=== PATIENT | female | born 1970 | race Hispanic/Latino ===

== ENCOUNTER → 2018-11-02 | Day surgery (SDC) | payer BC, MEDICARE ==
[~2018-11-02] MED LIST: BUPIVACAINE HCL 0.5% INJ 30 ML VIAL INJ ONE; BUSPIRONE HCL5 MG PO; CEFAZOLIN SOD 1 GM/NS 50ML 100 ML IV ONE; CYMBALTA20 MG PO; DEXAMETHASONE SOD PHOS INJ 4 MG/ML VIAL ONE; ETODOLAC400 MG PO; FENTANYL CITRATE/PF 100MCG/2 ML INJ ONE; GABAPENTIN300 MG PO; HUMIRA40 MG/0.8 IM; HYDROMORPHONE 2MG/ML 2 MG/ML ML ONE; KETOROLAC TROMETHAMINE 30 MG/ML VIAL ONE; LEFLUNOMIDE20 MG PO; LIDOCAINE HCL 2% LOCAL INJ 5 ML SDV VIAL INJ ONE; LYRICA50 MG PO; MELOXICAM7.5 MG PO; METOPROLOL SUCC50 MG PO; MIDAZOLAM HCL 2 MG/2 ML VIAL ONE; MUPIROCIN 2% OINT 22 GM TUBE ONE; ONDANSETRON HCL INJ 2MG/ML 2ML 2 MG/ML VIAL ONE; ONDANSETRON PO; PROPOFOL IV EMULSION 10 MG/ML 20 ML VIAL ONE; SEVOFLURANE INHAL SOLN 250 ML PEN BTL ONE; SULFASALAZINE500 MG PO; TIZANIDINE HCL4 MG PO; TYLENOL WITH C1 EACH PO
--- OUTSIDE RECORDS SUMMARY | 2018-11-02 09:01 | XMS REPORT | Continuity of Care Document ---
Author Author YEVVO Address Unknown Phone Unavailable Care Team Providers Care Sanitation Engineer Name Role Phone [employer] Unavailable Unavailable Problems Problem Status Onset Date Classification Date Reported Comments Source R19.7 R13.10 Active 04/14/2018 [facility] Low back pain 03/05/2018 09/16/2018 [facility] Back pain 02/27/2018 09/16/2018 [facility] Abdominal pain 02/27/2018 09/16/2018 [facility] ABD PAIN Active 02/27/2018 [facility] Klebsiella2, 3 Active 07/28/2014 Problem 10/30/2018 ESBL (+), MDRO, URINE, 07/28/2014 Problem added by Discern Expert. [facility] UNK Active 04/21/2014 [facility] 682.2/789.00/45100 Active 04/21/2014 [facility] 789.06 Active 03/21/2014 [facility] ABD PAIN; INFECTED LAP BAND Active 03/21/2014 [facility] LWR BACK PAIN, DIZZY Active 03/06/2014 [facility] POSSIBLE LAP BAND INFECTION Active 03/06/2014 [facility] ABDOMINAL PAIN Active 03/06/2014 [facility] 278.01 Active 01/26/2014 [facility] Discharge Diagnosis: GERD 01/09/2014 01/12/2014 [facility] DOCTOR SENT Active 01/09/2014 [facility] 530.81 Active 12/23/2013 [facility] Muscle spasm of back2 Active Problem 07/31/2014 2left lower rib cage also [facility] Acid reflux Resolved Problem 10/30/2018 [facility] Anxiety Active Problem 10/30/2018 [facility] Chest pain at rest1 Resolved Problem 10/30/2018 retrosternal region with movement but no exertionally [facility] Dysphagia Active Problem 10/30/2018 [facility] Muscle spasm of back4 Active Problem 10/30/2018 left lower rib cage also [facility] SOBOE - Shortness of breath on exertion Resolved Problem 10/30/2018 JULIO Salgado,[facility] Right lower quadrant pain 09/16/2018 [facility] Nausea with vomiting, unspecified 09/16/2018 [facility] Dysuria 09/16/2018 [facility] Anxiety disorder, unspecified 09/16/2018 [facility] Personal history of nicotine dependence 09/16/2018 [facility] Unspecified ovarian cyst, left side 09/16/2018 [facility] Other snf drug therapy 09/16/2018 [facility] FEVER Active [facility] ABDMNAL PAIN UNSPCF SITE Active [facility] CELLULITIS OF TRUNK Active [facility] 789.00 Active [facility] 997.91 Active [facility] Medications Medication Details Route Status Patient Instructions Ordering Provider Order Date Source Medrol 4 mg oral tablet =1 pkt, PO, ONCE, as directed on package labeling, # 21 tab, 0 Refill(s) Active 02/27/2018 [facility] Ondansetron 4 MG Oral Tablet [Zofran] 4 mg=1 tab, PO, BID, # 10 tab, 0 Refill(s) Active 02/27/2018 [facility] Acetaminophen 300 MG / Codeine Phosphate 30 MG Oral Tablet [Tylenol with Codeine #3] 1 - 2 tab, PO, Q4H, PRN Pain, X 3 day, # 20 tab, 0 Refill(s) No Longer Active 02/27/2018 [facility] Acetaminophen 325 MG / Hydrocodone Bitartrate 7.5 MG Oral Tablet [Proctor 7.5/325] 1 tab, Route: PO, Drug Form: TAB, Dosing Weight 98.636, kg, ONCE, STAT, Start date: 02/27/18 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, Stop date: 02/27/18 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 Inactive 02/27/2018 [facility] Zofran 4 mg, Route: IVP, Drug form: INJ, ONCE, Dosing Weight 98.636, kg, Priority: STAT, Start date: 02/27/18 5:33:00 LOGGING OPERATIONS INSPECTOR, Stop date: 02/27/18 5:33:00 LOGGING OPERATIONS INSPECTOR Inactive 02/27/2018 [facility] Sodium Bicarbonate 650 MG Oral Tablet 1,300 mg=2 tab, PO, Q12H, # 56 tab, 0 Refill(s) Active 05/03/2014 [facility] clarithromycin 250 mg oral tablet 250 mg=1 tab, PO, [id number], # 28 tab, 0 Refill(s) Active 05/03/2014 [facility] Levofloxacin 750 MG Oral Tablet [Levaquin] 750 mg=1 tab, PO, Q48H, # 7 tab, 0 Refill(s) Active 05/03/2014 [facility] Cefazolin 2 gm, 100 mL, Route: IVPB, Drug form: INJ, ONCALL, Dosing Weight 91.023, kg, Start date: 05/01/14 13:00:00, Duration: 30 day, Stop date: 05/31/14 12:59:00Notes: Same as: Ancef No Longer Active 05/01/2014 [facility] Clindamycin 900 mg, 6 mL, Route: IVPB, Drug form: INJ, PRE OP, Dosing Weight 91.023, kg, Start date: 05/01/14 13:00:00, Duration: 30 day, Stop date: 05/31/14 12:59:00Notes: (Same As: Cleocin) Inactive 05/01/2014 [facility] Sodium Bicarbonate 1,300 mg, 2 tab, Route: PO, Drug form: TAB, Q12H, Dosing Weight 91.023, kg, Start date: 04/30/14 21:00:00, Duration: 30 day, Stop date: 05/30/14 9:00:00Notes: "Dissolve tablet in a glass of water p rior to oral administration. STOMACH WARNING: To avoid serious injury, do not take until tablet is completely dissolved. It is very important not to take this product when overly full from food or drink." No Longer Active 05/01/2014 [facility] Lovenox 30 mg, 0.3 mL, Route: SUB-Q, Drug form: INJ, [id number], Dosing Weight 91.023, kg, For CrCl Notes: (Same as: Lovenox) No Longer Active 04/30/2014 [facility] gabapentin 100 MG Oral Capsule [Neurontin] 100 mg, 1 cap, Route: PO, Drug form: CAP, Daily, Dosing Weight 91.023, kg, Start date: 04/30/14 9:00:00, Duration: 30 day, Stop date: 05/29/14 9:00:00Notes: (Same as: Neurontin) No Longer Active 04/30/2014 [facility] Biaxin 250 mg, 1 tab, Route: PO, Drug form: TAB, [id number], Dosing Weight 91.023, kg, Start date: 04/30/14 2:00:00, Duration: 30 day, Stop date: 05/29/14 14:00:00Notes: (Same As: Biaxin) No Longer Active 04/30/2014 [facility] Reglan 5 mg, 1 mL, Route: IV, Drug form: INJ, [id number], Dosing Weight 91.023, kg, Start date: 04/29/14 17:00:00, Duration: 30 day, Stop date: 05/29/14 9:00:00Notes: (Same as: Reglan) No Longer Active 04/29/2014 [facility] gabapentin 100 MG Oral Capsule 100 mg, 1 cap, Route: PO, Drug form: CAP, TID, Dosing Weight 91.023, kg, Start date: 04/28/14 13:00:00, Duration: 30 day, Stop date: 05/28/14 9:00:00Notes: (Same as: Neurontin) No Longer Active 04/28/2014 [facility] cyclobenzaprine 10 mg, 1 tab, Route: PO, Drug form: TAB, TID, Dosing Weight 91.023, kg, PRN as needed for muscle spasm, Start date: 04/28/14 9:17:00, Stop date: 05/28/14 9:16:00Notes: (Same As: Flexeril) No Longer Active 04/28/2014 [facility] Zosyn 3.375 gm, 100 mL, Route: IVPB, Drug form: PDR/INJ, [id number], Dosing Weight 91.023, kg, Start date: 04/27/14 16:00:00, Duration: 30 day, Stop date: 05/27/14 4:00:00Notes: (Same as: Zosyn) Infuse over 4 hours. Activate and reconstitute before use. Dosing based on Piperacillin component Inactive 04/27/2014 [facility] Biaxin 250 mg, 1 tab, Route: PO, Drug form: TAB, [id number], Dosing Weight 91.023, kg, Start date: 04/27/14 14:00:00, Stop date: 05/27/14 2:00:00Notes: (Same As: Biaxin) No Longer Active 04/27/2014 [facility] Levaquin 750 mg, 150 mL, Route: IVPB, Drug form: SOLN, [id number], Dosing Weight 91.023, kg, Start date: 04/27/14 14:00:00, Duration: 30 day, Stop date: 05/25/14 14:00:00Notes: (Same as:Levaquin) No Longer Active 04/27/2014 [facility] Vitamin B1 100 mg, 1 tab, Route: PO, Drug form: TAB, Daily, Start date: 04/27/14 9:00:00, Duration: 30 day, Stop date: 05/26/14 9:00:00Notes: (Same As: Vitamin B1) No Longer Active 04/27/2014 [facility] NS 1000 mL 1,000 mL, Rate: 80 ml/hr, Infuse over: 12.5 hr, Route: IV, Dosing Weight 91.023 kg, Total Volume: 1,000, Start date: 04/26/14 10:07:00, Duration: 30 day, Stop date: 05/26/14 10:06:00 No Longer Active 04/26/2014 [facility] Sodium Chloride 0.154 MEQ/ML Injectable Solution 500 mL, 500 ml/hr, Infuse Over: 1 hr, Route: IV, 500, Drug form: INJ, ONCE, Priority: STAT, Dosing Weight 91.023 kg, Start date: 04/26/14 10:07:00, Duration: 1 doses or times, Stop date: 04/26/14 10:07:00 Inactive 04/26/2014 [facility] phenol topical 1.4% spray 1 spray, Route: PO, Q2H, Drug form: SPRY, PRN Sore Throat, Start date: 04/25/14 13:04:00, Duration: 30 day, Stop date: 05/25/14 13:03:00 No Longer Active 04/25/2014 [facility] Thiamine 100 mg, 1 mL, Route: IVPB, Drug form: INJ, Daily, Dosing Weight 91.023, kg, Priority: NOW, Start date: 04/25/14 12:18:00, Duration: 30 day, Stop date: 05/25/14 9:00:00Notes: (Same As: Vitamin B1) PRO TECT FROM LIGHT No Longer Active 04/25/2014 [facility] Benzocaine 50 MG/ML Mucosal Vidal [Cepacol] 1 spray, Route: MUCOUS MEM, Drug Form: SOLN, Dosing Weight 91.023, kg, Q2H, PRN Sore Throat, Start date: 04/25/14 12:11:00, Duration: 30 day, Stop date: 05/25/14 12:10:00 Inactive 04/25/2014 [facility] Enoxaparin 30 mg, 0.3 mL, Route: SUB-Q, Drug form: INJ, [id number], Dosing Weight 91.023, kg, Start date: 04/25/14 1:19:00, Duration: 30 day, Stop date: 05/24/14 13:19:00Notes: (Same as: Lovenox) No Longer Active 04/25/2014 [facility] Zosyn 3.375 gm, 100 mL, Route: IVPB, Drug form: PDR/INJ, [id number], Dosing Weight 91.023, kg, Start date: 04/24/14 19:00:00, Duration: 30 day, Stop date: 05/24/14 11:00:00Notes: (Same as: Zosyn) Infuse over 4 hours. Activate and reconstitute before use. Dosing based on Piperacillin component No Longer Active 04/25/2014 [facility] Vancomycin 1 gm, 200 mL, Route: IVPB, Drug form: INJ, [id number], Dosing Weight 91.023, kg, Start date: 04/24/14 19:00:00, Duration: 30 day, Stop date: 05/24/14 7:00:00 No Longer Active 04/25/2014 [facility] Dilaudid 0.5 mg, 0.5 mL, Route: IV, Drug form: INJ, Q3H, Dosing Weight 91.023, kg, PRN Pain Score 7-10, Start date: 04/24/14 18:31:00, Duration: 30 day, Stop date: 05/24/14 18:30:00 No Longer Active 04/25/2014 [facility] Ketorolac 30 mg, 1 mL, Route: IVP, Drug form: INJ, Q6H, Dosing Weight 91.023, kg, Start date: 04/24/14 18:00:00, Duration: 6 doses or times, Stop date: 04/26/14 0:00:00Notes: (Same as:Toradol) IV bolus must be given >15 seconds. Give IM administration slowly and deeply into the muscle. Not for use > 4 days No Longer Active 04/25/2014 [facility] Metoclopramide 10 mg, 2 mL, Route: IVP, Drug form: INJ, Q8H, Dosing Weight 91.023, kg, Start date: 04/24/14 16:00:00, Duration: 30 day, Stop date: 05/24/14 8:00:00Notes: (Same as: Reglan) No Longer Active 04/24/2014 [facility] Ondansetron 4 mg, 2 mL, Route: IVP, Drug form: INJ, Q6H, Dosing Weight 91.023, kg, PRN Nausea & Vomiting, Start date: 04/24/14 15:55:00, Stop date: 05/24/14 13:21:00Notes: (Same as: Zofran) No Longer Active 04/24/2014 [facility] Flagyl 500 mg, 100 mL, Route: IVPB, Drug form: INJ, [id number], Dosing Weight 91.023, kg, Start date: 04/24/14 14:00:00, Duration: 30 day, Stop date: 05/24/14 8:00:00Notes: (Same as: Flagyl) Avoid alcohol. Inactive 04/24/2014 [facility] Levofloxacin 500 mg, 100 mL, Route: IVPB, Drug form: INJ, [id number], Dosing Weight 91.023, kg, Start date: 04/24/14 14:00:00, Duration: 30 day, Stop date: 05/23/14 14:00:00Notes: (Same as:Levaquin) Inactive 04/24/2014 [facility] Dilaudid 0.5 mg, 0.5 mL, Route: IV, Drug form: INJ, POST OP, Dosing Weight 91.023, kg, PRN Pain Score 7-10, Start date: 04/24/14 13:35:00, Duration: 30 day, Stop date: 05/24/14 13:34:00 No Longer Active 04/24/2014 [facility] Zofran 4 mg, Route: IVP, Drug form: INJ, ONCE, Dosing Weight 91.023, kg, Start date: 04/24/14 13:34:00, Stop date: 04/24/14 13:34:00 Inactive 04/24/2014 [facility] Acetaminophen 650 mg, 1 supp, Route: HI, Drug form: SUPP, Q4H, Dosing Weight 91.023, kg, PRN For Temp > 100.4 F, Start date: 04/24/14 13:23:00, Duration: 30 day, Stop date: 05/24/14 13:22:00Notes: Max acetaminophe e=9345 mg/day (4 gm/day). (Same as: Tylenol) No Longer Active 04/24/2014 [facility] Metoprolol 2.5 mg, 2.5 mL, Route: IVP, Drug form: INJ, Q6H, Dosing Weight 91.023, kg, PRN Elevated BP, Systolic BP >180 or Diastolic BP >100, Start date: 04/24/14 13:23:00, Duration: 30 day, Stop date: 05/24/14 13:22:00Notes: (Same as: Lopressor) Push over 2 minutes No Longer Active 04/24/2014 [facility] Ondansetron 4 mg, Route: IVP, Q12H, Dosing Weight 91.023, kg, PRN Nausea & Vomiting, Start date: 04/24/14 13:23:00, Duration: 30 day, Stop date: 05/24/14 13:22:00 Inactive 04/24/2014 [facility] Promethazine 12.5 mg, 0.5 mL, Route: IM, Drug form: INJ, Q4H, Dosing Weight 91.023, kg, PRN Nausea & Vomiting, Start date: 04/24/14 13:23:00, Duration: 30 day, Stop date: 05/24/14 13:22:00Notes: Do not give IV pu sh. (Same as: Phenergan) No Longer Active 04/24/2014 [facility] Calcium Chloride 0.0014 MEQ/ML / Potassium Chloride 0.004 MEQ/ML / Sodium Chloride 0.103 MEQ/ML / Sodium Lactate 0.028 MEQ/ML Injectable Solution 1,000 mL, Rate: 125 ml/hr, Infuse over: 8 hr, Route: IV, Dosing Weight 91.023 kg, Total Volume: 1,000, Start date: 04/24/14 13:23:00, Duration: 30 day, Stop date: 05/24/14 13:22:00 No Longer Active 04/24/2014 [facility] Cefazolin 2 gm, Route: IVPB, ONCALL, Dosing Weight 91.818, kg, Start date: 04/24/14 9:00:00, Duration: 30 day, Stop date: 05/24/14 8:59:00 Inactive 04/24/2014 [facility] heparin sodium, porcine 2500 UNT/ML Injectable Solution 5,000 unit, 1 mL, Route: SUB-Q, Drug form: INJ, ONCE, Dosing Weight 92.273, kg, Start date: 04/24/14 8:44:00, Stop date: 04/24/14 8:44:00 Inactive 04/24/2014 [facility] 72 HR Scopolamine 0.0139 MG/HR Transdermal Patch 1 patch, Route: TOP, Drug Form: ERFILM, Dosing Weight 92.273, kg, ONCE, Start date: 04/24/14 8:44:00, Stop date: 04/24/14 8:44:00 Inactive 04/24/2014 [facility] [id number] 1,000 mL 1,000 mL, Rate: 100 ml/hr, Infuse over: 10 hr, Route: IV, Dosing Weight 91.818 kg, Total Volume: 1,000, Start date: 04/24/14 8:44:00, Duration: 30 day, Stop date: 05/24/14 8:43:00 Inactive 04/24/2014 [facility] Calcium Chloride 0.0014 MEQ/ML / Potassium Chloride 0.004 MEQ/ML / Sodium Chloride 0.103 MEQ/ML / Sodium Lactate 0.028 MEQ/ML Injectable Solution 1,000 mL, Rate: 125 ml/hr, Infuse over: 8 hr, Route: IV, Dosing Weight 91.818 kg, Total Volume: 1,000, Start date: 04/24/14 8:44:00, Duration: 30 day, Stop date: 05/24/14 8:43:00 Inactive 04/24/2014 [facility] ibuprofen 600 mg oral tablet 600 mg=1 tab, PO, Q6H, Pain, take with food, # 30 tab, 0 Refill(s)Special Instructions: take with food Active 04/21/2014 [facility] cyclobenzaprine 10 mg oral tablet 10 mg=1 tab, PO, Daily, for spasm, # 30 tab, 0 Refill(s) Active 04/21/2014 [facility] gabapentin 100 MG Oral Capsule 200 mg=2 cap, PO, TID, # 720 cap, 0 Refill(s) Active 04/21/2014 [facility] Sodium Chloride 0.154 MEQ/ML Injectable Solution 500 mL, Rate: 25 ml/hr, Infuse over: 20 hr, Route: IV, Dosing Weight 92.273 kg, Total Volume: 500, Start date: 04/21/14 12:03:00, Duration: 30 day, Stop date: 05/21/14 12:02:00 Inactive 04/21/2014 [facility] Acetaminophen 300 MG / Codeine Phosphate 30 MG Oral Tablet [Tylenol with Codeine #3] 1 - 2 tab, PO, Q6H, Pain, # 24 tab, 0 Refill(s) Active 03/10/2014 [facility] Levofloxacin 500 MG Oral Tablet [Levaquin] 500 mg=1 tab, PO, Q24H, # 14 tab, 0 Refill(s) Active 03/10/2014 [facility] Pepcid 20 mg, 1 tab, Route: PO, Drug form: TAB, Q12H, Start date: 03/08/14 21:00:00, Duration: 30 day, Stop date: 04/07/14 9:00:00Notes: (Same as: Pepcid) No Longer Active 03/09/2014 [facility] Fluzone Quadrivalent [id number] 0.5 mL, Route: IM, Drug Form: SUSP, Daily, Start date: 03/08/14 10:00:00, Duration: 1 doses or times, Stop date: 03/08/14 10:00:00Notes: (Same as: Fluzone Quadrivalent) Inactive 03/08/2014 [facility] Famotidine 20 mg, 2 mL, Route: IVP, Drug form: INJ, Q12H, Dosing Weight 92.273, kg, Start date: 03/07/14 21:00:00, Duration: 30 day, Stop date: 04/06/14 9:00:00Notes: (Same as: Pepcid) Can be dilute in 5-10cc NS IVP: Slow IV push over at least 2 minutes. No Longer Active 03/08/2014 [facility] Ketorolac 30 mg, 1 mL, Route: IVP, Drug form: INJ, Q6H, Dosing Weight 92.273, kg, Start date: 03/07/14 18:00:00, Duration: 6 doses or times, Stop date: 03/09/14 0:00:00Notes: (Same as:Toradol) IV bolus must be given >15 seconds. Give IM administration slowly and deeply into the muscle. Not for use > 4 days No Longer Active 03/08/2014 [facility] Metoclopramide 10 mg, 2 mL, Route: IVP, Drug form: INJ, Q8H, Dosing Weight 92.273, kg, Start date: 03/07/14 16:00:00, Duration: 30 day, Stop date: 04/06/14 8:00:00Notes: (Same as: Reglan) No Longer Active 03/07/2014 [facility] Ondansetron 4 mg, 2 mL, Route: IVP, Drug form: INJ, Q12H, Dosing Weight 92.273, kg, PRN Nausea & Vomiting, Start date: 03/07/14 15:37:00, Duration: 30 day, Stop date: 04/06/14 15:36:00Notes: (Same as: Zofran) No Longer Active 03/07/2014 [facility] Promethazine 12.5 mg, 0.5 mL, Route: IM, Drug form: INJ, Q4H, Dosing Weight 92.273, kg, PRN Nausea & Vomiting, Start date: 03/07/14 15:37:00, Duration: 30 day, Stop date: 04/06/14 15:36:00Notes: Do not give IV pu sh. (Same as: Phenergan) No Longer Active 03/07/2014 [facility] Metoprolol 2.5 mg, 2.5 mL, Route: IVP, Drug form: INJ, Q6H, Dosing Weight 92.273, kg, PRN Elevated BP, Systolic BP >180 or Diastolic BP >100, Start date: 03/07/14 15:37:00, Duration: 30 day, Stop date: 04/06/14 15:36:00Notes: (Same as: Lopressor) Push over 2 minutes No Longer Active 03/07/2014 [facility] Acetaminophen 650 mg, 1 supp, Route: HI, Drug form: SUPP, Q4H, Dosing Weight 92.273, kg, PRN For Temp > 100.4 F, Start date: 03/07/14 15:37:00, Duration: 30 day, Stop date: 04/06/14 15:36:00Notes: Max acetaminophe w=1727 mg/day (4 gm/day). (Same as: Tylenol) No Longer Active 03/07/2014 [facility] Calcium Chloride 0.0014 MEQ/ML / Potassium Chloride 0.004 MEQ/ML / Sodium Chloride 0.103 MEQ/ML / Sodium Lactate 0.028 MEQ/ML Injectable Solution 1,000 mL, Rate: 125 ml/hr, Infuse over: 8 hr, Route: IV, Dosing Weight 92.273 kg, Total Volume: 1,000, Start date: 03/07/14 15:37:00, Duration: 30 day, Stop date: 04/06/14 15:36:00 No Longer Active 03/07/2014 [facility] Vancomycin 1 gm, 200 mL, Route: IVPB, Drug form: INJ, [id number], Dosing Weight 92.273, kg, Start date: 03/07/14 13:30:00, Duration: 30 day, Stop date: 04/06/14 1:30:00 No Longer Active 03/07/2014 [facility] cefepime 1 gm, Route: IVPB, [id number], Dosing Weight 92.273, kg, (CrCl 30 - 49 ml/min), Start date: 03/07/14 12:00:00, Duration: 30 day, Stop date: 04/06/14 0:00:00Notes: (Same As: Maxipime) No Longer Active 03/07/2014 [facility] Morphine 4 mg, 2 mL, Route: IVP, Drug form: INJ, Q3H, Dosing Weight 92.273, kg, PRN Pain Score 7-10, Start date: 03/07/14 11:32:00, Stop date: 04/06/14 11:24:00Notes: (Same as:MORPhine Sulfate) No Longer Active 03/07/2014 [facility] Morphine 4 mg, Route: IVP, Q4H, Dosing Weight 92.273, kg, PRN Pain, Start date: 03/07/14 11:26:00, Duration: 30 day, Stop date: 04/06/14 11:25:00 Inactive 03/07/2014 [facility] Naloxone 0.1 mg, 0.25 mL, Route: IVP, Drug form: INJ, Q2MIN, Dosing Weight 92.273, kg, PRN Narcotic Reversal, Start date: 03/07/14 10:53:00, Duration: 4 doses or times, Stop date: Limited # of timesNotes: Same as Narcan No Longer Active 03/07/2014 [facility] Flumazenil 0.1 mg, 1 mL, Route: IVP, Drug form: INJ, Q5Min, Dosing Weight 92.273, kg, PRN Other -See Comment, Start date: 03/07/14 10:53:00, Duration: 30 day, Stop date: 04/06/14 10:52:00Notes: (Same as: Errol reeder) No Longer Active 03/07/2014 [facility] Lactated Ringers IV 500 mL 500 mL, Rate: 40 ml/hr, Infuse over: 12.5 hr, Route: IV, Dosing Weight 92.273 kg, Total Volume: 500, Start date: 03/07/14 9:27:00, Duration: 1 day, Stop date: 03/08/14 9:26:00 Inactive 03/07/2014 [facility] Sodium Chloride 0.154 MEQ/ML Injectable Solution 500 mL, Rate: 25 ml/hr, Infuse over: 20 hr, Route: IV, Dosing Weight 92.273 kg, Total Volume: 500, Start date: 03/07/14 9:27:00, Duration: 30 day, Stop date: 04/06/14 9:26:00 Inactive 03/07/2014 [facility] Influenza Virus Vaccine, Inactivated N-Wswsnicz-58 (H3N2)-like virus (U-Sbwrsjc-957-2007 [facility] X-175C) strain / Influenza Virus Vaccine, Inactivated N-Bssbeinu-52-2007, IVR-148 (H1N1) strain / Influenza Virus Vaccine, Inactivated, N-Emghgsm-8-2005-lik 0.5 mL, Route: IM, Drug Form: SUSP, Daily, Start date: 03/07/14 9:00:00, Duration: 1 doses or times, Stop date: 03/07/14 9:00:00Notes: (Same as: Fluzone Quadrivalent) No Longer Active 03/07/2014 [facility] acetaminophen-codeine #3 2 tab, PO, PRN, for pain, 0 Refill(s) No Longer Active 03/07/2014 [facility] Saline Flush 0.9% 10 ml, Route: IVP, Drug Form: INJ, Dosing Weight 92.273, kg, PRN, PRN Line Flush, Start date: 03/07/14 2:20:00, Duration: 30 day, Stop date: 04/06/14 2:19:00Notes: (Same as: BD Posiflush) No Longer Active 03/07/2014 [facility] Sodium Chloride 0.154 MEQ/ML Injectable Solution 1,000 mL, Rate: 100 ml/hr, Infuse over: 10 hr, Route: IV, Dosing Weight 92.273 kg, Total Volume: 1,000, Start date: 03/07/14 2:20:00, Duration: 30 day, Stop date: 04/06/14 2:19:00 Inactive 03/07/2014 [facility] Acetaminophen 650 mg, 2 tab, Route: PO, Drug form: TAB, Q4H, Dosing Weight 92.273, kg, PRN Pain 1-3/Temp > 100.4 F, Start date: 03/07/14 2:20:00, Duration: 30 day, Stop date: 04/06/14 2:19:00Notes: Do not exceed 4 gm/day. (Same as: Tylenol) Inactive 03/07/2014 [facility] Ondansetron 4 mg, 2 mL, Route: IVP, Drug form: INJ, Q8H, Dosing Weight 92.273, kg, PRN Nausea & Vomiting, Start date: 03/07/14 2:20:00, Duration: 30 day, Stop date: 04/06/14 2:19:00Notes: (Same as: Zofran) Inactive 03/07/2014 [facility] Morphine 2 mg, 1 mL, Route: IVP, Drug form: INJ, Q3H, Dosing Weight 92.273, kg, PRN Pain Score 4-6, Start date: 03/07/14 2:20:00, Duration: 30 day, Stop date: 04/06/14 2:19:00Notes: (Same as:MORPhine Sulfate) No Longer Active 03/07/2014 [facility] Docusate 100 mg, 1 cap, Route: PO, Drug form: CAP, BID, Dosing Weight 92.273, kg, PRN Constipation, Start date: 03/07/14 2:20:00, Duration: 30 day, Stop date: 04/06/14 2:19:00Notes: (Same as: Colace) (Do Not Crush) No Longer Active 03/07/2014 [facility] Vancomycin 1,750 mg, 500 mL, Route: IVPB, Drug form: SOLN, ONCE, Dosing Weight 92.273, kg, Priority: STAT, Start date: 03/07/14 0:03:00, Stop date: 03/07/14 0:03:00Notes: Same as: Vancocin Inactive 03/07/2014 [facility] cefepime 1 gm, Route: IVPB, ONCE, Dosing Weight 92.273, kg, Priority: STAT, Start date: 03/07/14 0:03:00, Stop date: 03/07/14 0:03:00 Inactive 03/07/2014 [facility] Flagyl 500 mg, 100 mL, Route: IVPB, Drug form: INJ, ONCE, Dosing Weight 92.273, kg, Priority: STAT, Start date: 03/07/14 0:03:00, Stop date: 03/07/14 0:03:00Notes: (Same as: Flagyl) Avoid alcohol. Inactive 03/07/2014 [facility] Morphine 4 mg, Route: IVP, Drug form: INJ, ONCE, Dosing Weight 92.273, kg, Priority: STAT, Start date: 03/06/14 23:04:00, Stop date: 03/06/14 23:04:00 Inactive 03/07/2014 [facility] Morphine 4 mg, Route: IVP, Drug form: INJ, ONCE, Dosing Weight 92.273, kg, Priority: STAT, Start date: 03/06/14 20:25:00, Stop date: 03/06/14 20:25:00 Inactive 03/07/2014 [facility] Famotidine 20 MG Oral Tablet [Pepcid] 20 mg, Route: IV, ONCE, Dosing Weight 92.273, kg, Start date: 03/06/14 19:15:00, Stop date: 03/06/14 19:15:00 Inactive 03/07/2014 [facility] Zofran 4 mg, Route: IVP, Drug form: INJ, ONCE, Dosing Weight 92.273, kg, Priority: STAT, Start date: 03/06/14 19:15:00, Stop date: 03/06/14 19:15:00 Inactive 03/07/2014 [facility] normal saline 0.9% IV 1000 mL 1,000 mL, Rate: 1,000 ml/hr, Infuse over: 1 hr, Route: IV, Dosing Weight 92.273 kg, Total Volume: 1,000, Priority: STAT, Start date: 03/06/14 19:15:00, Duration: 1 doses or times, Stop date: 03/06/14 20:14:00 Inactive 03/07/2014 [facility] Metoclopramide 10 mg, Route: IVP, Drug form: INJ, Q8H, Dosing Weight 100.057, kg, Start date: 02/07/14 16:00:00, Duration: 30 day, Stop date: 03/09/14 8:00:00 Inactive 02/07/2014 [facility] Ketorolac 30 mg, Route: IVP, Q6H, Dosing Weight 100.057, kg, Start date: 02/07/14 12:00:00, Duration: 6 doses or times, Stop date: 02/08/14 18:00:00 Inactive 02/07/2014 [facility] Acetaminophen 20 MG/ML / Hydrocodone Bitartrate 0.667 MG/ML Oral Solution [Zolvit] 15 mL, Route: PO, Dosing Weight 100.057, kg, ONCE, Start date: 02/07/14 10:33:00, Stop date: 02/07/14 10:33:00 Inactive 02/07/2014 [facility] Promethazine 6.25 mg, Route: IVPB, ONCE, Dosing Weight 100.057, kg, PRN Nausea & Vomiting, Start date: 02/07/14 9:05:00 Inactive 02/07/2014 [facility] Ondansetron 4 mg, Route: IVP, ONCE, Dosing Weight 100.057, kg, PRN Nausea & Vomiting, Start date: 02/07/14 9:05:00 Inactive 02/07/2014 [facility] Oxycodone 10 mg, Route: PO, Drug form: TAB, Q4H, Dosing Weight 100.057, kg, PRN Pain Score 7-10, Start date: 02/07/14 9:05:00, Duration: 30 day, Stop date: 03/09/14 9:04:00 Inactive 02/07/2014 [facility] Hydralazine 10 mg, Route: IVP, Q20Min, Dosing Weight 100.057, kg, PRN Elevated BP, Start date: 02/07/14 9:05:00, Duration: 2 doses or times, Stop date: Limited # of times Inactive 02/07/2014 [facility] Ketorolac 30 mg, Route: IVP, ONCE, Dosing Weight 100.057, kg, Start date: 02/07/14 9:05:00, Duration: 1 doses or times, Stop date: 02/07/14 9:05:00 Inactive 02/07/2014 [facility] Metoprolol 1 mg, Route: IVP, Q5Min, Dosing Weight 100.057, kg, PRN Other -See Comment, Start date: 02/07/14 9:05:00, Duration: 5 doses or times, Stop date: Limited # of times Inactive 02/07/2014 [facility] Fentanyl 25 microgram, Route: IVP, Q5Min, Dosing Weight 100.057, kg, PRN Pain Score 4-6, Start date: 02/07/14 9:05:00, Duration: 4 doses or times, Stop date: Limited # of times Inactive 02/07/2014 [facility] Naloxone 0.04 mg, Route: IVP, Q2MIN, Dosing Weight 100.057, kg, PRN Narcotic Reversal, Start date: 02/07/14 9:05:00, Duration: 8 doses or times, Stop date: Limited # of times Inactive 02/07/2014 [facility] Flumazenil 0.2 mg, Route: IVP, PRN, Dosing Weight 100.057, kg, PRN Benzodiazepine Reversal, Initial dose, Start date: 02/07/14 9:05:00, Duration: 30 day, Stop date: 03/09/14 9:04:00 Inactive 02/07/2014 [facility] Hydromorphone 0.5 mg, Route: IVP, Q5Min, Dosing Weight 100.057, kg, PRN Pain Score 7-10, Start date: 02/07/14 9:05:00, Duration: 4 doses or times, Stop date: Limited # of times Inactive 02/07/2014 [facility] Morphine 4 mg, Route: IVP, Q5Min, Dosing Weight 100.057, kg, PRN Pain Score 7-10, Start date: 02/07/14 9:05:00, Duration: 3 doses or times, Stop date: Limited # of times Inactive 02/07/2014 [facility] Meperidine 12.5 mg, Route: IVP, Q30Min, Dosing Weight 100.057, kg, PRN Other -See Comment, For shivering, Start date: 02/07/14 9:05:00, Duration: 2 doses or times, Stop date: Limited # of times Inactive 02/07/2014 [facility] Glycopyrrolate 0.2 mg, Route: IVP, Q5Min, Dosing Weight 100.057, kg, PRN Bradycardia, Start date: 02/07/14 9:05:00, Duration: 3 doses or times, Stop date: Limited # of times Inactive 02/07/2014 [facility] Diphenhydramine 12.5 mg, Route: IVP, Drug form: INJ, Q6H, Dosing Weight 100.057, kg, PRN Itching, Start date: 02/07/14 9:05:00, Duration: 30 day, Stop date: 03/09/14 9:04:00 Inactive 02/07/2014 [facility] Metoprolol 2.5 mg, Route: IVP, Q6H, Dosing Weight 100.057, kg, PRN Elevated BP, Systolic BP >180 or Diastolic BP >100, Start date: 02/07/14 8:43:00, Duration: 30 day, Stop date: 03/09/14 8:42:00 Inactive 02/07/2014 [facility] Promethazine 12.5 mg, Route: IM, Q4H, Dosing Weight 100.057, kg, PRN Nausea & Vomiting, Start date: 02/07/14 8:43:00, Duration: 30 day, Stop date: 03/09/14 8:42:00 Inactive 02/07/2014 [facility] Acetaminophen 650 mg, Route: PO, Drug form: ELIX, Q4H, Dosing Weight 100.057, kg, PRN Pain Score 1-3, Start date: 02/07/14 8:43:00, Duration: 30 day, Stop date: 03/09/14 8:42:00 Inactive 02/07/2014 [facility] Ondansetron 4 mg, Route: IVP, Q12H, Dosing Weight 100.057, kg, PRN Nausea & Vomiting, Start date: 02/07/14 8:43:00, Duration: 30 day, Stop date: 03/09/14 8:42:00 Inactive 02/07/2014 [facility] Calcium Chloride 0.0014 MEQ/ML / Potassium Chloride 0.004 MEQ/ML / Sodium Chloride 0.103 MEQ/ML / Sodium Lactate 0.028 MEQ/ML Injectable Solution 1,000 mL, Rate: 25 ml/hr, Infuse over: 40 hr, Route: IV, Dosing Weight 100.057 kg, Total Volume: 1,000, Start date: 02/07/14 8:06:00, Duration: 30 day, Stop date: 03/09/14 8:05:00 Inactive 02/07/2014 [facility] Cefazolin 2 gm, 100 mL, Route: IVPB, Drug form: INJ, ONCALL, Dosing Weight 100.057, kg, Start date: 02/01/14 15:00:00, Duration: 7 day, Stop date: 02/08/14 14:59:00Notes: Same as: Ancef No Longer Active 02/01/2014 [facility] 72 HR Scopolamine 0.0139 MG/HR Transdermal Patch 1 patch, Route: TOP, Drug Form: ERFILM, Dosing Weight 104.318, kg, ONCE, Start date: 02/01/14 14:01:00, Stop date: 02/01/14 14:01:00Notes: Change patch every 72 hours (Same as: Transderm-Scop) No Longer Active 02/01/2014 [facility] mt570k 1,000 mL 1,000 mL, Rate: 100 ml/hr, Infuse over: 10 hr, Route: IV, Dosing Weight 100.057 kg, Total Volume: 1,000, Start date: 02/01/14 14:01:00, Duration: 30 day, Stop date: 03/03/14 14:00:00 No Longer Active 02/01/2014 [facility] heparin sodium, porcine 2500 UNT/ML Injectable Solution 5,000 unit, 1 mL, Route: SUB-Q, Drug form: INJ, ONCE, Dosing Weight 104.318, kg, Start date: 02/01/14 14:01:00, Stop date: 02/01/14 14:01:00Notes: porcine heparin No Longer Active 02/01/2014 [facility] Calcium Chloride 0.0014 MEQ/ML / Potassium Chloride 0.004 MEQ/ML / Sodium Chloride 0.103 MEQ/ML / Sodium Lactate 0.028 MEQ/ML Injectable Solution 1,000 mL, Rate: 125 ml/hr, Infuse over: 8 hr, Route: IV, Dosing Weight 100.057 kg, Total Volume: 1,000, Start date: 02/01/14 14:01:00, Duration: 7 day, Stop date: 02/08/14 14:00:00 No Longer Active 02/01/2014 [facility] GI cocktail 30 mL, Route: PO, Dosing Weight 104.318, kg, ONCE, STAT, Start date: 01/09/14 14:52:00, Stop date: 01/09/14 14:52:00 Inactive 01/09/2014 [facility] GI cocktail 30 mL, Route: PO, Dosing Weight 104.318, kg, ONCE, STAT, Start date: 01/09/14 14:50:00, Stop date: 01/09/14 14:50:00 Inactive 01/09/2014 [facility] Sodium Chloride 0.154 MEQ/ML Injectable Solution 500 mL, 500 ml/hr, Infuse Over: 1 hr, Route: IV, ONCE, Priority: STAT, Dosing Weight 104.318 kg, Start date: 01/09/14 11:07:00, Duration: 1 doses or times, Stop date: 01/09/14 11:07:00 Inactive 01/09/2014 [facility] Naloxone 0.1 mg, 0.25 mL, Route: IVP, Drug form: INJ, Q2MIN, Dosing Weight 106.364, kg, PRN Narcotic Reversal, Start date: 01/03/14 8:37:00, Duration: 4 doses or times, Stop date: Limited # of timesNotes: Same as Narcan Inactive 01/03/2014 [facility] Flumazenil 0.2 mg, 2 mL, Route: IVP, Drug form: INJ, PRN, Dosing Weight 106.364, kg, PRN Other -See Comment, Start date: 01/03/14 8:37:00, Duration: 1 doses or times, Stop date: Limited # of timesNotes: (Same a s: Romazicon) Inactive 01/03/2014 [facility] Sodium Chloride 0.154 MEQ/ML Injectable Solution 1,000 mL, Rate: 25 ml/hr, Infuse over: 40 hr, Route: IV, Dosing Weight 106.364 kg, Total Volume: 1,000, Start date: 01/03/14 7:43:00, Duration: 30 day, Stop date: 02/02/14 7:42:00 Inactive 01/03/2014 [facility] Lactated Ringers IV 500 mL 500 mL, Rate: 40 ml/hr, Infuse over: 12.5 hr, Route: IV, Dosing Weight 106.364 kg, Total Volume: 500, Start date: 01/03/14 5:30:00, Duration: 30 day, Stop date: 02/02/14 5:29:00 Inactive 01/03/2014 [facility] Vitamin D3 PO, Daily, 0 Refill(s) Active 12/29/2013 [facility] pantoprazole 40 mg oral enteric coated tablet 40 mg=1 tab, PO, Daily, # 30 tab, 0 Refill(s) Active 12/29/2013 [facility] sertraline 100 mg oral tablet 100 mg=1 tab, PO, Daily, # 30 tab, 0 Refill(s) Active 12/29/2013 [facility] Fish Oil 1000 mg oral capsule 1,000 mg=1 cap, PO, Daily, 0 Refill(s) Active 12/29/2013 [facility] Allergies, Adverse Reactions, Alerts Substance Category Reaction Severity Reaction type Status Date Reported Comments Source Adhesive Tape Assertion Drug allergy Active JULIO Salgado Immunizations Immunization Date Given Site Status Last Updated Comments Source influenza virus vaccine, inactivated 03/08/2014 Right deltoid completed [place] [facility] Order Name Results Value Reference Range Date Interpretation Comments Source CHEM PANEL A/G Ratio 0.9 0.7 - 1.6 02/27/2018 [facility] CHEM PANEL B/C Ratio 15 6 - 25 02/27/2018 [facility] CHEM PANEL AGAP 14.0 10.0 - 20.0 02/27/2018 [facility] CHEM PANEL Globulin 3.9 2.7 - 4.2 02/27/2018 [facility] CHEM PANEL eGFR 81 02/27/2018 Result Comment: The eGFR is calculated using the CKD-EPI formula. In most young, healthy individuals the eGFR will be >90 mL/min/1.73m2. The eGFR declines with age. An eGFR of 60-89 may be normal in some populations, particularly the elderly, for whom the CKD-EPI formula has not been extensively validated. Use of the eGFR is not recommended in the following populations:

Individuals with unstable creatinine concentrations, including patients and those with serious co-morbid conditions.

Patients with extremes in muscle mass or diet.

The data above are obtained from the National Kidney Disease Education Program (NKDEP) which additionally recommends that when the eGFR is used in patients with extremes of body mass index for purposes of drug dosing, the eGFR should be multiplied by the estimated BMI. [facility] CHEM PANEL Alk Phos 108 39 - 136 02/27/2018 [facility] CHEM PANEL Bili Total 0.4 0.2 - 1.3 02/27/2018 [facility] CHEM PANEL ALT 20 0 - 65 02/27/2018 [facility] CHEM PANEL AST 11 0 - 37 02/27/2018 [facility] CHEM PANEL Creatinine Lvl 0.85 0.50 - 1.40 02/27/2018 [facility] CHEM PANEL BUN 13 7 - 22 02/27/2018 [facility] CHEM PANEL Glucose Lvl 110 70 - 99 02/27/2018 [facility] CHEM PANEL CO2 22 24 - 32 02/27/2018 [facility] CHEM PANEL Calcium Lvl 8.8 8.5 - 10.5 02/27/2018 [facility] CHEM PANEL Total Protein 7.4 6.4 - 8.4 02/27/2018 [facility] CHEM PANEL Potassium Lvl 4.0 3.5 - 5.1 02/27/2018 [facility] CHEM PANEL Sodium Lvl 138 135 - 145 02/27/2018 [facility] CHEM PANEL Albumin Lvl 3.5 3.5 - 5.0 02/27/2018 [facility] CHEM PANEL Chloride Lvl 106 95 - 109 02/27/2018 [facility] CHEM PANEL Lipase Lvl 96 73 - 393 02/27/2018 [facility] ENDOCRINOLOGY S Preg Negative *NA* (02/27/18 4:58 AM) Negative 02/27/2018 [facility] HEMATOLOGY MCH 30.4 27.0 - 31.0 02/27/2018 [facility] HEMATOLOGY MCHC 33.6 32.0 - 36.0 02/27/2018 [facility] HEMATOLOGY RDW 13.6 11.5 - 14.5 02/27/2018 [facility] HEMATOLOGY Platelet 259 133 - 450 02/27/2018 [facility] HEMATOLOGY MPV 10.3 7.4 - 10.4 02/27/2018 [facility] HEMATOLOGY WBC 10.7 3.7 - 10.4 02/27/2018 [facility] HEMATOLOGY RBC 4.34 4.20 - 5.40 02/27/2018 [facility] HEMATOLOGY Hgb 13.2 12.0 - 16.0 02/27/2018 [facility] HEMATOLOGY Hct 39.2 36.0 - 48.0 02/27/2018 [facility] HEMATOLOGY MCV 90.3 80.0 - 98.0 02/27/2018 [facility] HEMATOLOGY Eosinophils # 0.1 0.0 - 0.5 02/27/2018 [facility] HEMATOLOGY Monocytes # 0.5 0.0 - 0.8 02/27/2018 [facility] HEMATOLOGY Lymphocytes 14.6 20.0 - 40.0 02/27/2018 [facility] HEMATOLOGY Eosinophils 0.9 0.0 - 4.0 02/27/2018 [facility] HEMATOLOGY Monocytes 4.7 2.0 - 12.0 02/27/2018 [facility] HEMATOLOGY Neutrophils # 8.5 1.5 - 8.1 02/27/2018 [facility] HEMATOLOGY Basophils 0.4 0.0 - 1.0 02/27/2018 [facility] HEMATOLOGY Lymphocytes # 1.6 1.0 - 5.5 02/27/2018 [facility] HEMATOLOGY Segs 79.4 45.0 - 75.0 02/27/2018 [facility] URINE AND STOOL UA Sq Epi Occasional /LPF Few /LPF 02/27/2018 [facility] URINE AND STOOL UA Bacteria Occasional /HPF None Seen /HPF 02/27/2018 [facility] URINE AND STOOL UA RBC 2 0 - 2 02/27/2018 [facility] URINE AND STOOL UA WBC <1 0 - 5 02/27/2018 [facility] URINE AND STOOL UA Protein Negative (02/27/18 4:58 AM) Negative 02/27/2018 [facility] URINE AND STOOL UA pH 7.0 5.0 - 8.0 02/27/2018 [facility] URINE AND STOOL UA Spec Grav 1.014 <=1.030 02/27/2018 [facility] URINE AND STOOL UA Turbidity Clear (02/27/18 4:58 AM) Clear 02/27/2018 [facility] URINE AND STOOL UA Color Ltyellow 02/27/2018 [facility] URINE AND STOOL UA Leuk Est Negative (02/27/18 4:58 AM) Negative 02/27/2018 [facility] URINE AND STOOL UA Nitrite Negative (02/27/18 4:58 AM) Negative 02/27/2018 [facility] URINE AND STOOL UA Urobilinogen <=1.0 mg/dL 0.1 - 1.0 02/27/2018 [facility] URINE AND STOOL UA Blood Negative (02/27/18 4:58 AM) Negative 02/27/2018 [facility] URINE AND STOOL UA Bili Negative *NA* (02/27/18 4:58 AM) Negative 02/27/2018 [facility] URINE AND STOOL UA Glucose Negative *NA* (02/27/18 4:58 AM) Negative 02/27/2018 [facility] URINE AND STOOL UA Ketones Negative *NA* (02/27/18 4:58 AM) Negative 02/27/2018 [facility] CHEM PANEL Uric Acid 6.0 2.5 - 7.0 07/28/2014 [facility] CHEM PANEL Phosphorus 3.7 2.5 - 4.5 07/28/2014 [facility] CHEM PANEL Magnesium Lvl 1.8 1.8 - 2.4 07/28/2014 [facility] CHEM PANEL eGFR 61 07/28/2014 <sup>1</sup>Result Comment: The eGFR is calculated using the CKD-EPI formula. In most young, healthy individuals the eGFR will be >90 mL/min/1.73m2. The eGFR declines with age. An eGFR of 60-89 may be normal in some populations, particularly the elderly, for whom the CKD-EPI formula has not been extensively validated. Use of the eGFR is not recommended in the following populations:& lt;br/>
Individuals with unstable creatinine concentrations, including patients and those with serious co-morbid conditions.

Patients with extremes in muscle mass or diet.

The data above are obtained from the National Kidney Disease Education Program (NKDEP) which additionally recommends that when the eGFR is used in patients with extremes of body mass index for purposes of drug dosing, the eGFR should be multiplied by the estimated BMI. [facility] CHEM PANEL BUN 19 7 - 22 07/28/2014 [facility] CHEM PANEL Potassium Lvl 3.9 3.5 - 5.1 07/28/2014 [facility] CHEM PANEL Creatinine Lvl 1.1 0.5 - 1.4 07/28/2014 [facility] CHEM PANEL Sodium Lvl 140 135 - 145 07/28/2014 [facility] CHEM PANEL Chloride Lvl 104 95 - 109 07/28/2014 [facility] CHEM PANEL Calcium Lvl 9.4 8.5 - 10.5 07/28/2014 [facility] CHEM PANEL CO2 26 24 - 32 07/28/2014 [facility] CHEM PANEL Glucose Lvl 98 70 - 99 07/28/2014 <sup>2</sup>Interpretive Data: Adult reference range values reflect the clinical guidelines
of the [place] [employer]. [facility] CHEM PANEL AGAP 13.9 10.0 - 20.0 07/28/2014 [facility] HEMATOLOGY Eosinophils 2.1 0.0 - 4.0 07/28/2014 [facility] HEMATOLOGY Monocytes 6.0 2.0 - 12.0 07/28/2014 [facility] HEMATOLOGY Segs-Bands # 6.7 1.5 - 8.1 07/28/2014 [facility] HEMATOLOGY Basophils 0.5 0.0 - 1.0 07/28/2014 [facility] HEMATOLOGY Eosinophils # 0.2 0.0 - 0.5 07/28/2014 [facility] HEMATOLOGY Monocytes # 0.5 0.0 - 0.8 07/28/2014 [facility] Lymphocytes # 1.7 1.0 - 5.5 07/28/2014 [facility] Lymphocytes 18.0 20.0 - 40.0 07/28/2014 [facility] HEMATOLOGY Segs 73.4 45.0 - 75.0 07/28/2014 [facility] Platelet 306 133 - 450 07/28/2014 [facility] Hgb 12.2 12.0 - 16.0 07/28/2014 [facility] Hct 34.3 36.0 - 48.0 07/28/2014 [facility] RBC 3.87 4.20 - 5.40 07/28/2014 [facility] MCHC 35.5 32.0 - 36.0 07/28/2014 [facility] MPV 8.7 7.4 - 10.4 07/28/2014 [facility] HEMATOLOGY RDW 13.4 11.5 - 14.5 07/28/2014 [facility] HEMATOLOGY WBC 9.2 3.7 - 10.4 07/28/2014 [facility] HEMATOLOGY MCH 31.5 27.0 - 31.0 07/28/2014 [facility] HEMATOLOGY MCV 88.7 80.0 - 98.0 07/28/2014 [facility] URINE AND STOOL UA Urobilinogen <=1.0 mg/dL 0.1 - 1.0 07/28/2014 [facility] URINE AND STOOL UA Mucus Moderate /LPF None Seen /LPF 07/28/2014 [facility] URINE AND STOOL UA RBC 2 0 - 2 07/28/2014 [facility] URINE AND STOOL UA Sperm Occasional /HPF None Seen /HPF 07/28/2014 [facility] URINE AND STOOL UA Sq Epi Many /LPF Few /LPF 07/28/2014 [facility] URINE AND STOOL UA WBC 3 0 - 5 07/28/2014 [facility] URINE AND STOOL UA Protein 30 mg/dL Negative mg/dL 07/28/2014 [facility] URINE AND STOOL UA pH 5.0 5.0 - 8.0 07/28/2014 [facility] URINE AND STOOL UA Leuk Est Negative (07/28/14 4:45 PM) Negative 07/28/2014 [facility] URINE AND STOOL UA Blood Negative (07/28/14 4:45 PM) Negative 07/28/2014 [facility] URINE AND STOOL UA Nitrite Negative (07/28/14 4:45 PM) Negative 07/28/2014 [facility] URINE AND STOOL UA Spec Grav 1.023 <=1.030 07/28/2014 [facility] URINE AND STOOL UA Bili Negative *NA* (07/28/14 4:45 PM) Negative 07/28/2014 [facility] URINE AND STOOL UA Ketones Trace mg/dL Negative mg/dL 07/28/2014 [facility] URINE AND STOOL UA Glucose Negative mg/dL Negative mg/dL 07/28/2014 [facility] URINE AND STOOL UA Turbidity Slight *ABN* (07/28/14 4:45 PM) Clear 07/28/2014 [facility] URINE AND STOOL UA Color Yellow *NA* (07/28/14 4:45 PM) Yellow 07/28/2014 [facility] CHEM PANEL Uric Acid 4.2 2.5 - 7.0 06/06/2014 [facility] CHEM PANEL Phosphorus 3.5 2.5 - 4.5 06/06/2014 [facility] CHEM PANEL Albumin Lvl 3.7 3.5 - 5.0 06/06/2014 [facility] CHEM PANEL eGFR 55 06/06/2014 <sup>1</sup>Result Comment: The eGFR is calculated using the CKD-EPI formula. In most young, healthy individuals the eGFR will be >90 mL/min/1.73m2. The eGFR declines with age. An eGFR of 60-89 may be normal in some populations, particularly the elderly, for whom the CKD-EPI formula has not been extensively validated. Use of the eGFR is not recommended in the following populations:& lt;br/>
Individuals with unstable creatinine concentrations, including patients and those with serious co-morbid conditions.

Patients with extremes in muscle mass or diet.

The data above are obtained from the National Kidney Disease Education Program (NKDEP) which additionally recommends that when the eGFR is used in patients with extremes of body mass index for purposes of drug dosing, the eGFR should be multiplied by the estimated BMI. [facility] CHEM PANEL CO2 27 24 - 32 06/06/2014 [facility] CHEM PANEL Creatinine Lvl 1.2 0.5 - 1.4 06/06/2014 [facility] CHEM PANEL Calcium Lvl 8.9 8.5 - 10.5 06/06/2014 [facility] CHEM PANEL Glucose Lvl 90 70 - 99 06/06/2014 <sup>3</sup>Interpretive Data: Adult reference range values reflect the clinical guidelines
of the [place] [employer]. [facility] CHEM PANEL BUN 18 7 - 22 06/06/2014 [facility] CHEM PANEL Chloride Lvl 105 95 - 109 06/06/2014 [facility] CHEM PANEL Potassium Lvl 4.0 3.5 - 5.1 06/06/2014 [facility] CHEM PANEL Sodium Lvl 139 135 - 145 06/06/2014 [facility] CHEM PANEL AGAP 11.0 10.0 - 20.0 06/06/2014 [facility] CHEM PANEL Magnesium Lvl 1.7 1.8 - 2.4 06/06/2014 [facility] HEMATOLOGY Eosinophils # 0.1 0.0 - 0.5 06/06/2014 [facility] HEMATOLOGY Monocytes # 0.5 0.0 - 0.8 06/06/2014 [facility] HEMATOLOGY Lymphocytes # 1.0 1.0 - 5.5 06/06/2014 [facility] HEMATOLOGY Segs-Bands # 8.1 1.5 - 8.1 06/06/2014 [facility] HEMATOLOGY Basophils 0.3 0.0 - 1.0 06/06/2014 [facility] HEMATOLOGY Segs 82.4 45.0 - 75.0 06/06/2014 [facility] HEMATOLOGY Lymphocytes 10.6 20.0 - 40.0 06/06/2014 [facility] HEMATOLOGY Eosinophils 1.2 0.0 - 4.0 06/06/2014 [facility] HEMATOLOGY Monocytes 5.5 2.0 - 12.0 06/06/2014 [facility] HEMATOLOGY MCH 29.8 27.0 - 31.0 06/06/2014 [facility] HEMATOLOGY RDW 16.2 11.5 - 14.5 06/06/2014 [facility] MCHC 34.5 32.0 - 36.0 06/06/2014 [facility] HEMATOLOGY Platelet 267 133 - 450 06/06/2014 [facility] MPV 9.2 7.4 - 10.4 06/06/2014 [facility] WBC 9.8 3.7 - 10.4 06/06/2014 [facility] HEMATOLOGY RBC 3.62 4.20 - 5.40 06/06/2014 [facility] HEMATOLOGY Hgb 10.8 12.0 - 16.0 06/06/2014 [facility] HEMATOLOGY Hct 31.2 36.0 - 48.0 06/06/2014 [facility] HEMATOLOGY MCV 86.3 80.0 - 98.0 06/06/2014 [facility] URINE AND STOOL UA Urobilinogen <=1.0 mg/dL 0.1 - 1.0 06/06/2014 [facility] URINE AND STOOL UA Color Ltyellow 06/06/2014 [facility] URINE AND STOOL UA Protein Negative mg/dL Negative mg/dL 06/06/2014 [facility] URINE AND STOOL UA pH 6.0 5.0 - 8.0 06/06/2014 [facility] URINE AND STOOL UA Ketones Negative mg/dL Negative mg/dL 06/06/2014 [facility] URINE AND STOOL UA Sq Epi Occasional /LPF Few /LPF 06/06/2014 [facility] URINE AND STOOL UA Glucose Negative mg/dL Negative mg/dL 06/06/2014 [facility] URINE AND STOOL UA WBC 1 0 - 5 06/06/2014 [facility] URINE AND STOOL UA Leuk Est Negative (06/06/14 10:30 AM) Negative 06/06/2014 [facility] URINE AND STOOL UA Nitrite Negative (06/06/14 10:30 AM) Negative 06/06/2014 [facility] URINE AND STOOL UA RBC 1 0 - 2 06/06/2014 [facility] URINE AND STOOL UA Blood Negative (06/06/14 10:30 AM) Negative 06/06/2014 [facility] URINE AND STOOL UA Bili Negative *NA* (06/06/14 10:30 AM) Negative 06/06/2014 [facility] URINE AND STOOL UA Turbidity Clear (06/06/14 10:30 AM) Clear 06/06/2014 [facility] URINE AND STOOL UA Spec Grav 1.011 <=1.030 06/06/2014 [facility] URINE CHEM U Protein 11.2 06/06/2014 <sup>7</sup>Interpretive Data: No established reference ranges. [facility] URINE CHEM U Creatinine 72.2 06/06/2014 <sup>5</sup>Interpretive Data: No established reference ranges. [facility] URINE CHEM U Prot/Creat 0.2 06/06/2014 [facility] URINE CHEM U Prot/Creat 0.2 06/06/2014 [facility] CHEM PANEL Albumin Lvl 3.7 3.5 - 5.0 05/11/2014 [facility] CHEM PANEL Magnesium Lvl 1.8 1.8 - 2.4 05/11/2014 [facility] CHEM PANEL Phosphorus 3.9 2.5 - 4.5 05/11/2014 [facility] CHEM PANEL Uric Acid 5.3 2.5 - 7.0 05/11/2014 [facility] ELECTROLYTES CO2 30 24 - 32 05/11/2014 [facility] ELECTROLYTES BUN 29 7 - 22 05/11/2014 [facility] ELECTROLYTES Glucose Lvl 115 70 - 99 05/11/2014 <sup>4</sup>Interpretive Data: Adult reference range values reflect the clinical guidelines
of the [place] [employer]. [facility] ELECTROLYTES eGFR 23 05/11/2014 <sup>2</sup>Result Comment: The eGFR is calculated using the CKD-EPI formula. In most young, healthy individuals the eGFR will be >90 mL/min/1.73m2. The eGFR declines with age. An eGFR of 60-89 may be normal in some populations, particularly the elderly, for whom the CKD-EPI formula has not been extensively validated. Use of the eGFR is not recommended in the following populations:& lt;br/>
Individuals with unstable creatinine concentrations, including patients and those with serious co-morbid conditions.

Patients with extremes in muscle mass or diet.

The data above are obtained from the National Kidney Disease Education Program (NKDEP) which additionally recommends that when the eGFR is used in patients with extremes of body mass index for purposes of drug dosing, the eGFR should be multiplied by the estimated BMI. [facility] ELECTROLYTES Chloride Lvl 105 95 - 109 05/11/2014 [facility] ELECTROLYTES Calcium Lvl 10.1 8.5 - 10.5 05/11/2014 [facility] ELECTROLYTES Sodium Lvl 142 135 - 145 05/11/2014 [facility] ELECTROLYTES Potassium Lvl 3.7 3.5 - 5.1 05/11/2014 [facility] ELECTROLYTES Creatinine Lvl 2.5 0.5 - 1.4 05/11/2014 [facility] ELECTROLYTES AGAP 10.7 10.0 - 20.0 05/11/2014 [facility] Platelet 364 133 - 450 05/11/2014 [facility] MPV 8.4 7.4 - 10.4 05/11/2014 [facility] RDW 14.5 11.5 - 14.5 05/11/2014 [facility] MCHC 33.5 32.0 - 36.0 05/11/2014 [facility] MCV 85.9 80.0 - 98.0 05/11/2014 [facility] MCH 28.8 27.0 - 31.0 05/11/2014 [facility] WBC 9.5 3.7 - 10.4 05/11/2014 [facility] RBC 3.88 4.20 - 5.40 05/11/2014 [facility] Hgb 11.2 12.0 - 16.0 05/11/2014 [facility] Hct 33.3 36.0 - 48.0 05/11/2014 [facility] Basophils # 0.1 0.0 - 0.2 05/11/2014 [facility] HEMATOLOGY Eosinophils # 0.2 0.0 - 0.5 05/11/2014 [facility] Monocytes # 0.7 0.0 - 0.8 05/11/2014 [facility] Monocytes 7.5 2.0 - 12.0 05/11/2014 [facility] Eosinophils 1.8 0.0 - 4.0 05/11/2014 [facility] HEMATOLOGY Lymphocytes 13.7 20.0 - 40.0 05/11/2014 [facility] HEMATOLOGY Basophils 0.6 0.0 - 1.0 05/11/2014 [facility] HEMATOLOGY Segs-Bands # 7.3 1.5 - 8.1 05/11/2014 [facility] HEMATOLOGY Lymphocytes # 1.3 1.0 - 5.5 05/11/2014 [facility] HEMATOLOGY Segs 76.4 45.0 - 75.0 05/11/2014 [facility] URINE AND STOOL UA Urobilinogen <=1.0 mg/dL 0.1 - 1.0 05/11/2014 [facility] URINE AND STOOL UA Color Ltyellow 05/11/2014 [facility] URINE AND STOOL UA WBC 4 0 - 5 05/11/2014 [facility] URINE AND STOOL UA Bacteria Occasional /HPF None Seen /HPF 05/11/2014 [facility] URINE AND STOOL UA RBC 3 0 - 2 05/11/2014 [facility] URINE AND STOOL UA Sq Epi Few /LPF Few /LPF 05/11/2014 [facility] URINE AND STOOL UA Leuk Est Negative (05/11/14 11:50 AM) Negative 05/11/2014 [facility] URINE AND STOOL UA Nitrite Negative (05/11/14 11:50 AM) Negative 05/11/2014 [facility] URINE AND STOOL UA Turbidity Clear (05/11/14 11:50 AM) Clear 05/11/2014 [facility] URINE AND STOOL UA Bili Negative *NA* (05/11/14 11:50 AM) Negative 05/11/2014 [facility] URINE AND STOOL UA Glucose Negative mg/dL Negative mg/dL 05/11/2014 [facility] URINE AND STOOL UA Blood Negative (05/11/14 11:50 AM) Negative 05/11/2014 [facility] URINE AND STOOL UA Ketones Negative mg/dL Negative mg/dL 05/11/2014 [facility] URINE AND STOOL UA pH 5.0 5.0 - 8.0 05/11/2014 [facility] URINE AND STOOL UA Spec Grav 1.012 <=1.030 05/11/2014 [facility] URINE AND STOOL UA Protein Negative mg/dL Negative mg/dL 05/11/2014 [facility] URINE CHEM U Prot/Creat 0.2 05/11/2014 [facility] URINE CHEM U Prot/Creat 0.2 05/11/2014 [facility] URINE CHEM U Creatinine 128.1 05/11/2014 <sup>6</sup>Interpretive Data: No established reference ranges. [facility] URINE CHEM U Protein 28.3 05/11/2014 <sup>8</sup>Interpretive Data: No established reference ranges. [facility] ELECTROLYTES Chloride Lvl 103 95 - 109 05/08/2014 [facility] ELECTROLYTES Potassium Lvl 4.3 3.5 - 5.1 05/08/2014 [facility] ELECTROLYTES Sodium Lvl 141 135 - 145 05/08/2014 [facility] ELECTROLYTES CO2 27 24 - 32 05/08/2014 [facility] ELECTROLYTES Calcium Lvl 9.3 8.5 - 10.5 05/08/2014 [facility] ELECTROLYTES AGAP 15.3 10.0 - 20.0 05/08/2014 [facility] ELECTROLYTES Creatinine Lvl 3.6 0.5 - 1.4 05/08/2014 [facility] ELECTROLYTES BUN 39 7 - 22 05/08/2014 [facility] ELECTROLYTES eGFR 14 05/08/2014 <sup>1</sup>Result Comment: The eGFR is calculated using the CKD-EPI formula. In most young, healthy individuals the eGFR will be >90 mL/min/1.73m2. The eGFR declines with age. An eGFR of 60-89 may be normal in some populations, particularly the elderly, for whom the CKD-EPI formula has not been extensively validated. Use of the eGFR is not recommended in the following populations:& lt;br/>
Individuals with unstable creatinine concentrations, including patients and those with serious co-morbid conditions.

Patients with extremes in muscle mass or diet.

The data above are obtained from the National Kidney Disease Education Program (NKDEP) which additionally recommends that when the eGFR is used in patients with extremes of body mass index for purposes of drug dosing, the eGFR should be multiplied by the estimated BMI. [facility] ELECTROLYTES Glucose Lvl 97 70 - 99 05/08/2014 <sup>2</sup>Interpretive Data: Adult reference range values reflect the clinical guidelines
of the [place] [employer]. [facility] CHEM PANEL eGFR 8 05/04/2014 <sup>1</sup>Result Comment: The eGFR is calculated using the CKD-EPI formula. In most young, healthy individuals the eGFR will be >90 mL/min/1.73m2. The eGFR declines with age. An eGFR of 60-89 may be normal in some populations, particularly the elderly, for whom the CKD-EPI formula has not been extensively validated. Use of the eGFR is not recommended in the following populations:& lt;br/>
Individuals with unstable creatinine concentrations, including patients and those with serious co-morbid conditions.

Patients with extremes in muscle mass or diet.

The data above are obtained from the National Kidney Disease Education Program (NKDEP) which additionally recommends that when the eGFR is used in patients with extremes of body mass index for purposes of drug dosing, the eGFR should be multiplied by the estimated BMI. [facility] CHEM PANEL Calcium Lvl 8.8 8.5 - 10.5 05/04/2014 [facility] CHEM PANEL AGAP 11.4 10.0 - 20.0 05/04/2014 [facility] CHEM PANEL CO2 29 24 - 32 05/04/2014 [facility] CHEM PANEL Chloride Lvl 104 95 - 109 05/04/2014 [facility] CHEM PANEL Sodium Lvl 141 135 - 145 05/04/2014 [facility] CHEM PANEL Potassium Lvl 3.4 3.5 - 5.1 05/04/2014 [facility] CHEM PANEL Glucose Lvl 124 70 - 99 05/04/2014 <sup>2</sup>Interpretive Data: Adult reference range values reflect the clinical guidelines
of the [place] [employer]. [facility] CHEM PANEL Creatinine Lvl 6.0 0.5 - 1.4 05/04/2014 [facility] CHEM PANEL BUN 42 7 - 22 05/04/2014 [facility] ELECTROLYTES AGAP 15.7 10.0 - 20.0 05/03/2014 [facility] ELECTROLYTES eGFR 6 05/03/2014 <sup>1</sup>Result Comment: The eGFR is calculated using the CKD-EPI formula. In most young, healthy individuals the eGFR will be >90 mL/min/1.73m2. The eGFR declines with age. An eGFR of 60-89 may be normal in some populations, particularly the elderly, for whom the CKD-EPI formula has not been extensively validated. Use of the eGFR is not recommended in the following populations:& lt;br/>
Individuals with unstable creatinine concentrations, including patients and those with serious co-morbid conditions.

Patients with extremes in muscle mass or diet.

The data above are obtained from the National Kidney Disease Education Program (NKDEP) which additionally recommends that when the eGFR is used in patients with extremes of body mass index for purposes of drug dosing, the eGFR should be multiplied by the estimated BMI. [facility] ELECTROLYTES BUN 44 7 - 22 05/03/2014 [facility] ELECTROLYTES Creatinine Lvl 7.0 0.5 - 1.4 05/03/2014 [facility] ELECTROLYTES Calcium Lvl 8.8 8.5 - 10.5 05/03/2014 [facility] ELECTROLYTES CO2 25 24 - 32 05/03/2014 [facility] ELECTROLYTES Glucose Lvl 99 70 - 99 05/03/2014 <sup>4</sup>Interpretive Data: Adult reference range values reflect the clinical guidelines
of the [place] [employer]. [facility] ELECTROLYTES Potassium Lvl 3.7 3.5 - 5.1 05/03/2014 [facility] ELECTROLYTES Sodium Lvl 144 135 - 145 05/03/2014 [facility] ELECTROLYTES Chloride Lvl 107 95 - 109 05/03/2014 [facility] ELECTROLYTES AGAP 13.9 10.0 - 20.0 05/02/2014 [facility] ELECTROLYTES Potassium Lvl 3.9 3.5 - 5.1 05/02/2014 [facility] ELECTROLYTES Chloride Lvl 112 95 - 109 05/02/2014 [facility] ELECTROLYTES Sodium Lvl 144 135 - 145 05/02/2014 [facility] ELECTROLYTES eGFR 6 05/02/2014 <sup>2</sup>Result Comment: The eGFR is calculated using the CKD-EPI formula. In most young, healthy individuals the eGFR will be >90 mL/min/1.73m2. The eGFR declines with age. An eGFR of 60-89 may be normal in some populations, particularly the elderly, for whom the CKD-EPI formula has not been extensively validated. Use of the eGFR is not recommended in the following populations:& lt;br/>
Individuals with unstable creatinine concentrations, including patients and those with serious co-morbid conditions.

Patients with extremes in muscle mass or diet.

The data above are obtained from the National Kidney Disease Education Program (NKDEP) which additionally recommends that when the eGFR is used in patients with extremes of body mass index for purposes of drug dosing, the eGFR should be multiplied by the estimated BMI. [facility] ELECTROLYTES Creatinine Lvl 7.6 0.5 - 1.4 05/02/2014 [facility] ELECTROLYTES Calcium Lvl 8.8 8.5 - 10.5 05/02/2014 [facility] ELECTROLYTES Glucose Lvl 98 70 - 99 05/02/2014 <sup>5</sup>Interpretive Data: Adult reference range values reflect the clinical guidelines
of the [place] [employer]. [facility] ELECTROLYTES CO2 22 24 - 32 05/02/2014 [facility] ELECTROLYTES BUN 46 7 - 22 05/02/2014 [facility] HEMATOLOGY MPV 8.3 7.4 - 10.4 05/02/2014 [facility] HEMATOLOGY RDW 14.9 11.5 - 14.5 05/02/2014 [facility] HEMATOLOGY Platelet 274 133 - 450 05/02/2014 [facility] MCHC 35.0 32.0 - 36.0 05/02/2014 [facility] HEMATOLOGY MCV 85.4 80.0 - 98.0 05/02/2014 [facility] MCH 29.9 27.0 - 31.0 05/02/2014 [facility] Hgb 8.7 12.0 - 16.0 05/02/2014 [facility] HEMATOLOGY Hct 24.8 36.0 - 48.0 05/02/2014 [facility] HEMATOLOGY RBC 2.90 4.20 - 5.40 05/02/2014 [facility] HEMATOLOGY WBC 7.1 3.7 - 10.4 05/02/2014 [facility] HEMATOLOGY Eosinophils # 0.2 0.0 - 0.5 05/02/2014 [facility] HEMATOLOGY Segs-Bands # 5.1 1.5 - 8.1 05/02/2014 [facility] HEMATOLOGY Lymphocytes # 1.0 1.0 - 5.5 05/02/2014 [facility] HEMATOLOGY Eosinophils 2.6 0.0 - 4.0 05/02/2014 [facility] HEMATOLOGY Basophils 0.4 0.0 - 1.0 05/02/2014 [facility] HEMATOLOGY Monocytes # 0.8 0.0 - 0.8 05/02/2014 [facility] HEMATOLOGY Monocytes 10.7 2.0 - 12.0 05/02/2014 [facility] HEMATOLOGY Segs 71.9 45.0 - 75.0 05/02/2014 [facility] HEMATOLOGY Lymphocytes 14.4 20.0 - 40.0 05/02/2014 [facility] URINE CHEM U Eos 0-2 *ABN* (05/01/14 10:50 PM) None Seen 05/02/2014 [facility] ELECTROLYTES AGAP 14.0 10.0 - 20.0 05/01/2014 [facility] ELECTROLYTES BUN 42 7 - 22 05/01/2014 [facility] ELECTROLYTES eGFR 6 05/01/2014 <sup>3</sup>Result Comment: The eGFR is calculated using the CKD-EPI formula. In most young, healthy individuals the eGFR will be >90 mL/min/1.73m2. The eGFR declines with age. An eGFR of 60-89 may be normal in some populations, particularly the elderly, for whom the CKD-EPI formula has not been extensively validated. Use of the eGFR is not recommended in the following populations:& lt;br/>
Individuals with unstable creatinine concentrations, including patients and those with serious co-morbid conditions.

Patients with extremes in muscle mass or diet.

The data above are obtained from the National Kid[employer] Disease Education Program (NKDEP) which additionally recommends that when the eGFR is used in patients with extremes of body mass index for purposes of drug dosing, the eGFR should be multiplied by the estimated BMI. [facility] ELECTROLYTES Creatinine Lvl 8.0 0.5 - 1.4 05/01/2014 [facility] ELECTROLYTES Sodium Lvl 142 135 - 145 05/01/2014 [facility] ELECTROLYTES Potassium Lvl 4.0 3.5 - 5.1 05/01/2014 [facility] ELECTROLYTES Chloride Lvl 108 95 - 109 05/01/2014 [facility] ELECTROLYTES Glucose Lvl 92 70 - 99 05/01/2014 <sup>6</sup>Interpretive Data: Adult reference range values reflect the clinical guidelines
of the [place] [employer]. [facility] ELECTROLYTES Calcium Lvl 8.6 8.5 - 10.5 05/01/2014 [facility] ELECTROLYTES CO2 24 24 - 32 05/01/2014 [facility] HEMATOLOGY MCHC 34.1 32.0 - 36.0 05/01/2014 [facility] HEMATOLOGY RDW 15.1 11.5 - 14.5 05/01/2014 [facility] Platelet 265 133 - 450 05/01/2014 [facility] MCH 29.4 27.0 - 31.0 05/01/2014 [facility] MPV 8.4 7.4 - 10.4 05/01/2014 [facility] HEMATOLOGY MCV 86.2 80.0 - 98.0 05/01/2014 [facility] HEMATOLOGY RBC 2.98 4.20 - 5.40 05/01/2014 [facility] HEMATOLOGY Hgb 8.8 12.0 - 16.0 05/01/2014 [facility] HEMATOLOGY Hct 25.7 36.0 - 48.0 05/01/2014 [facility] HEMATOLOGY WBC 6.8 3.7 - 10.4 05/01/2014 [facility] HEMATOLOGY Eosinophils # 0.3 0.0 - 0.5 05/01/2014 [facility] HEMATOLOGY Lymphocytes 17.9 20.0 - 40.0 05/01/2014 [facility] HEMATOLOGY Segs 65.7 45.0 - 75.0 05/01/2014 [facility] HEMATOLOGY Eosinophils 4.3 0.0 - 4.0 05/01/2014 [facility] HEMATOLOGY Basophils 0.4 0.0 - 1.0 05/01/2014 [facility] HEMATOLOGY Segs-Bands # 4.5 1.5 - 8.1 05/01/2014 [facility] HEMATOLOGY Lymphocytes # 1.2 1.0 - 5.5 05/01/2014 [facility] HEMATOLOGY Monocytes # 0.8 0.0 - 0.8 05/01/2014 [facility] HEMATOLOGY Monocytes 11.7 2.0 - 12.0 05/01/2014 [facility] IMMUNOLOGY Hep Bs Ag Negative *NA* (05/01/14 4:03 AM) Negative 05/01/2014 [facility] CHEM PANEL Phosphorus 4.7 2.5 - 4.5 04/30/2014 [facility] CHEM PANEL Magnesium Lvl 1.8 1.8 - 2.4 04/30/2014 [facility] CHEM PANEL Albumin Lvl 2.3 3.5 - 5.0 04/30/2014 [facility] CHEM PANEL AST 16 0 - 37 04/30/2014 [facility] CHEM PANEL Alk Phos 107 39 - 136 04/30/2014 [facility] CHEM PANEL ALT 15 0 - 65 04/30/2014 [facility] CHEM PANEL Bili Direct 0.1 0.0 - 0.3 04/30/2014 [facility] CHEM PANEL Globulin 3.7 2.0 - 4.0 04/30/2014 [facility] CHEM PANEL Bili Total 0.4 0.2 - 1.3 04/30/2014 [facility] CHEM PANEL Bili Indirect 0.3 0.0 - 1.0 04/30/2014 [facility] CHEM PANEL A/G Ratio 0.6 0.7 - 1.6 04/30/2014 [facility] CHEM PANEL Total Protein 6.0 6.4 - 8.4 04/30/2014 [facility] HEMATOLOGY Lymphocytes # 0.8 1.0 - 5.5 04/29/2014 [facility] HEMATOLOGY Eosinophils # 0.2 0.0 - 0.5 04/29/2014 [facility] HEMATOLOGY Monocytes # 0.5 0.0 - 0.8 04/29/2014 [facility] HEMATOLOGY Segs 71.1 45.0 - 75.0 04/29/2014 [facility] HEMATOLOGY Lymphocytes 14.8 20.0 - 40.0 04/29/2014 [facility] HEMATOLOGY Monocytes 10.0 2.0 - 12.0 04/29/2014 [facility] HEMATOLOGY Eosinophils 3.9 0.0 - 4.0 04/29/2014 [facility] HEMATOLOGY Basophils 0.2 0.0 - 1.0 04/29/2014 [facility] HEMATOLOGY Segs-Bands # 3.7 1.5 - 8.1 04/29/2014 [facility] HEMATOLOGY Platelet 217 133 - 450 04/29/2014 [facility] MCH 29.5 27.0 - 31.0 04/29/2014 [facility] HEMATOLOGY MCHC 33.7 32.0 - 36.0 04/29/2014 [facility] HEMATOLOGY RDW 15.2 11.5 - 14.5 04/29/2014 [facility] HEMATOLOGY MCV 87.5 80.0 - 98.0 04/29/2014 [facility] HEMATOLOGY MPV 9.1 7.4 - 10.4 04/29/2014 [facility] HEMATOLOGY WBC 5.2 3.7 - 10.4 04/29/2014 [facility] Hgb 9.5 12.0 - 16.0 04/29/2014 [facility] HEMATOLOGY Hct 28.1 36.0 - 48.0 04/29/2014 [facility] HEMATOLOGY RBC 3.21 4.20 - 5.40 04/29/2014 [facility] URINE AND STOOL UA Urobilinogen <=1.0 mg/dL 0.1 - 1.0 04/28/2014 [facility] URINE AND STOOL UA Color Ltyellow 04/28/2014 [facility] URINE AND STOOL UA RBC 4 0 - 2 04/28/2014 [facility] URINE AND STOOL UA WBC 3 0 - 5 04/28/2014 [facility] URINE AND STOOL UA Leuk Est Negative (04/28/14 1:15 PM) Negative 04/28/2014 [facility] URINE AND STOOL UA Sq Epi Few /LPF Few /LPF 04/28/2014 [facility] URINE AND STOOL UA Blood Small *ABN* (04/28/14 1:15 PM) Negative 04/28/2014 [facility] URINE AND STOOL UA Glucose Negative mg/dL Negative mg/dL 04/28/2014 [facility] URINE AND STOOL UA Bili Negative *NA* (04/28/14 1:15 PM) Negative 04/28/2014 [facility] URINE AND STOOL UA Turbidity Clear (04/28/14 1:15 PM) Clear 04/28/2014 [facility] URINE AND STOOL UA Spec Grav 1.006 <=1.030 04/28/2014 [facility] URINE AND STOOL UA Protein Negative mg/dL Negative mg/dL 04/28/2014 [facility] URINE AND STOOL UA Ketones Negative mg/dL Negative mg/dL 04/28/2014 [facility] URINE AND STOOL UA pH 5.0 5.0 - 8.0 04/28/2014 [facility] URINE AND STOOL UA Nitrite Negative (04/28/14 1:15 PM) Negative 04/28/2014 [facility] URINE CHEM U Prot/Creat 0.4 04/28/2014 [facility] URINE CHEM U Creatinine 77.1 04/28/2014 <sup>8</sup>Interpretive Data: No established reference ranges. [facility] URINE CHEM U Protein 30.9 04/28/2014 <sup>9</sup>Interpretive Data: No established reference ranges. [facility] URINE CHEM U Sodium 56 04/28/2014 <sup>10</sup>Interpretive Data: No established reference ranges. [facility] URINE CHEM U Eos None Seen (04/28/14 1:15 PM) None Seen 04/28/2014 [facility] CHEM PANEL Alk Phos 118 39 - 136 04/28/2014 [facility] CHEM PANEL Total Protein 6.7 6.4 - 8.4 04/28/2014 [facility] CHEM PANEL A/G Ratio 0.6 0.7 - 1.6 04/28/2014 [facility] CHEM PANEL Globulin 4.2 2.0 - 4.0 04/28/2014 [facility] CHEM PANEL AST 17 0 - 37 04/28/2014 [facility] CHEM PANEL Albumin Lvl 2.5 3.5 - 5.0 04/28/2014 [facility] CHEM PANEL ALT 16 0 - 65 04/28/2014 [facility] CHEM PANEL Bili Total 0.5 0.2 - 1.3 04/28/2014 [facility] CHEM PANEL B/C Ratio 4 6 - 25 04/28/2014 [facility] TOXICOLOGY Vanco Tr TND 0900 04/26/2014 [facility] TOXICOLOGY Vanco Tr 14.2 04/26/2014 <sup>7</sup>Interpretive Data: Therapeutic Range:
Trough: 10 - 20 ug/mL
Peak: 20 - 40 ug/mL
Potential Toxicity: >80 ug/mL [facility] ENDOCRINOLOGY S Preg Negative *NA* (04/24/14 8:58 AM) Negative 04/24/2014 [facility] URINE CHEM U Preg Negative (04/21/14 12:20 PM) Negative 04/21/2014 [facility] ELECTROLYTES AGAP 13.8 10.0 - 20.0 03/09/2014 [facility] ELECTROLYTES Chloride Lvl 102 95 - 109 03/09/2014 [facility] ELECTROLYTES Potassium Lvl 3.8 3.5 - 5.1 03/09/2014 [facility] ELECTROLYTES Sodium Lvl 138 135 - 145 03/09/2014 [facility] ELECTROLYTES Calcium Lvl 8.4 8.5 - 10.5 03/09/2014 [facility] ELECTROLYTES CO2 26 24 - 32 03/09/2014 [facility] ELECTROLYTES BUN 4 7 - 22 03/09/2014 [facility] ELECTROLYTES Creatinine Lvl 0.7 0.5 - 1.4 03/09/2014 [facility] ELECTROLYTES Glucose Lvl 133 70 - 99 03/09/2014 <sup>4</sup>Interpretive Data: Adult reference range values reflect the clinical guidelines
of the [place] [employer]. [facility] ELECTROLYTES eGFR 105 03/09/2014 <sup>1</sup>Result Comment: The eGFR is calculated using the CKD-EPI formula. In most young, healthy individuals the eGFR will be >90 mL/min/1.73m2. The eGFR declines with age. An eGFR of 60-89 may be normal in some populations, particularly the elderly, for whom the CKD-EPI formula has not been extensively validated. Use of the eGFR is not recommended in the following populations:& lt;br/>
Individuals with unstable creatinine concentrations, including patients and those with serious co-morbid conditions.

Patients with extremes in muscle mass or diet.

The data above are obtained from the National Kidney Disease Education Program (NKDEP) which additionally recommends that when the eGFR is used in patients with extremes of body mass index for purposes of drug dosing, the eGFR should be multiplied by the estimated BMI. [facility] HEMATOLOGY RBC 3.26 4.20 - 5.40 03/09/2014 [facility] HEMATOLOGY WBC 8.2 3.7 - 10.4 03/09/2014 [facility] HEMATOLOGY MCH 29.8 27.0 - 31.0 03/09/2014 [facility] HEMATOLOGY Hgb 9.7 12.0 - 16.0 03/09/2014 [facility] HEMATOLOGY Hct 28.3 36.0 - 48.0 03/09/2014 [facility] HEMATOLOGY MCV 86.8 80.0 - 98.0 03/09/2014 [facility] HEMATOLOGY MPV 10.1 7.4 - 10.4 03/09/2014 [facility] HEMATOLOGY Platelet 278 133 - 450 03/09/2014 [facility] MCHC 34.4 32.0 - 36.0 03/09/2014 [facility] HEMATOLOGY RDW 13.9 11.5 - 14.5 03/09/2014 [facility] HEMATOLOGY Segs 82.2 45.0 - 75.0 03/09/2014 [facility] HEMATOLOGY Lymphocytes 10.4 20.0 - 40.0 03/09/2014 [facility] HEMATOLOGY Monocytes 7.0 2.0 - 12.0 03/09/2014 [facility] HEMATOLOGY Eosinophils 0.2 0.0 - 4.0 03/09/2014 [facility] HEMATOLOGY Basophils 0.2 0.0 - 1.0 03/09/2014 [facility] HEMATOLOGY Monocytes # 0.6 0.0 - 0.8 03/09/2014 [facility] HEMATOLOGY Segs-Bands # 6.7 1.5 - 8.1 03/09/2014 [facility] HEMATOLOGY Lymphocytes # 0.8 1.0 - 5.5 03/09/2014 [facility] ANEMIA STUDY Transferrin 186 212 - 360 03/07/2014 [facility] ANEMIA STUDY Vitamin B12 Lvl 753 254 - 1320 03/07/2014 [facility] CHEM PANEL Magnesium Lvl 2.1 1.8 - 2.4 03/07/2014 [facility] ELECTROLYTES AGAP 12.7 10.0 - 20.0 03/07/2014 [facility] ELECTROLYTES Globulin 3.6 2.0 - 4.0 03/07/2014 [facility] ELECTROLYTES B/C Ratio 8 6 - 25 03/07/2014 [facility] ELECTROLYTES A/G Ratio 0.8 0.7 - 1.6 03/07/2014 [facility] ELECTROLYTES Sodium Lvl 138 135 - 145 03/07/2014 [facility] ELECTROLYTES Potassium Lvl 3.7 3.5 - 5.1 03/07/2014 [facility] ELECTROLYTES Chloride Lvl 106 95 - 109 03/07/2014 [facility] ELECTROLYTES eGFR 110 03/07/2014 <sup>2</sup>Result Comment: The eGFR is calculated using the CKD-EPI formula. In most young, healthy individuals the eGFR will be >90 mL/min/1.73m2. The eGFR declines with age. An eGFR of 60-89 may be normal in some populations, particularly the elderly, for whom the CKD-EPI formula has not been extensively validated. Use of the eGFR is not recommended in the following populations:& lt;br/>
Individuals with unstable creatinine concentrations, including patients and those with serious co-morbid conditions.

Patients with extremes in muscle mass or diet.

The data above are obtained from the National Kidney Disease Education Program (NKDEP) which additionally recommends that when the eGFR is used in patients with extremes of body mass index for purposes of drug dosing, the eGFR should be multiplied by the estimated BMI. [facility] ELECTROLYTES Glucose Lvl 93 70 - 99 03/07/2014 <sup>5</sup>Interpretive Data: Adult reference range values reflect the clinical guidelines
of the [place] [employer]. [facility] ELECTROLYTES BUN 5 7 - 22 03/07/2014 [facility] ELECTROLYTES Creatinine Lvl 0.6 0.5 - 1.4 03/07/2014 [facility] ELECTROLYTES CO2 23 24 - 32 03/07/2014 [facility] ELECTROLYTES ALT 27 0 - 65 03/07/2014 [facility] ELECTROLYTES AST 17 0 - 37 03/07/2014 [facility] ELECTROLYTES Alk Phos 97 39 - 136 03/07/2014 [facility] ELECTROLYTES Bili Total 0.5 0.2 - 1.3 03/07/2014 [facility] ELECTROLYTES Calcium Lvl 8.4 8.5 - 10.5 03/07/2014 [facility] ELECTROLYTES Total Protein 6.6 6.4 - 8.4 03/07/2014 [facility] ELECTROLYTES Albumin Lvl 3.0 3.5 - 5.0 03/07/2014 [facility] HEMATOLOGY Monocytes # 0.6 0.0 - 0.8 03/07/2014 [facility] HEMATOLOGY Eosinophils # 0.1 0.0 - 0.5 03/07/2014 [facility] HEMATOLOGY Lymphocytes # 1.2 1.0 - 5.5 03/07/2014 [facility] HEMATOLOGY Basophils 0.3 0.0 - 1.0 03/07/2014 [facility] HEMATOLOGY Eosinophils 1.5 0.0 - 4.0 03/07/2014 [facility] HEMATOLOGY Segs-Bands # 6.0 1.5 - 8.1 03/07/2014 [facility] HEMATOLOGY Lymphocytes 14.8 20.0 - 40.0 03/07/2014 [facility] HEMATOLOGY Monocytes 8.0 2.0 - 12.0 03/07/2014 [facility] Segs 75.4 45.0 - 75.0 03/07/2014 [facility] RDW 13.5 11.5 - 14.5 03/07/2014 [facility] MPV 9.1 7.4 - 10.4 03/07/2014 [facility] Platelet 308 133 - 450 03/07/2014 [facility] Hgb 10.8 12.0 - 16.0 03/07/2014 [facility] RBC 3.64 4.20 - 5.40 03/07/2014 [facility] MCHC 34.1 32.0 - 36.0 03/07/2014 [facility] WBC 7.9 3.7 - 10.4 03/07/2014 [facility] MCH 29.7 27.0 - 31.0 03/07/2014 [facility] Hct 31.7 36.0 - 48.0 03/07/2014 [facility] MCV 87.0 80.0 - 98.0 03/07/2014 [facility] THYROID PANEL T3 Uptake 34 31 - 39 03/07/2014 [facility] THYROID PANEL TSH 0.744 0.360 - 3.740 03/07/2014 [facility] THYROID PANEL T4 12.5 4.7 - 13.3 03/07/2014 [facility] THYROID PANEL FTI 4.2 03/07/2014 [facility] CHEM PANEL Phosphorus 3.1 2.5 - 4.5 03/07/2014 [facility] CHEM PANEL eGFR 105 03/07/2014 <sup>3</sup>Result Comment: The eGFR is calculated using the CKD-EPI formula. In most young, healthy individuals the eGFR will be >90 mL/min/1.73m2. The eGFR declines with age. An eGFR of 60-89 may be normal in some populations, particularly the elderly, for whom the CKD-EPI formula has not been extensively validated. Use of the eGFR is not recommended in the following populations:& lt;br/>
Individuals with unstable creatinine concentrations, including patients and those with serious co-morbid conditions.

Patients with extremes in muscle mass or diet.

The data above are obtained from the National Kidney Disease Education Program (NKDEP) which additionally recommends that when the eGFR is used in patients with extremes of body mass index for purposes of drug dosing, the eGFR should be multiplied by the estimated BMI. [facility] CHEM PANEL Globulin 3.7 2.0 - 4.0 03/07/2014 [facility] CHEM PANEL A/G Ratio 0.8 0.7 - 1.6 03/07/2014 [facility] CHEM PANEL ALT 22 0 - 65 03/07/2014 [facility] CHEM PANEL AST 17 0 - 37 03/07/2014 [facility] CHEM PANEL Alk Phos 96 39 - 136 03/07/2014 [facility] CHEM PANEL Bili Total 0.4 0.2 - 1.3 03/07/2014 [facility] CHEM PANEL Glucose Lvl 111 70 - 99 03/07/2014 <sup>6</sup>Interpretive Data: Adult reference range values reflect the clinical guidelines
of the [place] [employer]. [facility] CHEM PANEL BUN 7 7 - 22 03/07/2014 [facility] CHEM PANEL AGAP 12.4 10.0 - 20.0 03/07/2014 [facility] CHEM PANEL Creatinine Lvl 0.7 0.5 - 1.4 03/07/2014 [facility] CHEM PANEL CO2 24 24 - 32 03/07/2014 [facility] CHEM PANEL Albumin Lvl 2.8 3.5 - 5.0 03/07/2014 [facility] CHEM PANEL B/C Ratio 10 6 - 25 03/07/2014 [facility] CHEM PANEL Total Protein 6.5 6.4 - 8.4 03/07/2014 [facility] CHEM PANEL Chloride Lvl 107 95 - 109 03/07/2014 [facility] CHEM PANEL Potassium Lvl 3.4 3.5 - 5.1 03/07/2014 [facility] CHEM PANEL Sodium Lvl 140 135 - 145 03/07/2014 [facility] CHEM PANEL Calcium Lvl 8.4 8.5 - 10.5 03/07/2014 [facility] CHEM PANEL Magnesium Lvl 2.0 1.8 - 2.4 03/07/2014 [facility] HEMATOLOGY Eosinophils # 0.1 0.0 - 0.5 03/07/2014 [facility] HEMATOLOGY Lymphocytes # 1.7 1.0 - 5.5 03/07/2014 [facility] HEMATOLOGY Monocytes # 0.6 0.0 - 0.8 03/07/2014 [facility] HEMATOLOGY Segs 73.0 45.0 - 75.0 03/07/2014 [facility] HEMATOLOGY Lymphocytes 18.6 20.0 - 40.0 03/07/2014 [facility] HEMATOLOGY Basophils 0.3 0.0 - 1.0 03/07/2014 [facility] HEMATOLOGY Monocytes 6.8 2.0 - 12.0 03/07/2014 [facility] HEMATOLOGY Segs-Bands # 6.8 1.5 - 8.1 03/07/2014 [facility] HEMATOLOGY Eosinophils 1.3 0.0 - 4.0 03/07/2014 [facility] WBC 9.3 3.7 - 10.4 03/07/2014 [facility] Hgb 10.3 12.0 - 16.0 03/07/2014 [facility] RBC 3.57 4.20 - 5.40 03/07/2014 [facility] MCHC 33.8 32.0 - 36.0 03/07/2014 [facility] Hct 30.6 36.0 - 48.0 03/07/2014 [facility] MCH 28.9 27.0 - 31.0 03/07/2014 [facility] MCV 85.7 80.0 - 98.0 03/07/2014 [facility] MPV 9.2 7.4 - 10.4 03/07/2014 [facility] Platelet 333 133 - 450 03/07/2014 [facility] RDW 13.5 11.5 - 14.5 03/07/2014 [facility] PT 16.4 12.0 - 14.7 03/07/2014 [facility] INR 1.31 0.85 - 1.17 03/07/2014 <sup>7</sup>Interpretive Data: RECOMMENDED RANGES FOR PROTIME INR:
2.0-3.0 for most medical and surgical thromboembolic states.
2.5-3.5 for artificial heart valves and recurrent embolism.

INR SHOULD BE USED ONLY FOR PATIENTS ON STABLE ANTICOAGULANT THERAPY. [facility] HEMATOLOGY PTT 36.0 22.9 - 35.8 03/07/2014 <sup>8</sup>Interpretive Data: Heparin Therapeutic Range: 57 - 92 Seconds [facility] CHEM PANEL Lactic Acid Lvl 1.0 0.5 - 2.2 03/07/2014 [facility] URINE AND STOOL UA Urobilinogen <=1.0 mg/dL 0.1 - 1.0 03/07/2014 [facility] URINE AND STOOL UA Glucose Negative mg/dL Negative mg/dL 03/07/2014 [facility] URINE AND STOOL UA WBC <1 0 - 5 03/07/2014 [facility] URINE AND STOOL UA Sq Epi Few /LPF Few /LPF 03/07/2014 [facility] URINE AND STOOL UA Mucus Many /LPF None Seen /LPF 03/07/2014 [facility] URINE AND STOOL UA RBC 2 0 - 2 03/07/2014 [facility] URINE AND STOOL UA Nitrite Negative (03/06/14 7:15 PM) Negative 03/07/2014 [facility] URINE AND STOOL UA Color Yellow *NA* (03/06/14 7:15 PM) Yellow 03/07/2014 [facility] URINE AND STOOL UA Ketones Negative mg/dL Negative mg/dL 03/07/2014 [facility] URINE AND STOOL UA Blood Negative (03/06/14 7:15 PM) Negative 03/07/2014 [facility] URINE AND STOOL UA Bili Negative *NA* (03/06/14 7:15 PM) Negative 03/07/2014 [facility] URINE AND STOOL UA pH 5.0 5.0 - 8.0 03/07/2014 [facility] URINE AND STOOL UA Spec Grav 1.032 <=1.030 03/07/2014 [facility] URINE AND STOOL UA Protein Negative mg/dL Negative mg/dL 03/07/2014 [facility] URINE AND STOOL UA Turbidity Clear (03/06/14 7:15 PM) Clear 03/07/2014 [facility] URINE AND STOOL UA Leuk Est Negative (03/06/14 7:15 PM) Negative 03/07/2014 [facility] URINE CHEM U Preg Negative (03/06/14 7:15 PM) Negative 03/07/2014 [facility] CHEM PANEL Lipase Lvl 116 73 - 393 03/07/2014 [facility] CHEM PANEL B/C Ratio 10 6 - 25 03/07/2014 [facility] CHEM PANEL A/G Ratio 0.8 0.7 - 1.6 03/07/2014 [facility] CHEM PANEL Globulin 4.6 2.0 - 4.0 03/07/2014 [facility] CHEM PANEL Albumin Lvl 3.8 3.5 - 5.0 03/07/2014 [facility] CHEM PANEL Total Protein 8.4 6.4 - 8.4 03/07/2014 [facility] CHEM PANEL ALT 29 0 - 65 03/07/2014 [facility] CHEM PANEL AST 20 0 - 37 03/07/2014 [facility] CHEM PANEL Alk Phos 129 39 - 136 03/07/2014 [facility] CHEM PANEL Bili Total 0.5 0.2 - 1.3 03/07/2014 [facility] CHEM PANEL Amylase Lvl 45 25 - 115 03/07/2014 [facility] HEMATOLOGY Eosinophils # 0.1 0.0 - 0.5 03/07/2014 [facility] CHEM PANEL Globulin 3.5 2.0 - 4.0 02/20/2014 [facility] CHEM PANEL A/G Ratio 0.9 0.7 - 1.6 02/20/2014 [facility] CHEM PANEL B/C Ratio 8 6 - 25 02/20/2014 [facility] CHEM PANEL AGAP 13.2 10.0 - 20.0 02/20/2014 [facility] CHEM PANEL Total Protein 6.7 6.4 - 8.4 02/20/2014 [facility] CHEM PANEL ALT 20 0 - 65 02/20/2014 [facility] CHEM PANEL Alk Phos 111 39 - 136 02/20/2014 [facility] CHEM PANEL AST 10 0 - 37 02/20/2014 [facility] CHEM PANEL Bili Total 0.6 0.2 - 1.3 02/20/2014 [facility] CHEM PANEL eGFR 111 02/20/2014 <sup>1</sup>Result Comment: The eGFR is calculated using the CKD-EPI formula. In most young, healthy individuals the eGFR will be >90 mL/min/1.73m2. The eGFR declines with age. An eGFR of 60-89 may be normal in some populations, particularly the elderly, for whom the CKD-EPI formula has not been extensively validated. Use of the eGFR is not recommended in the following populations:& lt;br/>
Individuals with unstable creatinine concentrations, including patients and those with serious co-morbid conditions.

Patients with extremes in muscle mass or diet.

The data above are obtained from the National Kidney Disease Education Program (NKDEP) which additionally recommends that when the eGFR is used in patients with extremes of body mass index for purposes of drug dosing, the eGFR should be multiplied by the estimated BMI. [facility] CHEM PANEL Albumin Lvl 3.2 3.5 - 5.0 02/20/2014 [facility] CHEM PANEL CO2 26 24 - 32 02/20/2014 [facility] CHEM PANEL Calcium Lvl 8.6 8.5 - 10.5 02/20/2014 [facility] CHEM PANEL Glucose Lvl 99 70 - 99 02/20/2014 <sup>2</sup>Interpretive Data: Adult reference range values reflect the clinical guidelines
of the [place] [employer]. [facility] CHEM PANEL Chloride Lvl 103 95 - 109 02/20/2014 [facility] CHEM PANEL Sodium Lvl 138 135 - 145 02/20/2014 [facility] CHEM PANEL Potassium Lvl 4.2 3.5 - 5.1 02/20/2014 [facility] CHEM PANEL BUN 5 7 - 22 02/20/2014 [facility] CHEM PANEL Creatinine Lvl 0.6 0.5 - 1.4 02/20/2014 [facility] HEMATOLOGY Monocytes # 0.7 0.0 - 0.8 02/20/2014 [facility] HEMATOLOGY Eosinophils 0.2 0.0 - 4.0 02/20/2014 [facility] HEMATOLOGY Basophils 0.1 0.0 - 1.0 02/20/2014 [facility] HEMATOLOGY Segs-Bands # 9.5 1.5 - 8.1 02/20/2014 [facility] HEMATOLOGY Lymphocytes # 0.7 1.0 - 5.5 02/20/2014 [facility] HEMATOLOGY Monocytes 6.6 2.0 - 12.0 02/20/2014 [facility] HEMATOLOGY Segs 86.8 45.0 - 75.0 02/20/2014 [facility] Lymphocytes 6.3 20.0 - 40.0 02/20/2014 [facility] HEMATOLOGY WBC 10.9 3.7 - 10.4 02/20/2014 [facility] Platelet 273 133 - 450 02/20/2014 [facility] MPV 10.2 7.4 - 10.4 02/20/2014 [facility] Hgb 11.7 12.0 - 16.0 02/20/2014 [facility] HEMATOLOGY RBC 3.94 4.20 - 5.40 02/20/2014 [facility] HEMATOLOGY MCH 29.8 27.0 - 31.0 02/20/2014 [facility] HEMATOLOGY Hct 34.6 36.0 - 48.0 02/20/2014 [facility] HEMATOLOGY MCV 87.6 80.0 - 98.0 02/20/2014 [facility] HEMATOLOGY RDW 13.7 11.5 - 14.5 02/20/2014 [facility] HEMATOLOGY MCHC 34.0 32.0 - 36.0 02/20/2014 [facility] URINE AND STOOL UA Urobilinogen <=1.0 mg/dL 0.1 - 1.0 02/20/2014 [facility] URINE AND STOOL UA Color Yellow *NA* (02/20/14 11:23 AM) Yellow 02/20/2014 [facility] URINE AND STOOL UA Turbidity Slight *ABN* (02/20/14 11:23 AM) Clear 02/20/2014 [facility] URINE AND STOOL UA RBC 3 0 - 2 02/20/2014 [facility] URINE AND STOOL UA Mucus Few /LPF None Seen /LPF 02/20/2014 [facility] URINE AND STOOL UA Ketones Negative mg/dL Negative mg/dL 02/20/2014 [facility] URINE AND STOOL UA Glucose Negative mg/dL Negative mg/dL 02/20/2014 [facility] URINE AND STOOL UA Blood Negative (02/20/14 11:23 AM) Negative 02/20/2014 [facility] URINE AND STOOL UA Bili Negative *NA* (02/20/14 11:23 AM) Negative 02/20/2014 [facility] URINE AND STOOL UA Spec Grav 1.017 <=1.030 02/20/2014 [facility] URINE AND STOOL UA pH 6.0 5.0 - 8.0 02/20/2014 [facility] URINE AND STOOL UA Protein Negative mg/dL Negative mg/dL 02/20/2014 [facility] URINE AND STOOL UA Sq Epi Moderate /LPF Few /LPF 02/20/2014 [facility] URINE AND STOOL UA WBC <1 0 - 5 02/20/2014 [facility] URINE AND STOOL UA Leuk Est Negative (02/20/14 11:23 AM) Negative 02/20/2014 [facility] URINE AND STOOL UA Nitrite Negative (02/20/14 11:23 AM) Negative 02/20/2014 [facility] CHEM PANEL eGFR 106 02/01/2014 <sup>1</sup>Result Comment: The eGFR is calculated using the CKD-EPI formula. In most young, healthy individuals the eGFR will be >90 mL/min/1.73m2. The eGFR declines with age. An eGFR of 60-89 may be normal in some populations, particularly the elderly, for whom the CKD-EPI formula has not been extensively validated. Use of the eGFR is not recommended in the following populations:& lt;br/>
Individuals with unstable creatinine concentrations, including patients and those with serious co-morbid conditions.

Patients with extremes in muscle mass or diet.

The data above are obtained from the National Kidney Disease Education Program (NKDEP) which additionally recommends that when the eGFR is used in patients with extremes of body mass index for purposes of drug dosing, the eGFR should be multiplied by the estimated BMI. [facility] CHEM PANEL Potassium Lvl 4.2 3.5 - 5.1 02/01/2014 [facility] CHEM PANEL Sodium Lvl 138 135 - 145 02/01/2014 [facility] CHEM PANEL Creatinine Lvl 0.7 0.5 - 1.4 02/01/2014 [facility] CHEM PANEL BUN 16 7 - 22 02/01/2014 [facility] CHEM PANEL CO2 25 24 - 32 02/01/2014 [facility] CHEM PANEL Glucose Lvl 91 70 - 99 02/01/2014 <sup>2</sup>Interpretive Data: Adult reference range values reflect the clinical guidelines
of the [place] [employer]. [facility] CHEM PANEL Chloride Lvl 103 95 - 109 02/01/2014 [facility] CHEM PANEL Calcium Lvl 9.5 8.5 - 10.5 02/01/2014 [facility] CHEM PANEL AGAP 14.2 10.0 - 20.0 02/01/2014 [facility] HEMATOLOGY Platelet 263 133 - 450 02/01/2014 [facility] HEMATOLOGY RDW 13.5 11.5 - 14.5 02/01/2014 [facility] HEMATOLOGY MPV 10.1 7.4 - 10.4 02/01/2014 [facility] HEMATOLOGY MCV 87.8 80.0 - 98.0 02/01/2014 [facility] HEMATOLOGY MCH 29.1 27.0 - 31.0 02/01/2014 [facility] HEMATOLOGY MCHC 33.2 32.0 - 36.0 02/01/2014 [facility] HEMATOLOGY Hct 39.7 36.0 - 48.0 02/01/2014 [facility] HEMATOLOGY Hgb 13.2 12.0 - 16.0 02/01/2014 [facility] HEMATOLOGY RBC 4.52 4.20 - 5.40 02/01/2014 [facility] HEMATOLOGY WBC 11.1 3.7 - 10.4 02/01/2014 [facility] HEMATOLOGY Eosinophils # 0.1 0.0 - 0.5 02/01/2014 [facility] HEMATOLOGY Basophils # 0.1 0.0 - 0.2 02/01/2014 [facility] HEMATOLOGY Lymphocytes # 1.9 1.0 - 5.5 02/01/2014 [facility] HEMATOLOGY Monocytes # 0.7 0.0 - 0.8 02/01/2014 [facility] Segs-Bands # 8.3 1.5 - 8.1 02/01/2014 [facility] Eosinophils 1.2 0.0 - 4.0 02/01/2014 [facility] HEMATOLOGY Monocytes 6.6 2.0 - 12.0 02/01/2014 [facility] Basophils 0.5 0.0 - 1.0 02/01/2014 [facility] Lymphocytes 16.7 20.0 - 40.0 02/01/2014 [facility] Segs 75.0 45.0 - 75.0 02/01/2014 [facility] CHEM PANEL eGFR 90 01/09/2014 <sup>1</sup>Result Comment: The eGFR is calculated using the CKD-EPI formula. In most young, healthy individuals the eGFR will be >90 mL/min/1.73m2. The eGFR declines with age. An eGFR of 60-89 may be normal in some populations, particularly the elderly, for whom the CKD-EPI formula has not been extensively validated. Use of the eGFR is not recommended in the following populations:& lt;br/>
Individuals with unstable creatinine concentrations, including patients and those with serious co-morbid conditions.

Patients with extremes in muscle mass or diet.

The data above are obtained from the National Kidney Disease Education Program (NKDEP) which additionally recommends that when the eGFR is used in patients with extremes of body mass index for purposes of drug dosing, the eGFR should be multiplied by the estimated BMI. [facility] CHEM PANEL BUN 12 7 - 22 01/09/2014 [facility] CHEM PANEL Potassium Lvl 3.9 3.5 - 5.1 01/09/2014 [facility] CHEM PANEL Chloride Lvl 106 95 - 109 01/09/2014 [facility] CHEM PANEL Creatinine Lvl 0.8 0.5 - 1.4 01/09/2014 [facility] CHEM PANEL CO2 26 24 - 32 01/09/2014 [facility] CHEM PANEL Sodium Lvl 139 135 - 145 01/09/2014 [facility] CHEM PANEL AGAP 10.9 10.0 - 20.0 01/09/2014 [facility] CHEM PANEL Calcium Lvl 9.3 8.5 - 10.5 01/09/2014 [facility] CHEM PANEL Glucose Lvl 90 70 - 99 01/09/2014 <sup>2</sup>Interpretive Data: Adult reference range values reflect the clinical guidelines
of the [place] [employer]. [facility] ENDOCRINOLOGY S Preg Negative *NA* (01/09/14 10:21 AM) Negative 01/09/2014 [facility] HEMATOLOGY Basophils 0.6 0.0 - 1.0 01/09/2014 [facility] HEMATOLOGY Eosinophils # 0.2 0.0 - 0.5 01/09/2014 [facility] HEMATOLOGY Monocytes # 0.5 0.0 - 0.8 01/09/2014 [facility] HEMATOLOGY Eosinophils 2.4 0.0 - 4.0 01/09/2014 [facility] HEMATOLOGY Monocytes 5.9 2.0 - 12.0 01/09/2014 [facility] HEMATOLOGY Lymphocytes 15.5 20.0 - 40.0 01/09/2014 [facility] HEMATOLOGY Segs 75.6 45.0 - 75.0 01/09/2014 [facility] HEMATOLOGY Basophils # 0.1 0.0 - 0.2 01/09/2014 [facility] HEMATOLOGY Lymphocytes # 1.4 1.0 - 5.5 01/09/2014 [facility] HEMATOLOGY Segs-Bands # 6.8 1.5 - 8.1 01/09/2014 [facility] HEMATOLOGY Hgb 12.8 12.0 - 16.0 01/09/2014 [facility] HEMATOLOGY MCV 88.0 80.0 - 98.0 01/09/2014 [facility] HEMATOLOGY Hct 37.5 36.0 - 48.0 01/09/2014 [facility] HEMATOLOGY Platelet 241 133 - 450 01/09/2014 [facility] HEMATOLOGY RDW 13.5 11.5 - 14.5 01/09/2014 [facility] HEMATOLOGY MCHC 34.1 32.0 - 36.0 01/09/2014 [facility] HEMATOLOGY MCH 30.0 27.0 - 31.0 01/09/2014 [facility] HEMATOLOGY MPV 10.8 7.4 - 10.4 01/09/2014 [facility] HEMATOLOGY WBC 9.0 3.7 - 10.4 01/09/2014 [facility] HEMATOLOGY RBC 4.26 4.20 - 5.40 01/09/2014 [facility] IMMUNOLOGY CDC HIV 4th GEN Negative (01/09/14 10:21 AM) Negative 01/09/2014 [facility] Pathology Reports No Data Provided for This Section Diagnostic Reports Report Value Date Source Spine cervical wo contrast MRI Spine cervical wo contrast MRI 10/28/2018 10:25 CDT CLINICAL: M54.12 Radiculopathy, cervical region - M54.12 Radiculopathy, cervical region TECHNIQUE: Multiplanar multisequence imaging of the cervical spine was performed without administration of intravenous gadolinium. COMPARISON: No prior exam. FINDINGS: Multilevel disc desiccation is seen. The cervical cord signal is normal. C1-C2: No spinal stenosis or neural foraminal stenosis. C2-C3: There is preservation of the disc height, with no bulging, herniation, spinal stenosis, or neural foraminal stenosis. C3-C4: Mild bilateral facet arthrosis. No central canal or foraminal stenosis. C4-C5: 2.5 mm central disc protrusion is present with mild central canal stenosis. No foraminal stenosis with mass effect on spinal cord. C5-C6: 4 mm right disc osteophyte complex with severe right foraminal stenosis. 2.3 mm disc bulge with mild central canal stenosis and minimal cord indentation. Mild left foraminal stenosis due to small left foraminal osteophytes. C6-C7: There is preservation of the disc height, with no bulging, herniation, spinal stenosis, or neural foraminal stenosis. C7-T1: Mild bilateral facet arthrosis. No central canal or foraminal stenosis. IMPRESSION: 1. C4-C5 central disc protrusion with mild central canal stenosis. 2. C5-C6 severe right foraminal stenosis, mild central canal stenosis as above. 10/28/2018 JULIO Salgado Upper GI series DX Patient Name: NIDIA LANDRY : 1970; Age: 48 years Female MR: [id number] Study: Upper GI series DX 04/19/2018 8:30 [employer] Clinical Indication: - R13.10 Dysphagia, unspecified, R10.13 Epigastric pain, R19.7 Diarrhea, unspecified, R10.12 Left upper quadrant pain, R10.31 Right lower quadrant pain, R10.813 Right lower quadrant abdominal tenderness, patient stated 1 year history of swelling in throat after eating/drinking. History of lap band removal due to erosion. COMPARISON: None Fluoroscopy time: 1 MIN. 36 SEC. Reference Air Kerma: 119 mGy / 2,768.5 uGym2 TECHNIQUE: Patient swallowed gas crystals and different consistencies of barium without difficulty. Multiple images of the esophagus, stomach and duodenum were performed in recumbent and upright positions. FINDINGS: ESOPHAGUS: The esophagus demonstrates normal caliber and morphology. No obstructing mass lesion or stricture is visualized. There is a 3-4 cm sliding hiatal hernia. Tertiary waves are noted with mild delay in contrast passage. There is a small degree of reflux to the lower esophagus. STOMACH: The stomach is reasonably well distended with air. No intraluminal mass or large ulceration is visualized. No significant gastric fold thickening. There is prompt transit of the barium from the stomach into the duodenum. DUODENUM AND PROXIMAL SMALL BOWEL: The duodenal bulb and C-loop demonstrate normal morphology. No significant delay in passage of barium from the duodenal C-loop into the proximal jejunum. Visualized portion of proximal small bowel is normal in appearance. IMPRESSION: 1. 3-4 cm sliding hiatal hernia. 2. Mild dysmotility and delay in contrast passage. 3. Small degree of reflux to the lower esophagus. [id number] 04/19/2018 [facility] Pelvis w Transvag and Pelvis Doppler US TRANSABDOMINAL TRANSVAGINAL PELVIC ULTRASOUND. HISTORY: Intrauterine cystic focus 1.9 cm in greatest dimension on today's CT abdomen pelvis. COMPARISON: 02/27/2018 and 03/06/2014 CT abdomen pelvis exams. TRANSABDOMINAL IMAGES: The uterus is 9.6 x 4.6 x 4.8 cm. The endometrial stripe appears homogeneous and is 4 to 5 mm thick on transabdominal images. There is a subtle most isoechoic 2.2 x 1.8 x 2.3 cm structure within the myometrium which will be better evaluated on transvaginal images. The left ovary is 5.1 x 1.5 cm. The right ovary is 2.4 x 1.8 x 2.1 cm. There is a 3 cm greatest diameter cyst within the left ovary. Blood flow documented to both ovaries on Doppler ultrasound images. No pelvic fluid collections evident. Transvaginal imaging will be performed to better evaluate ovaries as well as the endometrial stripe and myometrium. TRANSVAGINAL IMAGES: Several nabothian cysts are present in the cervix. On transvaginal images the endometrial stripe is 8 mm thick and homogeneous. Immediately adjacent to the endometrial stripe is a 7 x 3 mm anechoic structure this is significantly smaller than the finding on recent CT. Myometrium otherwise has a somewhat coarsened appearance. No solid or cystic myometrial abnormalities corresponding to the CT findings are evident on this exam. The right ovary is not visualized on transvaginal images. The left ovary is 5.4 x 2.7 x 2.3 cm. There are a few anechoic cysts within the left ovary the largest of these is 2.9 cm in greatest dimension. There is blood flow to the left ovary on Doppler ultrasound images. There is no free pelvic fluid. IMPRESSION: 1. I do not identify a myometrial abnormality corresponding to the CT findings. If further imaging evaluation desired consider MRI of the pelvis or hysterosonography. 2. Left ovarian cysts. END IMPRESSION SL: [id number] 02/27/2018 [facility] ED Abdomen/Pelvis IV contrast only CT Clinical Indication: - RLQ abd pain Comparison: 04/19/2014 TECHNIQUE: Helical imaging was performed diaphragm through the symphysis with multiplanar reformations obtained. IV CONTRAST: 100cc Omnipaque 300 GI CONTRAST: No CT Radiation Dose: NIU=1925.41 mGy-cm FINDINGS: LOWER CHEST: The lung bases are clear. SOLID ORGANS: The liver, gallbladder, spleen, pancreas, adrenal glands and kidneys are normal. BOWEL: Stomach is unremarkable. No bowel obstruction. Normal caliber appendix without periappendiceal inflammatory change. PERITONEUM: No free intraperitoneal fluid or air. RETROPERITONEUM: No pathologic adenopathy. The aorta is normal in caliber. PELVIS: Bilateral ovarian follicles. There is an intrauterine cystic focus measuring 1.9 x 1.3 cm on axial image 91 of series 2. Small volume of fluid in the endometrial canal as well. The urinary bladder is normal. MUSCULOSKELETAL: No acute osseous abnormality. IMPRESSION: 1. Normal appendix. 2. Nonspecific intrauterine cystic focus may be assessed further by pelvic ultrasound. SL: [id number] 02/27/2018 [facility] Renal vessels Doppler US BILATERAL RENAL ULTRASOUND: The right kidney is 13.8 cm in length and 6.4 x 4.9 cm in transverse dimension. The left kidney is 14.6 cm in length and 5.8 x 4.9 cm in transverse dimension. There is subjective increased thickness of the renal parenchyma with mildly increased echogenicity, with hypoechoic renal pyramids demonstrated in the right kidney. There is no evidence of cyst, mass, hydronephrosis, or calculi. RENAL DOPPLER: Triplex evaluation of the renal arteries was done. The proximal right renal artery is not visualized due to gas. The peak systolic velocity in the main right renal artery is 67 cm/sec, with a right systolic velocity ratio of 0.9 and a resistive index of 0.79. The resistive indices in the hilar vessels are 0.72 to 0.91. There is normal appearance of the waveforms. Antegrade flow is demonstrated in the right renal vein. The peak systolic velocity in the left renal artery is 96 cm/sec, with a left systolic velocity ratio of 1.4 and a resistive index of 0.76. The resistive indices in the hilar vessels are 0.67 to 0.80. There is normal appearance of the waveforms. Antegrade flow is demonstrated in the left renal vein. IMPRESSION: 1. Imaging findings consistent with acute kidney injury. There is no evidence of hydronephrosis. 2. No Doppler evidence of renal artery stenosis. SL:13 04/30/2014 [facility] Abdomen/Pelvis w IV contrast CT CT SCAN OF THE ABDOMEN AND PELVIS WITH CONTRAST. HX: pt had lap band placed 02/07, not inflated, recent redness and swelling around epigastric incision, inability to tolerate food, severe abd pain / Abdominal pain, acute. COMPARISON: [None] Technique: Helical CT images were obtained from the domes the diaphragms to the symphysis pubis following the administration of oral and intravenous contrast. ABDOMEN AND PELVIS: Small left pleural effusion and fluid along the fissure. The heart is normal in size. Postoperative lap band procedure is present. Overlying skin thickening and moderate fluid around the subcutaneous port in the central abdomen with nonspecific extensive inflammatory change along the catheter extending toward the lap band ring. The liver, spleen, pancreas, and adrenals are normal in appearance. The kidneys show good, symmetrical, excretion without hydronephrosis. grossly normal appendix. Probably small bilateral ovarian cysts are present. The bladder is nondistended. IMPRESSION: 1. Postoperative lap band procedure is present. Overlying skin thickening and moderate fluid around the subcutaneous port in the central abdomen with nonspecific extensive inflammatory change along the catheter extending toward the lap band ring. Differential favors infection of the port and catheter. Please correlate clinically and surgical evaluation recommended. 2. Small left pleural effusion is present. 3. No convincing evidence of acute appendicitis. SL: 12 03/06/2014 [facility] Chest 2 views PROCEDURE: Chest 2 views REASON FOR EXAM: See Clinic Indication CLINICAL INDICATION: Coughing COMPARISON: 02/20/2014. FINDINGS: Mild blunting of the left costophrenic angle suggesting small pleural effusion. No focal consolidation or pneumothorax. Stable cardiac silhouette and mediastinum. Postoperative lap band procedure is present similar in appearance to prior examination. SL: 12 03/06/2014 [facility] Abdomen 2 views Supine and upright abdomen: A LapBand is seen in satisfactory position. The gas pattern is within normal limits. There is no evidence of mass, organomegaly, or pneumoperitoneum. There are no signific ant calcifications. The osseous structures are unremarkable. There is no significant change compared to Upper GI series on 02/07/2014. IMPRESSION: No acute radiographic abnormality in the abdomen. SL:13 03/06/2014 [facility] Chest 2 views PA and LATERAL CHEST (2 views) HISTORY: fever ; s/p lap band 2 weeks ago A chest CT scan of 01/09/2014 was reviewed. There are no prior chest radiographs available for comparison or review. FINDINGS: There is very mild bibasilar linear atelectasis and minimal pleural effusions. The lungs are otherwise clear. The heart and pulmonary vasculature are within normal limits. The regional skeleton is unremarkable. A lap band device is noted. CONCLUSION: 1. Very mild bibasilar linear atelectasis and minimal pleural effusions. 2. The lungs are otherwise clear. 3. Lap band device in position. Coding: Chest 2 views CPT Code: 87073 SL: 12 Vincenzo Lobato M.D. 02/20/2014 [facility] Upper GI Series w water soluble DX Single contrast upper GI series: CLINICAL HISTORY: Gastric lap banding, evaluate for leaks, obstruction Multiple fluoroscopic spot images of the GE junction and delayed overhead image were performed. The available images demonstrate contrast from the esophagus flowing past the lap band catheter into the main body of the stomach. The orientation of the lap band catheter is within normal limits. There is no evidence for obstruction at the site of the lap band catheter. No extraluminal contrast is visualized on the submitted images to suggest a leak. Fluoroscopy Time: 0.2 minutes SL:02/07/2014 [facility] Chest w contrast CT EXAM: CT chest. HISTORY: Chest pain status post recent upper endoscopy. Possible esophageal perforation, mediastinitis. COMPARISON: None. TECHNIQUE: Axial images obtained of the thorax with IV contrast. Sagittal and coronal reformats. FINDINGS: The mediastinum is unremarkable; no free air, inflammation, hematoma or adenopathy. No pleural effusion. The lungs are essentially clear. No pneumothorax. Heart size normal. Mild spondylosis thoracic spine. Fatty liver. IMPRESSION: 1. Unremarkable CT chest. No esophageal or mediastinal injury is seen. 2. Fatty liver. SL:01/09/2014 [facility] Upper GI Series w water soluble DX EXAM: Upper GI HISTORY: Recent upper endoscopy, chest pain. Evaluate for esophageal perforation. COMPARISON: None TECHNIQUE: The patient drank water-soluble contrast without difficulty. Fluoro time 0.38 minutes. FINDINGS: The esophagus demonstrates normal caliber and peristalsis without contrast extravasation seen. Contrast opacifies the stomach without leak visualized. IMPRESSION: No esophageal perforation is seen. SL:01/09/2014 [facility] Consultation Notes No Data Provided for This Section Discharge Summaries No Data Provided for This Section History and Physicals No Data Provided for This Section Vital Signs Vital Sign Value Date Comments Source Temperature Oral (F) 98.3 F 02/27/2018 [facility] Respitory Rate 11 02/27/2018 [facility] Systolic (mm Hg) 164 02/27/2018 [facility] Diastolic (mm Hg) 66 02/27/2018 [facility] Respitory Rate 14 02/27/2018 [facility] Systolic (mm Hg) 176 02/27/2018 [facility] Diastolic (mm Hg) 84 02/27/2018 [facility] Respitory Rate 11 02/27/2018 [facility] Systolic (mm Hg) 173 02/27/2018 [facility] Diastolic (mm Hg) 82 02/27/2018 [facility] Temperature Oral (F) 98.3 F 02/27/2018 [facility] Heart Rate 63 02/27/2018 [facility] Temperature Oral (F) 98.5 F 02/27/2018 [facility] Weight 98.636 02/27/2018 [facility] Heart Rate 78 02/27/2018 [facility] Heart Rate 84 05/03/2014 [facility] Respitory Rate 14 05/03/2014 [facility] Systolic (mm Hg) 152 05/03/2014 [facility] Temperature Oral (F) 98.4 F 05/03/2014 [facility] Diastolic (mm Hg) 86 05/03/2014 [facility] Systolic (mm Hg) 167 05/03/2014 [facility] Diastolic (mm Hg) 90 05/03/2014 [facility] Respitory Rate 14 05/03/2014 [facility] Heart Rate 110 05/03/2014 [facility] Temperature Oral (F) 97.4 F 05/03/2014 [facility] Diastolic (mm Hg) 84 05/03/2014 [facility] Respitory Rate 16 05/03/2014 [facility] Heart Rate 104 05/03/2014 [facility] Temperature Oral (F) 98.8 F 05/03/2014 [facility] Systolic (mm Hg) 147 05/03/2014 [facility] Height 157.48 cm 04/24/2014 [facility] Weight 91.023 04/24/2014 [facility] BMI Calculated 36.7 04/24/2014 [facility] Systolic (mm Hg) 136 04/21/2014 [facility] Diastolic (mm Hg) 81 04/21/2014 [facility] Respitory Rate 17 04/21/2014 [facility] Diastolic (mm Hg) 88 04/21/2014 [facility] Respitory Rate 17 04/21/2014 [facility] Systolic (mm Hg) 124 04/21/2014 [facility] Respitory Rate 17 04/21/2014 [facility] Systolic (mm Hg) 131 04/21/2014 [facility] Diastolic (mm Hg) 80 04/21/2014 [facility] Weight 92.273 04/20/2014 [facility] Height 157.48 cm 04/20/2014 [facility] BMI Calculated 37.21 04/20/2014 [facility] Height 157.48 cm 03/21/2014 [facility] Weight 93.182 03/21/2014 [facility] BMI Calculated 37.57 03/21/2014 [facility] Diastolic (mm Hg) 74 03/10/2014 [facility] Temperature Oral (F) 97.4 F 03/10/2014 [facility] Heart Rate 78 03/10/2014 [facility] Respitory Rate 18 03/10/2014 [facility] Systolic (mm Hg) 112 03/10/2014 [facility] Diastolic (mm Hg) 82 03/10/2014 [facility] Systolic (mm Hg) 120 03/10/2014 [facility] Respitory Rate 18 03/10/2014 [facility] Heart Rate 80 03/10/2014 [facility] Temperature Oral (F) 98.2 F 03/10/2014 [facility] Respitory Rate 18 03/10/2014 [facility] Systolic (mm Hg) 122 03/10/2014 [facility] Diastolic (mm Hg) 80 03/10/2014 [facility] Heart Rate 75 03/10/2014 [facility] Temperature Oral (F) 98.7 F 03/10/2014 [facility] Weight 92.273 03/06/2014 [facility] Height 157.48 cm 03/06/2014 [facility] BMI Calculated 37.21 03/06/2014 [facility] Systolic (mm Hg) 153 02/07/2014 [facility] Diastolic (mm Hg) 86 02/07/2014 [facility] Diastolic (mm Hg) 88 02/07/2014 [facility] Systolic (mm Hg) 155 02/07/2014 [facility] Diastolic (mm Hg) 82 02/07/2014 [facility] Systolic (mm Hg) 152 02/07/2014 [facility] Respitory Rate 11 02/07/2014 [facility] Respitory Rate 17 02/07/2014 [facility] Respitory Rate 15 02/07/2014 [facility] Heart Rate 75 02/07/2014 [facility] Temperature Oral (F) 98.9 F 02/01/2014 [facility] Heart Rate 83 02/01/2014 [facility] Height 152.4 cm 02/01/2014 [facility] BMI Calculated 43.08 02/01/2014 [facility] Weight 100.057 02/01/2014 [facility] Systolic (mm Hg) 148 01/09/2014 [facility] Diastolic (mm Hg) 75 01/09/2014 [facility] Respitory Rate 15 01/09/2014 [facility] Respitory Rate 20 01/09/2014 [facility] Systolic (mm Hg) 157 01/09/2014 [facility] Respitory Rate 14 01/09/2014 [facility] Diastolic (mm Hg) 94 01/09/2014 [facility] Systolic (mm Hg) 150 01/09/2014 [facility] Diastolic (mm Hg) 109 01/09/2014 [facility] Weight 104.318 01/09/2014 [facility] Height 152.4 cm 01/09/2014 [facility] BMI Calculated 44.91 01/09/2014 [facility] Temperature Oral (F) 98.2 F 01/09/2014 [facility] Heart Rate 68 01/09/2014 [facility] Respitory Rate 18 01/03/2014 [facility] Systolic (mm Hg) 129 01/03/2014 [facility] Diastolic (mm Hg) 62 01/03/2014 [facility] Diastolic (mm Hg) 63 01/03/2014 [facility] Systolic (mm Hg) 121 01/03/2014 [facility] Respitory Rate 18 01/03/2014 [facility] Systolic (mm Hg) 129 01/03/2014 [facility] Diastolic (mm Hg) 62 01/03/2014 [facility] Respitory Rate 18 01/03/2014 [facility] Heart Rate 81 12/29/2013 [facility] Temperature Oral (F) 98.2 F 12/29/2013 [facility] BMI Calculated 44.31 12/29/2013 [facility] Weight 106.364 12/29/2013 [facility] Height 154.94 cm 12/29/2013 [facility] Encounters Location Location Details Encounter Type Encounter Number Reason For Visit Attending Provider ADM Date DC Date Status Source [facility] Bedded Outpatient [id number] Bacilio Resendiz 01/03/2014 01/03/2014 [facility] EC Emergency [facility] [id number] Saúlelke Lermaeal 01/09/2014 01/09/2014 [facility] OBS Day Surgery [id number] Bacilio Resendiz 02/07/2014 02/07/2014 [facility] Outpatient [id number] Bacilio Resendiz 02/20/2014 02/21/2014 [facility] Inpatient [id number] Adrien Flaherty 03/06/2014 03/10/2014 [facility] Outpatient [id number] Mayraher Roscoe 04/19/2014 04/20/2014 [facility] Bedded Outpatient [id number] Jasmin Zamorano 04/21/2014 04/21/2014 [facility] Inpatient [id number] Bacilio Resendiz 04/24/2014 05/02/2014 [facility] Outpatient [id number] Christian Assoukrystle 05/04/2014 05/05/2014 [facility] Outpatient [id number] Christian Assouad 05/08/2014 05/09/2014 [facility] OP Recurring [id number] Crhistian Marinkrystle 05/11/2014 06/10/2014 [facility] Outpatient [id number] Christian Hamiltonsarahi 07/28/2014 07/29/2014 [facility] Emergency [id number] Wesley Hidalgo 02/27/2018 02/27/2018 [facility] Outpatient [id number] Jasmin Zamorano 04/19/2018 04/20/2018 [facility] [id number] Gamal Michelle 10/28/2018 10/29/2018 [facility] Procedures Procedure Code Date Perfomer Comments Source Laparoscopic adjustable gastric banding [id number] 01/28/2014 [facility] Laparoscopic adjustable gastric banding [id number] 01/28/2014 [facility] CS - section<sup>1</sup> 43464359 x4 [facility] Endometrial ablation<sup>2</sup> [id number] novasure [facility] Esophagogastroduodenoscopy [id number] [facility] Operation<sup>1</sup> [id number] 1Lap band port removed due to infection on Mar 10, 2014 [facility] Operation<sup>3</sup> [id number] Lap band port removed due to infection on Mar 10, 2014 [facility] CS - section<sup>1</sup> 05258476 x4 [facility] Endometrial ablation<sup>2</sup> [id number] novasure [facility] Esophagogastroduodenoscopy [id number] [facility] Operation<sup>3</sup> [id number] Lap band port removed due to infection on Mar 10, 2014 [facility] Assessment and Plan Assessment and Plan Date Source Extracted from:Title: Clinical Document Author: Christian Crump MD Date: 05/03/14 Progress Note Nephrology SUBJECTIVE atn secondary to contrast, sepsis , and abx PLAN and TREATMENT improved renal function cancelled biopsy and dialysis. closer to euvolemia continue abx per team stable k, DISCHARGE the patient will see in one week, labs schedule given to patient Vitals Tmp(F) Tmp(C) Ttype BP MAP Pulse RR SpO2 FIO2 ETCO2 05/03 12:30 98.4 36.89 oral 152/86 --- 84 14 --- --- --- 05/03 07:45 97.4 36.33 oral 167/90 --- 110 14 --- --- --- 05/03 04:11 98.8 37.11 oral 147/84 --- 104 16 --- --- --- 05/02 23:42 98.8 37.11 oral 144/88 --- 98 16 --- --- --- 05/02 19:16 98.2 36.78 oral 149/78 --- 84 16 --- --- --- 24 Hr Tmax: 99.5F (37.50c) at 05/02 15:58 Vital Signs are the last 5 in the past 48 hours. 24 Hr Tmin: 97.4F (36.33c) at 05/03 07:45 Weights are the last 5 in 60 days, plus initial. Date Wt(kg) Wt(lb) Ht(cm) Ht(in) Method BMI BSA 04/24 (initial) 91.02 200.25 Measured 36.7 2.00 04/24 157.48 62.00 Stated (no point of care glucose results charted in last 24 hours) Most Recent Scores: 05/03/14 Amador Mack Fall Score 0 05/03/14 Pain Intensity NRS (0-10) 0 05/02/14 Vamsi Coma Score 15 05/02/14 Trell Score 21 Lines, Tubes, and Drains: 05/01/2014 07:25 Peripheral Lines: Forearm Left Over the needle catheter 04/24/2014 13:30 Gastric Tubes: Nasogastric Nostril, right 14 Mauritanian 04/24/2014 12:48 Surgical Procedures: 04/24/14 12:11 LAPAROSCOPIC GASTRIC BAND REMOVAL Primary Surgeon: Bacilio Resendiz MD (Service: GEN) Input/Output Record In Out Bal 05/03 24hr Tot 750 750 0 05/02 24hr Tot 1300 2200 -900 Physical Exam alert, oriented HEENT : peerla NECK: no jvd, no bruits, HEART : RRR no s3 no S4, no murmur, no rub LUNGS: no wheezes no rales, no rhonci ABDOMEN: NTND no organomegaly no hepatomegaly positive bowel sounds EXT: no clubbing no cyanosis no edema NEURO:no focalities, no sensory defecits, no motor defecits SKIN: no rash, no bruises Scheduled Meds (6):clarithromycin (Biaxin), enoxaparin (Lovenox), gabapentin (Neurontin 100 mg oral capsule), levofloxacin (Levaquin), sodium bicarbonate, thiamine (Vitamin B1) Unscheduled Meds (1):ceFAZolin PRN Meds (9):acetaminophen, acetaminophen, cyclobenzaprine, hydromorphone (Dilaudid), hydromorphone (Dilaudid), metoprolol, ondansetron, phenol topical (phenol topical 1.4% spray), promethazine One Time Meds: None Continuous Infusions: None Labs (Last four charted values) WBC 7.1 (MAY 02) 6.8 (MAY 01) 5.2 (APR 29) 5.7 (APR 28) Hgb L 8.7 (MAY 02) L 8.8 (MAY 01) L 9.5 (APR 29) L 10.9 (APR 28) Hct L 24.8 (MAY 02) L 25.7 (MAY 01) L 28.1 (APR 29) L 32.2 (APR 28) Plt 274 (MAY 02) 265 (MAY 01) 217 (APR 29) 228 (APR 28) Na 144 (MAY 03) 144 (MAY 02) 142 (MAY 01) 140 (APR 30) K 3.7 (MAY 03) 3.9 (MAY 02) 4.0 (MAY 01) 3.6 (APR 30) CO2 25 (MAY 03) L 22 (MAY 02) 24 (MAY 01) L 19 (APR 30) Cl 107 (MAY 03) H 112 (MAY 02) 108 (MAY 01) 109 (APR 30) Cr H 7.0 (MAY 03) H 7.6 (MAY 02) H 8.0 (MAY 01) H 7.8 (APR 30) BUN H 44 (MAY 03) H 46 (MAY 02) H 42 (MAY 01) H 36 (APR 30) Glucose Random 99 (MAY 03) 98 (MAY 02) 92 (MAY 01) 89 (APR 30) Mg 1.8 (APR 30) Phos H 4.7 (APR 30) Ca 8.8 (MAY 03) 8.8 (MAY 02) 8.6 (MAY 01) 8.7 (APR 30) 05/02/2014 [facility] Extracted from:Title: Clinical Document Author: Adrien Flaherty DO Date: 03/10/14 Progress Daily [facility] Completed: Feb, 14:03 by Adrien Flaherty DO RM: 235 - 2W, SE C2A NIDIA LANDRY 44y (: 1970) F Attending: Adrien Flaherty DO Service: Internal Medicine Reason for Admission: POSSIBLE LAP BAND INFECTION Working DRG: Other digestive system O.R. procedures w/o CC/USP Code status: Full Code [Ordered] Current diet: Isolation: None Documented Allergies: NKDA SUBJECTIVE Patient seen and examined. Events noted overnight. Labs/Images reviewed doing ok, no other issues OBJECTIVE Labs (Last four charted values) WBC 8.2 (MAR 09) 7.9 (MAR 07) 9.3 (MAR 07) H 11.7 (MAR 06) Hgb L 9.7 (MAR 09) L 10.8 (MAR 07) L 10.3 (MAR 07) 12.6 (MAR 06) Hct L 28.3 (MAR 09) L 31.7 (MAR 07) L 30.6 (MAR 07) 37.8 (MAR 06) Plt 278 (MAR 09) 308 (MAR 07) 333 (MAR 07) 404 (MAR 06) Na 138 (MAR 09) 138 (MAR 07) 140 (MAR 07) 138 (MAR 06) K 3.8 (MAR 09) 3.7 (MAR 07) L 3.4 (MAR 07) 3.8 (MAR 06) CO2 26 (MAR 09) L 23 (MAR 07) 24 (MAR 07) 26 (MAR 06) Cl 102 (MAR 09) 106 (MAR 07) 107 (MAR 07) 101 (MAR 06) Cr 0.7 (MAR 09) 0.6 (MAR 07) 0.7 (MAR 07) 0.7 (MAR 06) BUN L 4 (MAR 09) L 5 (MAR 07) 7 (MAR 07) 7 (MAR 06) Glucose Random H 133 (MAR 09) 93 (MAR 07) H 111 (MAR 07) 88 (MAR 06) Mg 2.1 (MAR 07) 2.0 (MAR 07) Phos 3.1 (MAR 07) Ca L 8.4 (MAR 09) L 8.4 (MAR 07) L 8.4 (MAR 07) 9.8 (MAR 06) PT H 16.4 (MAR 07) INR H 1.31 (MAR 07) PTT H 36.0 (MAR 07) ASSESSMENT and EXAM Gen: NAD, Alert, Awake HEENT: NC/AT, PERRLA, oral area clear and moist Neck: No LAD, No JVD, trachea midline Chest: CTAB, no c/w/r CV: RRR, S1, S2 GI: +BS, S, NT, ND, incision site covered with dressings, No organomegaly Ext: no c/c/e Neuro: AOx3, no gross deficits noted Skin: No notable rashes PLAN and TREATMENT will d/c on 2 weeks of PO abx wound care daily f/[facility] Dr. Resendiz in 1 week ordered adn set up DIAGNOSES and PROBLEMS 1. Laparoscopic band port infection with possible catheter infection. 2. Leukocytosis 3. Dehydration. Ready for Discharge (Yes/No)? Bright still necessary (Yes/No): Line still necessary (Yes/No): (no lab data in past 24 hours) Vitals Tmp(F) Pulse BP RR SpO2 FIO2 03/10 08:00 98.7 75 122/80 18 96 --- 03/10 03:30 98.5 85 113/75 18 97 --- 03/09 23:15 98.4 77 112/69 18 97 --- 03/09 19:24 99.5 86 118/77 18 98 --- 03/09 16:00 99.3 94 104/72 18 98 --- 24 Hr Tmax: 99.5F (37.50c) at 03/09 19:24 Vital Signs are the last 5 in the past 48 hours. Date Wt(kg) Wt(lb) Ht(cm) Ht(in) Method 03/07 98.64 217.00 Measured 03/06 (initial) 92.27 203.00 Measured 03/06 157.48 62.00 Stated I&O Record In Out Bal 03/10 24hr Tot 606 0 606 03/09 24hr Tot 1340 0 1340 Medications (16) Active Scheduled Meds (4): 03/07/14 cefepime + Sodium Chloride 0.9% IV 100 mL 1 gm IVPB [id number] 200 ml/hr 03/08/14 famotidine (Pepcid) 20 mg PO Q12H 03/07/14 metoclopramide 10 mg IVP Q8H 03/07/14 vancomycin 1 gm IVPB [id number] 200 ml/hr Unscheduled Meds: None PRN Meds (12): 03/07/14 acetaminophen 650 mg PO Q4H 03/07/14 acetaminophen 650 mg HI Q4H 03/07/14 docusate 100 mg PO BID 03/07/14 flumazenil 0.2 mg IVP PRN 03/07/14 flumazenil 0.1 mg IVP Q5Min 03/07/14 metoprolol 2.5 mg IVP Q6H 03/07/14 morphine Sulfate 2 mg IVP Q3H 03/07/14 morphine Sulfate 4 mg IVP Q3H 03/07/14 naloxone 0.1 mg IVP Q2MIN 03/07/14 ondansetron 4 mg IVP Q12H 03/07/14 promethazine 12.5 mg IM Q4H 03/07/14 sodium chloride (Saline Flush 0.9%) 10 ml IVP PRN One Time Meds: None Continuous Infusions: None 03/10/2014 [facility] Plan of Care No Data Provided for This Section Social History Social History Date Source Social History TypeResponse Substance Abuse Use: None. Alcohol Current, Type Beer. Frequency: 1-2 times per month. Smoking Status Former smoker; Type: Cigarettes; Exposure to Tobacco Smoke None; Cigarette Smoking Last 365 Days No; Reg Smoking Cessation Counseling No; Total pack years: 1; Started at age: 14.0; Stopped at age: 16; 1 entered on: 02/27/18 1smoked as a teenager 01/09/2014 [facility] Social History TypeResponse Substance Abuse Use: None. Alcohol Current, Type Beer. Frequency: 1-2 times per month. Smoking Status Former smoker; Type: Cigarettes; Exposure to Tobacco Smoke None; Cigarette Smoking Last 365 Days No; Reg Smoking Cessation Counseling No; Total pack years: 1; Started at age: 14.0; Stopped at age: 16; 1 entered on: 02/27/18 1smoked as a teenager 01/09/2014 JUL[facility] Salgado Family History No Data Provided for This Section Advance Directives No Data Provided for This Section Functional Status No Data Provided for This Section
--- OUTSIDE RECORDS SUMMARY | 2018-11-02 09:02 | XMS REPORT | Summary of Care ---
Author Organization Unknown Address Unknown Phone Unavailable Encounter [facility] Elissa(FIN) [id number] Date(s): 02/20/14 - 02/20/[address] [facility] [address] [address] [place] Discharge Disposition: Home Physician Attending: Bacilio Resendiz MD Reason for Visit FEVER Problem List Condition Effective Dates Status Health Status Informant Acid Active reflux(Confirmed) Anxiety(Confirmed) Active SOBOE - Shortness of Active breath on exertion(Confirmed) Allergies, Adverse Reactions, Alerts Substance Reaction Severity Status NKDA Active Medications No data available for this section Results ELECTROLYTES Most recent to 1 oldest [Reference Range]: Sodium Lvl [135-145 138 mEq/L mEq/L] (02/20/14 11:24 AM) Potassium Lvl 4.2 mEq/L [3.5-5.1 mEq/L] (02/20/14 11:24 AM) Chloride Lvl [95-109 103 mEq/L mEq/L] (02/20/14 11:24 AM) CO2 [24-32 mEq/L] 26 mEq/L (02/20/14 11:24 AM) AGAP [10.0-20.0 13.2 mEq/L mEq/L] (02/20/14 11:24 AM) CHEM PANEL Most recent to 1 oldest [Reference Range]: Creatinine Lvl 0.6 mg/dL [0.5-1.4 mg/dL] (02/20/14 11:24 AM) eGFR 111 mL/min/1.73m2 1 *NA* (02/20/14 11:24 AM) BUN [7-22 mg/dL] 5 mg/dL *LOW* (02/20/14 11:24 AM) B/C Ratio [6-25] 8 (02/20/14 11:24 AM) Glucose Lvl [70-99 99 mg/dL 2 mg/dL] (02/20/14 11:24 AM) Total Protein 6.7 g/dL [6.4-8.4 g/dL] (02/20/14 11:24 AM) Albumin Lvl [3.5-5.0 3.2 g/dL g/dL] *LOW* (02/20/14 11:24 AM) Globulin [2.0-4.0 3.5 g/dL g/dL] (02/20/14 11:24 AM) A/G Ratio [0.7-1.6] 0.9 (02/20/14 11:24 AM) Calcium Lvl 8.6 mg/dL [8.5-10.5 mg/dL] (02/20/14 11:24 AM) ALT [0-65 unit/L] 20 unit/L (02/20/14 11:24 AM) AST [0-37 unit/L] 10 unit/L (02/20/14 11:24 AM) Alk Phos [39-136 111 unit/L unit/L] (02/20/14 11:24 AM) Bili Total [0.2-1.3 0.6 mg/dL mg/dL] (02/20/14 11:24 AM) 1Result Comment: The eGFR is calculated using the [...] from the National Kidney Disease Education Program ( NKDEP) which additionally recommends that when the eGFR is used in patients with extremes of body mass index for purposes of drug dosing, the eGFR should be mul tiplied by the estimated BMI. 2Interpretive Data: Adult reference range values reflect the clinical guidelines of the [place] [employer]. URINE AND STOOL Most recent to 1 oldest [Reference Range]: UA Turbidity [Clear] Slight *ABN* (02/20/14 11:23 AM) UA Color [Yellow] Yellow *NA* (02/20/14 11:23 AM) UA pH [5.0-8.0] 6.0 (02/20/14 11:23 AM) UA Spec Grav 1.017 [<=1.030] (02/20/14 11:23 AM) UA Glucose [Negative Negative mg/dL mg/dL] *NA* (02/20/14 11:23 AM) UA Blood [Negative] Negative (02/20/14 11:23 AM) UA Ketones [Negative Negative mg/dL mg/dL] *NA* (02/20/14 11:23 AM) UA Protein [Negative Negative mg/dL mg/dL] (02/20/14 11:23 AM) UA Urobilinogen <=1.0 mg/dL [0.1-1.0 mg/dL] *NA* (02/20/14 11:23 AM) UA Bili [Negative] Negative *NA* (02/20/14 11:23 AM) UA Leuk Est Negative [Negative] (02/20/14 11:23 AM) UA Nitrite Negative [Negative] (02/20/14 11:23 AM) UA WBC [0-5 /HPF] <1 /HPF (02/20/14 11:23 AM) UA RBC [0-2 /HPF] 3 /HPF *HI* (02/20/14 11:23 AM) UA Sq Epi [Few /LPF] Moderate /LPF *ABN* (02/20/14 11:23 AM) UA Mucus [None Seen Few /LPF /LPF] *NA* (02/20/14 11:23 AM) HEMATOLOGY Most recent to 1 oldest [Reference Range]: WBC [3.7-10.4 K/CMM] 10.9 K/CMM *HI* (02/20/14 11:24 AM) RBC [4.20-5.40 3.94 M/CMM M/CMM] *LOW* (02/20/14 11:24 AM) Hgb [12.0-16.0 g/dL] 11.7 g/dL *LOW* (02/20/14 11:24 AM) Hct [36.0-48.0 %] 34.6 % *LOW* (02/20/14 11:24 AM) MCV [80.0-98.0 fL] 87.6 fL (02/20/14 11:24 AM) MCH [27.0-31.0 pg] 29.8 pg (02/20/14 11:24 AM) MCHC [32.0-36.0 34.0 g/dL g/dL] (02/20/14 11:24 AM) RDW [11.5-14.5 %] 13.7 % (02/20/14 11:24 AM) Platelet [133-450 273 K/CMM K/CMM] (02/20/14 11:24 AM) MPV [7.4-10.4 fL] 10.2 fL (02/20/14 11:24 AM) Segs [45.0-75.0 %] 86.8 % *HI* (02/20/14 11:24 AM) Lymphocytes 6.3 % [20.0-40.0 %] *LOW* (02/20/14 11:24 AM) Monocytes [2.0-12.0 6.6 % %] (02/20/14 11:24 AM) Eosinophils [0.0-4.0 0.2 % %] (02/20/14 11:24 AM) Basophils [0.0-1.0 0.1 % %] (02/20/14 11:24 AM) Segs-Bands # 9.5 K/CMM [1.5-8.1 K/CMM] *HI* (02/20/14 11:24 AM) Lymphocytes # 0.7 K/CMM [1.0-5.5 K/CMM] *LOW* (02/20/14 11:24 AM) Monocytes # [0.0-0.8 0.7 K/CMM K/CMM] (02/20/14 11:24 AM) Medications Administered During Your Visit No data available for this section Immunizations No data available for this section Social History Social History Type Response Substance Abuse Use: None Alcohol Use: Current1 Smoking Status Unknown if ever smoked, Exposure to Tobacco Smoke None, Cigarette Smoking Last 365 Days No, Reg Smoking Cessation Counseling No 1occasional
--- OUTSIDE RECORDS SUMMARY | 2018-11-02 09:02 | XMS REPORT | Summary of Care ---
Author Organization Unknown Address Unknown Phone Unavailable Encounter [facility] Elissa(CHARLES) [id number] Date(s): 04/21/14 - 04/21/14 [facility] [address] Discharge Disposition: Home Physician Attending: Jasmin Zamorano MD Physician Admitting: Jasmin Zamorano MD Physician_Referring: Jasmin Zamorano MD Reason for Visit 789.06 Vital Signs 1 2 3 Most recent to oldest [Reference Range]: 157.48 cm (04/20/14 11:04 AM) 157.48 cm (03/21/14 5:01 PM) Height 136 mmHg (04/21/14 2:15 PM) 124 mmHg (04/21/14 2:00 PM) 131 mmHg (04/21/14 1:45 PM) Systolic Blood Pressure [90-140 mmHg] 81 mmHg (04/21/14 2:15 PM) 88 mmHg (04/21/14 2:00 PM) 80 mmHg (04/21/14 1:45 PM) Diastolic Blood Pressure [60-90 mmHg] 17 BRMIN (04/21/14 2:15 PM) 17 BRMIN (04/21/14 2:00 PM) 17 BRMIN (04/21/14 1:45 PM) Respiratory Rate [14-20 BRMIN] 92.273 kg (04/20/14 11:04 AM) 93.182 kg (03/21/14 5:01 PM) Weight 37.21 m2 (04/20/14 11:04 AM) 37.57 m2 (03/21/14 5:01 PM) Body Mass Index Problem List Condition Effective Dates Status Health Status Informant Acid Active reflux(Confirmed) Anxiety(Confirmed) Active Chest pain at Resolved rest(Confirmed)1 Dysphagia(Confirmed) Active SOBOE - Shortness of Active breath on exertion(Confirmed) 1retrosternal region with movement but no exertionally Allergies, Adverse Reactions, Alerts Substance Reaction Severity Status NKDA Active Medications cyclobenzaprine 10 mg oral tablet 10 mg=1 tab, PO, Daily, for spasm, # 30 tab, 0 Refill(s) Start Date: 04/21/14 Status: Ordered gabapentin 100 mg oral capsule 200 mg=2 cap, PO, TID, # 720 cap, 0 Refill(s) Start Date: 04/21/14 Status: Ordered ibuprofen 600 mg oral tablet 600 mg=1 tab, PO, Q6H, Pain, take with food, # 30 tab, 0 Refill(s) Special Instructions: take with food Start Date: 04/21/14 Status: Ordered Sodium Chloride 0.9% IV 500 mL 500 mL, Rate: 25 ml/hr, Infuse over: 20 hr, Route: IV, Dosing Weight 92.273 kg, Total Volume: 500, Start date: 04/21/14 12:03:00, Duration: 30 day, Stop date: 0 05/21/14 12:02:00 Start Date: 04/21/14 Stop Date: 04/21/14 Status: Discontinued Results URINE CHEM Most recent to 1 oldest [Reference Range]: U Preg [Negative] Negative (04/21/14 12:20 PM) Medications Administered During Your Visit No data available for this section Immunizations Vaccine Date Refusal Reason influenza virus vaccine, inactivated 03/08/14 Procedures Procedure Type Body Site Date of Procedure Related Diagnosis Esophagogastroduodenoscop y Laparoscopic adjustable 01/2014 gastric banding Operation1 1Lap band port removed due to infection on Mar 10, 2014 Social History Social History Type Response Substance Abuse Use: None Alcohol Use: Current, Type: Beer, Frequency: 1-2 times per week1 Smoking Status Former smoker, Type: Cigarettes, Exposure to Tobacco Smoke None, Cigarette Smoking Last 365 Days No, Reg Smoking Cessation Counseling No2 1occasional 2smoked as a teenager
--- OUTSIDE RECORDS SUMMARY | 2018-11-02 09:02 | XMS REPORT | Summary of Care ---
Author Author [facility] [place] Organization [facility] [place] Address Unknown Phone Unavailable Encounter GERALDO Bowers(CHARLES) [id number] Date(s): 10/28/18 - 10/28/18 [facility] [place] [address] [place], [place] [address] [phone] Discharge Disposition: Home or Self Care Attending Physician: Gamal Martinez MD Referring Physician: Gamal Martinez MD Vital Signs No data available for this section Problem List Condition Effective Dates Status Health Status Informant Acid Resolved reflux(Confirmed) Anxiety(Confirmed) Active Chest pain at Resolved rest(Confirmed)1 Dysphagia(Confirmed) Active Klebsiella(Confirmed 07/28/14 Active )2, 3 Muscle spasm of Active back(Confirmed)4 SOBOE - Shortness of Resolved breath on exertion(Confirmed) 1retrosternal region with movement but no exertionally 2ESBL (+), MDRO, URINE, 07/28/2014 3Problem added by Discern Expert. 4left lower rib cage also Allergies, Adverse Reactions, Alerts Substance Reaction Severity Status NKDA Active Adhesive Tape Active Medications No data available for this section Results No data available for this section Immunizations Given and Recorded Vaccine Date Status Refusal Reason influenza virus vaccine, inactivated 03/08/14 Given Procedures Procedure Date Related Diagnosis Body Site Status Laparoscopic adjustable gastric banding 01/2014 Completed CS - section1 Completed Endometrial ablation2 Completed Esophagogastroduodenoscopy Completed Operation3 Completed 1x4 2novasure 3Lap band port removed due to infection on Mar 10, 2014 Social History Social History Type Response Substance Abuse Use: None. Alcohol Current, Type Beer. Frequency: 1-2 times per month. Smoking Status Former smoker; Type: Cigarettes; Exposure to Tobacco Smoke None; Cigarette Smoking Last 365 Days No; Reg Smoking Cessation Counseling No; Total pack years: 1; Started at age: 14.0; Stopped at age: 16; 1 entered on: 02/27/18 1smoked as a teenager Assessment and Plan No data available for this section
--- OUTSIDE RECORDS SUMMARY | 2018-11-02 09:02 | XMS REPORT | Summary of Care ---
Author Organization Unknown Address Unknown Phone Unavailable Encounter HQ Elissa(CHARLES) [id number] Date(s): 03/06/14 - 03/10/14 [facility] [address] [address] Discharge Disposition: Home Physician Attending: Adrien Flaherty DO Physician Admitting: Adrien Flaherty DO Reason for Visit POSSIBLE LAP BAND INFECTION Vital Signs 1 2 3 Most recent to oldest [Reference Range]: 157.48 cm (03/06/14 4:31 PM) Height 98.636 kg (03/07/14 4:45 AM) 98.727 kg (03/07/14 4:04 AM) Current Weight 97.4 DegF (03/10/14 4:00 PM) 98.2 DegF (03/10/14 12:00 PM) 98.7 DegF (03/10/14 8:00 AM) Temperature Oral [96.4-99.1 DegF] 112 mmHg (03/10/14 4:00 PM) 120 mmHg (03/10/14 12:00 PM) 122 mmHg (03/10/14 8:00 AM) Systolic Blood Pressure [90-140 mmHg] 74 mmHg (03/10/14 4:00 PM) 82 mmHg (03/10/14 12:00 PM) 80 mmHg (03/10/14 8:00 AM) Diastolic Blood Pressure [60-90 mmHg] 18 BRMIN (03/10/14 4:00 PM) 18 BRMIN (03/10/14 12:00 PM) 18 BRMIN (03/10/14 8:00 AM) Respiratory Rate [14-20 BRMIN] 78 bpm (03/10/14 4:00 PM) 80 bpm (03/10/14 12:00 PM) 75 bpm (03/10/14 8:00 AM) Peripheral Pulse Rate [60-100 bpm] 92.273 kg (03/06/14 4:31 PM) Weight 37.21 m2 (03/06/14 4:31 PM) Body Mass Index Problem List Condition Effective Dates Status Health Status Informant Acid Active reflux(Confirmed) Anxiety(Confirmed) Active SOBOE - Shortness of Active breath on exertion(Confirmed) Allergies, Adverse Reactions, Alerts Substance Reaction Severity Status NKDA Active Medications acetaminophen 650 mg, 2 tab, Route: PO, Drug form: TAB, Q4H, Dosing Weight 92.273, kg, PRN Kenny n 1-3/Temp > 100.4 F, Start date: 03/07/14 2:20:00, Duration: 30 day, Stop date: 04/06/14 2:19:00 Notes: Do not exceed 4 gm/day. (Same as: Tylenol) Start Date: 03/07/14 Stop Date: 03/07/14 Status: Discontinued acetaminophen 650 mg, 1 supp, Route: NC, Drug form: SUPP, Q4H, Dosing Weight 92.273, kg, PRN F or Temp > 100.4 F, Start date: 03/07/14 15:37:00, Duration: 30 day, Stop date: 04/06/14 15:36:00 Notes: Max fztsfawkxqvtj=3003 mg/day (4 gm/day). (Same as: Tylenol) Start Date: 03/07/14 Stop Date: 03/10/14 Status: Discontinued acetaminophen 650 mg, 20.3 mL, Route: PO, Drug form: LIQ, Q4H, Dosing Weight 92.273, kg, PRN P ain Score 1-3, Start date: 03/07/14 15:37:00, Duration: 30 day, Stop date: 04/06 15:36:00 Notes: Max qlrbdrcdfwlnh=2603ww/day (4 gm/day). (Same as: Tylenol) Start Date: 03/07/14 Stop Date: 03/10/14 Status: Discontinued acetaminophen-codeine #3 2 tab, PO, PRN, for pain, 0 Refill(s) Start Date: 03/07/14 Stop Date: 03/10/14 Status: Discontinued cefepime 1 gm, Route: IVPB, ONCE, Dosing Weight 92.273, kg, Priority: STAT, Start date: 05/08/13 0:03:00, Stop date: 03/07/14 0:03:00 Start Date: 03/07/14 Stop Date: 03/07/14 Status: Completed cefepime + Sodium Chloride 0.9% IV 100 mL 1 gm, Route: IVPB, [id number], Dosing Weight 92.273, kg, (CrCl 30 - 49 ml/min), Sta rt date: 03/07/14 12:00:00, Duration: 30 day, Stop date: 04/06/14 0:00:00 Notes: (Same As: Maxipime) Start Date: 03/07/14 Stop Date: 03/10/14 Status: Discontinued docusate 100 mg, 1 cap, Route: PO, Drug form: CAP, BID, Dosing Weight 92.273, kg, PRN Con stipation, Start date: 03/07/14 2:20:00, Duration: 30 day, Stop date: 04/06/14 2 :19:00 Notes: (Same as: Colace) (Do Not Crush) Start Date: 03/07/14 Stop Date: 03/10/14 Status: Discontinued famotidine 20 mg, 2 mL, Route: IVP, Drug form: INJ, Q12H, Dosing Weight 92.273, kg, Start d ate: 03/07/14 21:00:00, Duration: 30 day, Stop date: 04/06/14 9:00:00 Notes: (Same as: Pepcid)Can be dilute in 5-10cc NS IVP: Slow IV push over at le ast 2 minutes. Start Date: 03/07/14 Stop Date: 03/08/14 Status: Discontinued Flagyl 500 mg, 100 mL, Route: IVPB, Drug form: INJ, ONCE, Dosing Weight 92.273, kg, Priscilla ority: STAT, Start date: 03/07/14 0:03:00, Stop date: 03/07/14 0:03:00 Notes: (Same as: Flagyl) Avoid alcohol. Start Date: 03/07/14 Stop Date: 03/07/14 Status: Completed flumazenil 0.1 mg, 1 mL, Route: IVP, Drug form: INJ, Q5Min, Dosing Weight 92.273, kg, PRN O ther -See Comment, Start date: 03/07/14 10:53:00, Duration: 30 day, Stop date: 0 04/06/14 10:52:00 Notes: (Same as: Romazicon) Start Date: 03/07/14 Stop Date: 03/10/14 Status: Discontinued flumazenil 0.2 mg, 2 mL, Route: IVP, Drug form: INJ, PRN, Dosing Weight 92.273, kg, PRN Oth er -See Comment, Start date: 03/07/14 10:53:00, Duration: 1 doses or times, Stop date: Limited # of times Notes: (Same as: Romazicon) Start Date: 03/07/14 Stop Date: 03/10/14 Status: Discontinued Fluzone Quadrivalent [id number] 0.5 mL, Route: IM, Drug Form: SUSP, Daily, Start date: 03/08/14 10:00:00, Durati on: 1 doses or times, Stop date: 03/08/14 10:00:00 Notes: (Same as: Fluzone Quadrivalent) Start Date: 03/08/14 Stop Date: 03/08/14 Status: Completed influenza virus vaccine, inactivated 0.5 mL, Route: IM, Drug Form: SUSP, Daily, Start date: 03/07/14 9:00:00, Duratio n: 1 doses or times, Stop date: 03/07/14 9:00:00 Notes: (Same as: Fluzone Quadrivalent) Start Date: 03/07/14 Stop Date: 03/08/14 Status: Deleted ketorolac 30 mg, 1 mL, Route: IVP, Drug form: INJ, Q6H, Dosing Weight 92.273, kg, Start da te: 03/07/14 18:00:00, Duration: 6 doses or times, Stop date: 03/09/14 0:00:00 Notes: (Same as:Toradol) IV bolus must be given >15 seconds. Give IM administration slowly and deeply into the muscle. Not for use > 4 days Start Date: 03/07/14 Stop Date: 03/09/14 Status: Completed Lactated Ringers Injection IV 1,000 mL 1,000 mL, Rate: 125 ml/hr, Infuse over: 8 hr, Route: IV, Dosing Weight 92.273 kg , Total Volume: 1,000, Start date: 03/07/14 15:37:00, Duration: 30 day, Stop derrick e: 04/06/14 15:36:00 Start Date: 03/07/14 Stop Date: 03/09/14 Status: Discontinued Lactated Ringers IV 500 mL 500 mL, Rate: 40 ml/hr, Infuse over: 12.5 hr, Route: IV, Dosing Weight 92.273 kg , Total Volume: 500, Start date: 03/07/14 9:27:00, Duration: 1 day, Stop date: 05/09/13 9:26:00 Start Date: 03/07/14 Stop Date: 03/07/14 Status: Discontinued Levaquin 500 mg oral tablet 500 mg=1 tab, PO, Q24H, # 14 tab, 0 Refill(s) Start Date: 03/10/14 Stop Date: 03/24/14 Status: Ordered metoclopramide 10 mg, 2 mL, Route: IVP, Drug form: INJ, Q8H, Dosing Weight 92.273, kg, Start da te: 03/07/14 16:00:00, Duration: 30 day, Stop date: 04/06/14 8:00:00 Notes: (Same as: Reglan) Start Date: 03/07/14 Stop Date: 03/10/14 Status: Discontinued metoprolol 2.5 mg, 2.5 mL, Route: IVP, Drug form: INJ, Q6H, Dosing Weight 92.273, kg, PRN E levated BP, Systolic BP >180 or Diastolic BP >100, Start date: 03/07/14 15:37:00, Duration: 30 day, Stop date: 04/06/14 15:36:00 Notes: (Same as: Lopressor)Push over 2 minutes Start Date: 03/07/14 Stop Date: 03/10/14 Status: Discontinued morphine Sulfate 4 mg, Route: IVP, Q4H, Dosing Weight 92.273, kg, PRN Pain, Start date: 03/07/14 11:26:00, Duration: 30 day, Stop date: 04/06/14 11:25:00 Start Date: 03/07/14 Stop Date: 03/07/14 Status: Discontinued morphine Sulfate 2 mg, Route: IVP, Q4H, Dosing Weight 92.273, kg, PRN Pain, Start date: 03/07/14 11:26:00, Duration: 30 day, Stop date: 04/06/14 11:25:00 Start Date: 03/07/14 Stop Date: 03/07/14 Status: Discontinued morphine Sulfate 4 mg, 2 mL, Route: IVP, Drug form: INJ, Q3H, Dosing Weight 92.273, kg, PRN Pain Score 7-10, Start date: 03/07/14 11:32:00, Stop date: 04/06/14 11:24:00 Notes: (Same as:MORPhine Sulfate) Start Date: 03/07/14 Stop Date: 03/10/14 Status: Discontinued morphine Sulfate 4 mg, Route: IVP, Drug form: INJ, ONCE, Dosing Weight 92.273, kg, Priority: STAT , Start date: 03/06/14 23:04:00, Stop date: 03/06/14 23:04:00 Start Date: 03/06/14 Stop Date: 03/06/14 Status: Completed morphine Sulfate 2 mg, 1 mL, Route: IVP, Drug form: INJ, Q3H, Dosing Weight 92.273, kg, PRN Pain Score 4-6, Start date: 03/07/14 2:20:00, Duration: 30 day, Stop date: 04/06/14 2 :19:00 Notes: (Same as:MORPhine Sulfate) Start Date: 03/07/14 Stop Date: 03/10/14 Status: Discontinued morphine Sulfate 4 mg, Route: IVP, Drug form: INJ, ONCE, Dosing Weight 92.273, kg, Priority: STAT , Start date: 03/06/14 20:25:00, Stop date: 03/06/14 20:25:00 Start Date: 03/06/14 Stop Date: 03/06/14 Status: Completed naloxone 0.1 mg, 0.25 mL, Route: IVP, Drug form: INJ, Q2MIN, Dosing Weight 92.273, kg, NC N Narcotic Reversal, Start date: 03/07/14 10:53:00, Duration: 4 doses or times, Stop date: Limited # of times Notes: Same as Narcan Start Date: 03/07/14 Stop Date: 03/10/14 Status: Discontinued normal saline 0.9% IV 1000 mL 1,000 mL, Rate: 1,000 ml/hr, Infuse over: 1 hr, Route: IV, Dosing Weight 92.273 kg, Total Volume: 1,000, Priority: STAT, Start date: 03/06/14 19:15:00, Duration : 1 doses or times, Stop date: 03/06/14 20:14:00 Start Date: 03/06/14 Stop Date: 03/06/14 Status: Completed ondansetron 4 mg, 2 mL, Route: IVP, Drug form: INJ, Q8H, Dosing Weight 92.273, kg, PRN Nause a & Vomiting, Start date: 03/07/14 2:20:00, Duration: 30 day, Stop date: 04/06/14 2:19:00 Notes: (Same as: Zofran) Start Date: 03/07/14 Stop Date: 03/07/14 Status: Discontinued ondansetron 4 mg, 2 mL, Route: IVP, Drug form: INJ, Q12H, Dosing Weight 92.273, kg, PRN Naus ea & Vomiting, Start date: 03/07/14 15:37:00, Duration: 30 day, Stop date: 04/06/14 15:36:00 Notes: (Same as: Zofran) Start Date: 03/07/14 Stop Date: 03/10/14 Status: Discontinued Pepcid 20 mg, 1 tab, Route: PO, Drug form: TAB, Q12H, Start date: 03/08/14 21:00:00, Du ration: 30 day, Stop date: 04/07/14 9:00:00 Notes: (Same as: Pepcid) Start Date: 03/08/14 Stop Date: 03/10/14 Status: Discontinued Pepcid 20 mg oral tablet 20 mg, Route: IV, ONCE, Dosing Weight 92.273, kg, Start date: 03/06/14 19:15:00, Stop date: 03/06/14 19:15:00 Start Date: 03/06/14 Stop Date: 03/06/14 Status: Completed promethazine 12.5 mg, 0.5 mL, Route: IM, Drug form: INJ, Q4H, Dosing Weight 92.273, kg, PRN N ausea & Vomiting, Start date: 03/07/14 15:37:00, Duration: 30 day, Stop date: 04/06/14 15:36:00 Notes: Do not give IV push. (Same as: Phenergan) Start Date: 03/07/14 Stop Date: 03/10/14 Status: Discontinued Saline Flush 0.9% 10 ml, Route: IVP, Drug Form: INJ, Dosing Weight 92.273, kg, PRN, PRN Line Flush , Start date: 03/07/14 2:20:00, Duration: 30 day, Stop date: 04/06/14 2:19:00 Notes: (Same as: BD Posiflush) Start Date: 03/07/14 Stop Date: 03/10/14 Status: Discontinued Sodium Chloride 0.9% IV 1,000 mL 1,000 mL, Rate: 100 ml/hr, Infuse over: 10 hr, Route: IV, Dosing Weight 92.273 k g, Total Volume: 1,000, Start date: 03/07/14 2:20:00, Duration: 30 day, Stop derrick e: 04/06/14 2:19:00 Start Date: 03/07/14 Stop Date: 03/07/14 Status: Discontinued Sodium Chloride 0.9% IV 500 mL 500 mL, Rate: 25 ml/hr, Infuse over: 20 hr, Route: IV, Dosing Weight 92.273 kg, Total Volume: 500, Start date: 03/07/14 9:27:00, Duration: 30 day, Stop date: 9:26:00 Start Date: 03/07/14 Stop Date: 03/07/14 Status: Discontinued Tylenol with Codeine #3 oral tablet 1 - 2 tab, PO, Q6H, Pain, # 24 tab, 0 Refill(s) Start Date: 03/10/14 Status: Ordered vancomycin 1 gm, 200 mL, Route: IVPB, Drug form: INJ, [id number], Dosing Weight 92.273, kg, St art date: 03/07/14 13:30:00, Duration: 30 day, Stop date: 04/06/14 1:30:00 Start Date: 03/07/14 Stop Date: 03/10/14 Status: Discontinued vancomycin 1,750 mg, 500 mL, Route: IVPB, Drug form: SOLN, ONCE, Dosing Weight 92.273, kg, Priority: STAT, Start date: 03/07/14 0:03:00, Stop date: 03/07/14 0:03:00 Notes: Same as: Marianne Start Date: 03/07/14 Stop Date: 03/07/14 Status: Completed Zofran 4 mg, Route: IVP, Drug form: INJ, ONCE, Dosing Weight 92.273, kg, Priority: STAT , Start date: 03/06/14 19:15:00, Stop date: 03/06/14 19:15:00 Start Date: 03/06/14 Stop Date: 03/06/14 Status: Completed Results ELECTROLYTES 1 2 3 Most recent to oldest [Reference Range]: 138 mEq/L (03/09/14 4:18 AM) 138 mEq/L (03/07/14 10:49 AM) 140 mEq/L (03/07/14 5:38 AM) Sodium Lvl [135-145 mEq/L] 3.8 mEq/L (03/09/14 4:18 AM) 3.7 mEq/L (03/07/14 10:49 AM) 3.4 mEq/L *LOW* (03/07/14 5:38 AM) Potassium Lvl [3.5-5.1 mEq/L] 102 mEq/L (03/09/14 4:18 AM) 106 mEq/L (03/07/14 10:49 AM) 107 mEq/L (03/07/14 5:38 AM) Chloride Lvl [95-109 mEq/L] 26 mEq/L (03/09/14 4:18 AM) 23 mEq/L *LOW* (03/07/14 10:49 AM) 24 mEq/L (03/07/14 5:38 AM) CO2 [24-32 mEq/L] 13.8 mEq/L (03/09/14 4:18 AM) 12.7 mEq/L (03/07/14 10:49 AM) 12.4 mEq/L (03/07/14 5:38 AM) AGAP [10.0-20.0 mEq/L] CHEM PANEL 1 2 3 Most recent to oldest [Reference Range]: 0.7 mg/dL (03/09/14 4:18 AM) 0.6 mg/dL (03/07/14 10:49 AM) 0.7 mg/dL (03/07/14 5:38 AM) Creatinine Lvl [0.5-1.4 mg/dL] 105 mL/min/1.73m2 1 *NA* (03/09/14 4:18 AM) 110 mL/min/1.73m2 2 *NA* (03/07/14 10:49 AM) 105 mL/min/1.73m2 3 *NA* (03/07/14 5:38 AM) eGFR 4 mg/dL *LOW* (03/09/14 4:18 AM) 5 mg/dL *LOW* (03/07/14 10:49 AM) 7 mg/dL (03/07/14 5:38 AM) BUN [7-22 mg/dL] 8 (03/07/14 10:49 AM) 10 (03/07/14 5:38 AM) 10 (03/06/14 7:05 PM) B/C Ratio [6-25] 133 mg/dL 4 *HI* (03/09/14 4:18 AM) 93 mg/dL 5 (03/07/14 10:49 AM) 111 mg/dL 6 *HI* (03/07/14 5:38 AM) Glucose Lvl [70-99 mg/dL] 6.6 g/dL (03/07/14 10:49 AM) 6.5 g/dL (03/07/14 5:38 AM) 8.4 g/dL (03/06/14 7:05 PM) Total Protein [6.4-8.4 g/dL] 3.0 g/dL *LOW* (03/07/14 10:49 AM) 2.8 g/dL *LOW* (03/07/14 5:38 AM) 3.8 g/dL (03/06/14 7:05 PM) Albumin Lvl [3.5-5.0 g/dL] 3.6 g/dL (03/07/14 10:49 AM) 3.7 g/dL (03/07/14 5:38 AM) 4.6 g/dL *HI* (03/06/14 7:05 PM) Globulin [2.0-4.0 g/dL] 0.8 (03/07/14 10:49 AM) 0.8 (03/07/14 5:38 AM) 0.8 (03/06/14 7:05 PM) A/G Ratio [0.7-1.6] 8.4 mg/dL *LOW* (03/09/14 4:18 AM) 8.4 mg/dL *LOW* (03/07/14 10:49 AM) 8.4 mg/dL *LOW* (03/07/14 5:38 AM) Calcium Lvl [8.5-10.5 mg/dL] 3.1 mg/dL (03/07/14 5:38 AM) Phosphorus [2.5-4.5 mg/dL] 2.1 mg/dL (03/07/14 10:49 AM) 2.0 mg/dL (03/07/14 5:38 AM) Magnesium Lvl [1.8-2.4 mg/dL] 27 unit/L (03/07/14 10:49 AM) 22 unit/L (03/07/14 5:38 AM) 29 unit/L (03/06/14 7:05 PM) ALT [0-65 unit/L] 17 unit/L (03/07/14 10:49 AM) 17 unit/L (03/07/14 5:38 AM) 20 unit/L (03/06/14 7:05 PM) AST [0-37 unit/L] 97 unit/L (03/07/14 10:49 AM) 96 unit/L (03/07/14 5:38 AM) 129 unit/L (03/06/14 7:05 PM) Alk Phos [39-136 unit/L] 0.5 mg/dL (03/07/14 10:49 AM) 0.4 mg/dL (03/07/14 5:38 AM) 0.5 mg/dL (03/06/14 7:05 PM) Bili Total [0.2-1.3 mg/dL] 45 unit/L (03/06/14 7:05 PM) Amylase Lvl [25-115 unit/L] 116 unit/L (03/06/14 7:05 PM) Lipase Lvl [73-393 unit/L] 1.0 mMol/L (03/06/14 10:29 PM) Lactic Acid Lvl [0.5-2.2 mMol/L] 1Result Comment: The eGFR is calculated using [...] be mul tiplied by the estimated BMI. 2Result Comment: The eGFR is calculated using the [...] be mul tiplied by the estimated BMI. 3Result Comment: The eGFR is calculated using the [...] be mul tiplied by the estimated BMI. 4Interpretive Data: Adult reference range values reflect the clinical guidelines of the [place] [employer]. 5Interpretive Data: Adult reference range values reflect the clinical guidelines of the [place] [employer]. 6Interpretive Data: Adult reference range values reflect the clinical guidelines of the [place] [employer]. ANEMIA STUDY 1 2 3 Most recent to oldest [Reference Range]: 753 pg/mL (03/07/14 10:49 AM) Vitamin B12 Lvl [254-1320 pg/mL] 186 mg/dL *LOW* (03/07/14 10:49 AM) Transferrin [212-360 mg/dL] THYROID PANEL 1 2 3 Most recent to oldest [Reference Range]: 34 % (03/07/14 10:49 AM) T3 Uptake [31-39 %] 12.5 ug/dl (03/07/14 10:49 AM) T4 [4.7-13.3 ug/dl] 4.2 *NA* (03/07/14 10:49 AM) FTI 0.744 uIU/mL (03/07/14 10:49 AM) TSH [0.360-3.740 uIU/mL] URINE CHEM 1 2 3 Most recent to oldest [Reference Range]: Negative (03/06/14 7:15 PM) U Preg [Negative] URINE AND STOOL 1 2 3 Most recent to oldest [Reference Range]: Clear (03/06/14 7:15 PM) UA Turbidity [Clear] Yellow *NA* (03/06/14 7:15 PM) UA Color [Yellow] 5.0 (03/06/14 7:15 PM) UA pH [5.0-8.0] 1.032 *HI* (03/06/14 7:15 PM) UA Spec Grav [<=1.030] Negative mg/dL *NA* (03/06/14 7:15 PM) UA Glucose [Negative mg/dL] Negative (03/06/14 7:15 PM) UA Blood [Negative] Negative mg/dL *NA* (03/06/14 7:15 PM) UA Ketones [Negative mg/dL] Negative mg/dL (03/06/14 7:15 PM) UA Protein [Negative mg/dL] <=1.0 mg/dL *NA* (03/06/14 7:15 PM) UA Urobilinogen [0.1-1.0 mg/dL] Negative *NA* (03/06/14 7:15 PM) UA Bili [Negative] Negative (03/06/14 7:15 PM) UA Leuk Est [Negative] Negative (03/06/14 7:15 PM) UA Nitrite [Negative] <1 /HPF (03/06/14 7:15 PM) UA WBC [0-5 /HPF] 2 /HPF (03/06/14 7:15 PM) UA RBC [0-2 /HPF] Few /LPF *NA* (03/06/14 7:15 PM) UA Sq Epi [Few /LPF] Many /LPF *ABN* (03/06/14 7:15 PM) UA Mucus [None Seen /LPF] HEMATOLOGY 1 2 3 Most recent to oldest [Reference Range]: 8.2 K/CMM (03/09/14 4:18 AM) 7.9 K/CMM (03/07/14 10:49 AM) 9.3 K/CMM (03/07/14 5:38 AM) WBC [3.7-10.4 K/CMM] 3.26 M/CMM *LOW* (03/09/14 4:18 AM) 3.64 M/CMM *LOW* (03/07/14 10:49 AM) 3.57 M/CMM *LOW* (03/07/14 5:38 AM) RBC [4.20-5.40 M/CMM] 9.7 g/dL *LOW* (03/09/14 4:18 AM) 10.8 g/dL *LOW* (03/07/14 10:49 AM) 10.3 g/dL *LOW* (03/07/14 5:38 AM) Hgb [12.0-16.0 g/dL] 28.3 % *LOW* (03/09/14 4:18 AM) 31.7 % *LOW* (03/07/14 10:49 AM) 30.6 % *LOW* (03/07/14 5:38 AM) Hct [36.0-48.0 %] 86.8 fL (03/09/14 4:18 AM) 87.0 fL (03/07/14 10:49 AM) 85.7 fL (03/07/14 5:38 AM) MCV [80.0-98.0 fL] 29.8 pg (03/09/14 4:18 AM) 29.7 pg (03/07/14 10:49 AM) 28.9 pg (03/07/14 5:38 AM) MCH [27.0-31.0 pg] 34.4 g/dL (03/09/14 4:18 AM) 34.1 g/dL (03/07/14 10:49 AM) 33.8 g/dL (03/07/14 5:38 AM) MCHC [32.0-36.0 g/dL] 13.9 % (03/09/14 4:18 AM) 13.5 % (03/07/14 10:49 AM) 13.5 % (03/07/14 5:38 AM) RDW [11.5-14.5 %] 278 K/CMM (03/09/14 4:18 AM) 308 K/CMM (03/07/14 10:49 AM) 333 K/CMM (03/07/14 5:38 AM) Platelet [133-450 K/CMM] 10.1 fL (03/09/14 4:18 AM) 9.1 fL (03/07/14 10:49 AM) 9.2 fL (03/07/14 5:38 AM) MPV [7.4-10.4 fL] 82.2 % *HI* (03/09/14 4:18 AM) 75.4 % *HI* (03/07/14 10:49 AM) 73.0 % (03/07/14 5:38 AM) Segs [45.0-75.0 %] 10.4 % *LOW* (03/09/14 4:18 AM) 14.8 % *LOW* (03/07/14 10:49 AM) 18.6 % *LOW* (03/07/14 5:38 AM) Lymphocytes [20.0-40.0 %] 7.0 % (03/09/14 4:18 AM) 8.0 % (03/07/14 10:49 AM) 6.8 % (03/07/14 5:38 AM) Monocytes [2.0-12.0 %] 0.2 % (03/09/14 4:18 AM) 1.5 % (03/07/14 10:49 AM) 1.3 % (03/07/14 5:38 AM) Eosinophils [0.0-4.0 %] 0.2 % (03/09/14 4:18 AM) 0.3 % (03/07/14 10:49 AM) 0.3 % (03/07/14 5:38 AM) Basophils [0.0-1.0 %] 6.7 K/CMM (03/09/14 4:18 AM) 6.0 K/CMM (03/07/14 10:49 AM) 6.8 K/CMM (03/07/14 5:38 AM) Segs-Bands # [1.5-8.1 K/CMM] 0.8 K/CMM *LOW* (03/09/14 4:18 AM) 1.2 K/CMM (03/07/14 10:49 AM) 1.7 K/CMM (03/07/14 5:38 AM) Lymphocytes # [1.0-5.5 K/CMM] 0.6 K/CMM (03/09/14 4:18 AM) 0.6 K/CMM (03/07/14 10:49 AM) 0.6 K/CMM (03/07/14 5:38 AM) Monocytes # [0.0-0.8 K/CMM] 0.1 K/CMM (03/07/14 10:49 AM) 0.1 K/CMM (03/07/14 5:38 AM) 0.1 K/CMM (03/06/14 7:05 PM) Eosinophils # [0.0-0.5 K/CMM] 16.4 seconds *HI* (03/07/14 5:38 AM) PT [12.0-14.7 seconds] 1.31 7 *HI* (03/07/14 5:38 AM) INR [0.85-1.17] 36.0 seconds 8 *HI* (03/07/14 5:38 AM) PTT [22.9-35.8 seconds] 7Interpretive Data: RECOMMENDED RANGES FOR PROTIME INR: 2.0-3.0 for most medical and surgical thromboembolic states. 2.5-3.5 for artificial heart valves and recurrent embolism. INR SHOULD BE USED ONLY FOR PATIENTS ON STABLE ANTICOAGULANT THERAPY. 8Interpretive Data: Heparin Therapeutic Range: 57 - 92 Seconds Medications Administered During Your Visit No data available for this section Immunizations Vaccine Date Refusal Reason influenza virus vaccine, inactivated 03/08/14 Social History Social History Type Response Substance Abuse Use: None Alcohol Use: Current1 Smoking Status Former smoker, Type: Cigarettes, Exposure to Tobacco Smoke None, Cigarette Smoking Last 365 Days No, Reg Smoking Cessation Counseling No2 1occasional 2smoked as a teenager Assessment and Plan Extracted from: Title: Clinical Document Author: Adrien Flaherty DO Date: 03/10/14 Progress Daily [facility] Completed: Feb, 14:03 by Adrien Flaherty DO RM: 235 - 2W, SE [id number] STALLINGS [id number] (: 1970) F Attending: Adrien Flaherty DOPhone: Service: Internal Medicine Reason for Admission: POSSIBLE LAP BAND INFECTION Working DRG: Other digestive system O.R. procedures w/o CC/CHCF Code status: Full Code [Ordered]Current diet: Isolation: None Documented Allergies: NKDA SUBJECTIVE Patient seen and examined. Events noted overnight. Labs/Images reviewed doing ok, no other issues OBJECTIVE Labs (Last four charted values) WBC 8.2(MAR 09)7.9(MAR 07)9.3(MAR 07)H 11.7(MAR 06) Hgb L 9.7(MAR 09)L 10.8(MAR 07)L 10.3(MAR 07)12.6(MAR 06) Hct L 28.3(MAR 09)L 31.7(MAR 07)L 30.6(MAR 07)37.8(MAR 06) Plt 278(MAR 09)308(MAR 07)333(MAR 07)404(MAR 06) Na 138(MAR 09)138(MAR 07)140(MAR 07)138(MAR 06) K 3.8(MAR 09)3.7(MAR 07)L 3.4(MAR 07)3.8(MAR 06) CO2 26(MAR 09)L 23(MAR 07)24(MAR 07)26(MAR 06) Cl 102(MAR 09)106(MAR 07)107(MAR 07)101(MAR 06) Cr 0.7(MAR 09)0.6(MAR 07)0.7(MAR 07)0.7(MAR 06) BUN L 4(MAR 09)L 5(MAR 07)7(MAR 07)7(MAR 06) Glucose Random H 133(MAR 09)93(MAR 07)H 111(MAR 07)88(MAR 06) Mg 2.1(MAR 07)2.0(MAR 07) Phos 3.1(MAR 07) Ca L 8.4(MAR 09)L 8.4(MAR 07)L 8.4(MAR 07)9.8(MAR 06) PT H 16.4(MAR 07) INR H 1.31(MAR 07) PTT H 36.0(MAR 07) ASSESSMENT & EXAM Gen: NAD, Alert, Awake HEENT: NC/AT, PERRLA, oral area clear and moist Neck: No LAD, No JVD, trachea midline Chest: CTAB, no c/w/r CV: RRR, S1, S2 GI: +BS, S, NT, ND, incision site covered with dressings, No organomegaly Ext: no c/c/e Neuro: AOx3, no gross deficits noted Skin: No notable rashes PLAN & TREATMENT will d/c on 2 weeks of PO abx wound care daily f/uw [facility] Dr. Resendiz in 1 week ordered adn set up DIAGNOSES & PROBLEMS 1. Laparoscopic band port infection with possible catheter infection. 2. Leukocytosis 3. Dehydration. Ready for Discharge (Yes/No)? Bright still necessary (Yes/No): Line still necessary (Yes/No): (no lab data in past 24 hours) VitalsTmp(F)[id number] 03/10 08:[id number]--- 03/10 03:[id number]/[id number]--- 03/09 23:[id number]--- 03/09 19:[id number]--- 03/09 16:[id number]--- 24 Hr Tmax: 99.5F (37.50c) at 03/09 19:24Vital Signs are the last 5 in the past 48 hours. DateWt(kg)Wt(lb)Ht(cm)Ht(in)Method 03/07 98.64 217.00Measured 03/06 (initial) 92.27 203.00Measured 03/06157.48 62.00Stated I&ORecordInOutBal 1224hr Tot 606 0 606 1124hr Tot 1340 0 1340 Medications (16) Active Scheduled Meds (4): 03/07/14 cefepime + Sodium Chloride 0.9% IV 100 mL 1 gm IVPB [id number] 200 ml/hr 03/08/14 famotidine (Pepcid) 20 mg PO Q12H 03/07/14 metoclopramide 10 mg IVP Q8H 03/07/14 vancomycin 1 gm IVPB [id number] 200 ml/hr Unscheduled Meds: None PRN Meds (12): 03/07/14 acetaminophen 650 mg PO Q4H 03/07/14 acetaminophen 650 mg NC Q4H 03/07/14 docusate 100 mg PO BID [...]
--- OUTSIDE RECORDS SUMMARY | 2018-11-02 09:02 | XMS REPORT | Summary of Care ---
Author Organization Unknown Address Unknown Phone Unavailable Encounter GERALDO Bowers(CHARLES) [id number] Date(s): 01/03/14 - 01/03/14 [facility] [address] Discharge Disposition: Home Physician Attending: Bacilio Resendiz MD Physician_Referring: Bacilio Resendiz MD Reason for Visit 530.81 Vital Signs 1 2 3 Most recent to oldest [Reference Range]: 154.94 cm (12/29/13 4:00 PM) Height 98.2 DegF (12/29/13 4:07 PM) Temperature Oral [96.4-99.1 DegF] 129 mmHg (01/03/14 8:36 AM) 121 mmHg (01/03/14 8:26 AM) 129 mmHg (01/03/14 8:16 AM) Systolic Blood Pressure [90-140 mmHg] 62 mmHg (01/03/14 8:36 AM) 63 mmHg (01/03/14 8:26 AM) 62 mmHg (01/03/14 8:16 AM) Diastolic Blood Pressure [60-90 mmHg] 18 BRMIN (01/03/14 8:36 AM) 18 BRMIN (01/03/14 8:26 AM) 18 BRMIN (01/03/14 8:16 AM) Respiratory Rate [14-20 BRMIN] 81 bpm (12/29/13 4:07 PM) Peripheral Pulse Rate [60-100 bpm] 106.364 kg (12/29/13 4:00 PM) Weight 44.31 m2 (12/29/13 4:00 PM) Body Mass Index Problem List Condition Effective Dates Status Health Status Informant Acid Active reflux(Confirmed) Anxiety(Confirmed) Active SOBOE - Shortness of Active breath on exertion(Confirmed) Allergies, Adverse Reactions, Alerts Substance Reaction Severity Status NKDA Active Medications Fish Oil 1000 mg oral capsule 1,000 mg=1 cap, PO, Daily, 0 Refill(s) Start Date: 12/29/13 Status: Ordered flumazenil 0.2 mg, 2 mL, Route: IVP, Drug form: INJ, PRN, Dosing Weight 106.364, kg, PRN Ot her -See Comment, Start date: 01/03/14 8:37:00, Duration: 1 doses or times, Stop date: Limited # of times Notes: (Same as: Romazicon) Start Date: 01/03/14 Stop Date: 01/03/14 Status: Discontinued flumazenil 0.1 mg, 1 mL, Route: IVP, Drug form: INJ, Q5Min, Dosing Weight 106.364, kg, PRN Other -See Comment, Start date: 01/03/14 8:37:00, Duration: 30 day, Stop date: 04/04/13 7:36:00 Notes: (Same as: Romazicon) Start Date: 01/03/14 Stop Date: 01/03/14 Status: Discontinued Lactated Ringers IV 500 mL 500 mL, Rate: 40 ml/hr, Infuse over: 12.5 hr, Route: IV, Dosing Weight 106.364 k g, Total Volume: 500, Start date: 01/03/14 5:30:00, Duration: 30 day, Stop date: 02/02/14 5:29:00 Start Date: 01/03/14 Stop Date: 01/03/14 Status: Discontinued naloxone 0.1 mg, 0.25 mL, Route: IVP, Drug form: INJ, Q2MIN, Dosing Weight 106.364, kg, P RN Narcotic Reversal, Start date: 01/03/14 8:37:00, Duration: 4 doses or times, Stop date: Limited # of times Notes: Same as Narcan Start Date: 01/03/14 Stop Date: 01/03/14 Status: Discontinued pantoprazole 40 mg oral enteric coated tablet 40 mg=1 tab, PO, Daily, # 30 tab, 0 Refill(s) Start Date: 12/29/13 Status: Ordered sertraline 100 mg oral tablet 100 mg=1 tab, PO, Daily, # 30 tab, 0 Refill(s) Start Date: 12/29/13 Status: Ordered Sodium Chloride 0.9% IV 1,000 mL 1,000 mL, Rate: 25 ml/hr, Infuse over: 40 hr, Route: IV, Dosing Weight 106.364 k g, Total Volume: 1,000, Start date: 01/03/14 7:43:00, Duration: 30 day, Stop derrick e: 02/02/14 7:42:00 Start Date: 01/03/14 Stop Date: 01/03/14 Status: Discontinued Vitamin D3 PO, Daily, 0 Refill(s) Start Date: 12/29/13 Status: Ordered Medications Administered During Your Visit No data available for this section Immunizations No data available for this section Procedures Procedure Type Body Site Date of Procedure Related Diagnosis CS - section1 Endometrial ablation2 1x4 2novasure Social History Social History Type Response Alcohol Use: Current1 Smoking Status Former smoker, Exposure to Tobacco Smoke None, Cigarette Smoking Last 365 Days No, Reg Smoking Cessation Counseling No2 1occasional 2smoked as a teenager
--- OUTSIDE RECORDS SUMMARY | 2018-11-02 09:02 | XMS REPORT | Summary of Care ---
Author Author [facility] Organization [facility] Address Unknown Phone Unavailable Encounter GERALDO Bowers(FIN) [id number] Date(s): 04/19/18 - 04/19/18 [facility] [address] [place] [address]- Discharge Disposition: Home or Self Care Attending Physician: Jasmin Zamorano MD Referring Physician: Jasmin Zamorano MD Vital Signs No data available for [...]
--- OUTSIDE RECORDS SUMMARY | 2018-11-02 09:02 | XMS REPORT | Summary of Care ---
Author Organization Unknown Address Unknown Phone Unavailable Encounter HQ Elissa(FIN) [id number] Date(s): 05/04/14 - 05/04/14 [facility] [address] [address] Discharge Disposition: Home Physician Attending: Christian Crump MD Reason for Visit 789.00 Problem List Condition Effective Dates Status Health Status Informant Acid Resolved reflux(Confirmed) Anxiety(Confirmed) Active Chest pain at Resolved rest(Confirmed)1 Dysphagia(Confirmed) Active Muscle spasm of Active back(Confirmed)2 SOBOE - Shortness of Resolved breath on exertion(Confirmed) 1retrosternal region with movement but no exertionally 2left lower rib cage also Allergies, Adverse Reactions, Alerts Substance Reaction Severity Status Adhesive Tape Active NKDA Active Medications No data available for this section Results ELECTROLYTES Most recent to 1 oldest [Reference Range]: Sodium Lvl [135-145 141 mEq/L mEq/L] (05/04/14 12:06 PM) Potassium Lvl 3.4 mEq/L [3.5-5.1 mEq/L] *LOW* (05/04/14 12:06 PM) Chloride Lvl [95-109 104 mEq/L mEq/L] (05/04/14 12:06 PM) CO2 [24-32 mEq/L] 29 mEq/L (05/04/14 12:06 PM) AGAP [10.0-20.0 11.4 mEq/L mEq/L] (05/04/14 12:06 PM) CHEM PANEL Most recent to 1 oldest [Reference Range]: Creatinine Lvl 6.0 mg/dL [0.5-1.4 mg/dL] *HI* (05/04/14 12:06 PM) eGFR 8 mL/min/1.73m2 1 *NA* (05/04/14 12:06 PM) BUN [7-22 mg/dL] 42 mg/dL *HI* (05/04/14 12:06 PM) Glucose Lvl [70-99 124 mg/dL 2 mg/dL] *HI* (05/04/14 12:06 PM) Calcium Lvl 8.8 mg/dL [8.5-10.5 mg/dL] (05/04/14 12:06 PM) 1Result Comment: The eGFR is calculated using [...] values reflect the clinical guidelines of the [place] [employer]. Medications Administered During Your Visit No data available for this section Immunizations Vaccine Date Refusal Reason influenza virus vaccine, inactivated 03/08/14 Social History Social History Type Response Substance Abuse Use: None Alcohol Use: Current, Type: Beer, Frequency: 1-2 times per month Smoking Status Former smoker, Type: Cigarettes, Exposure to Tobacco Smoke None, Cigarette Smoking Last 365 Days No, Reg Smoking Cessation Counseling No1 1smoked as a teenager
--- OUTSIDE RECORDS SUMMARY | 2018-11-02 09:02 | XMS REPORT | Summary of Care ---
Author Organization Unknown Address Unknown Phone Unavailable Encounter HQ Nakul_tony(CHARLES) [id number] Date(s): 02/07/14 - 02/07/14 [facility] [address] [address] Discharge Disposition: Home Physician Attending: Bacilio Resendiz MD Physician_Referring: Bacilio Resendiz MD Reason for Visit 278.01 Vital Signs 1 2 3 Most recent to oldest [Reference Range]: 152.4 cm (02/01/14 2:01 PM) Height 98.9 DegF (02/01/14 2:10 PM) Temperature Oral [96.4-99.1 DegF] 153 mmHg *HI* (02/07/14 11:15 AM) 155 mmHg *HI* (02/07/14 11:00 AM) 152 mmHg *HI* (02/07/14 10:45 AM) Systolic Blood Pressure [90-140 mmHg] 86 mmHg (02/07/14 11:15 AM) 88 mmHg (02/07/14 11:00 AM) 82 mmHg (02/07/14 10:45 AM) Diastolic Blood Pressure [60-90 mmHg] 11 BRMIN *LOW* (02/07/14 9:45 AM) 17 BRMIN (02/07/14 9:38 AM) 15 BRMIN (02/07/14 9:16 AM) Respiratory Rate [14-20 BRMIN] 75 bpm (02/07/14 7:00 AM) 83 bpm (02/01/14 2:10 PM) Peripheral Pulse Rate [60-100 bpm] 100.057 kg (02/01/14 2:01 PM) Weight 43.08 m2 (02/01/14 2:01 PM) Body Mass Index Problem List Condition Effective Dates Status Health Status Informant Acid Active reflux(Confirmed) Anxiety(Confirmed) Active SOBOE - Shortness of Active breath on exertion(Confirmed) Allergies, Adverse Reactions, Alerts Substance Reaction Severity Status NKDA Active Medications acetaminophen 650 mg, Route: PO, Drug form: ELIX, Q4H, Dosing Weight 100.057, kg, PRN Pain Sco re 1-3, Start date: 02/07/14 8:43:00, Duration: 30 day, Stop date: 03/09/14 8:42 :00 Start Date: 02/07/14 Stop Date: 02/07/14 Status: Discontinued acetaminophen 650 mg, Route: W[place], Q4H, Dosing Weight 100.057, kg, PRN For Temp > 100.4 F, Start date: 02/07/14 8:43:00, Duration: 30 day, Stop date: 03/09/14 8:42:00 Start Date: 02/07/14 Stop Date: 02/07/14 Status: Discontinued ceFAZolin 2 gm, 100 mL, Route: IVPB, Drug form: INJ, ONCALL, Dosing Weight 100.057, kg, St art date: 02/01/14 15:00:00, Duration: 7 day, Stop date: 02/08/14 14:59:00 Notes: Same as: Ancef Start Date: 02/01/14 Stop Date: 02/07/14 Status: Completed diphenhydrAMINE 12.5 mg, Route: IVP, Drug form: INJ, Q6H, Dosing Weight 100.057, kg, PRN Itching , Start date: 02/07/14 9:05:00, Duration: 30 day, Stop date: 03/09/14 9:04:00 Start Date: 02/07/14 Stop Date: 02/07/14 Status: Discontinued fentaNYL 25 microgram, Route: IVP, Q5Min, Dosing Weight 100.057, kg, PRN Pain Score 4-6, Start date: 02/07/14 9:05:00, Duration: 4 doses or times, Stop date: Limited # o f times Start Date: 02/07/14 Stop Date: 02/07/14 Status: Discontinued fentaNYL 50 microgram, Route: IVP, Q5Min, Dosing Weight 100.057, kg, PRN Pain Score 7-10, Start date: 02/07/14 9:05:00, Duration: 2 doses or times, Stop date: Limited # of times Start Date: 02/07/14 Stop Date: 02/07/14 Status: Discontinued flumazenil 0.2 mg, Route: IVP, PRN, Dosing Weight 100.057, kg, PRN Benzodiazepine Reversal, Initial dose, Start date: 02/07/14 9:05:00, Duration: 30 day, Stop date: 9:04:00 Start Date: 02/07/14 Stop Date: 02/07/14 Status: Discontinued glycopyrrolate 0.2 mg, Route: IVP, Q5Min, Dosing Weight 100.057, kg, PRN Bradycardia, Start derrick e: 02/07/14 9:05:00, Duration: 3 doses or times, Stop date: Limited # of times Start Date: 02/07/14 Stop Date: 02/07/14 Status: Discontinued heparin 5000 units/mL injectable solution 5,000 unit, 1 mL, Route: SUB-Q, Drug form: INJ, ONCE, Dosing Weight 104.318, kg, Start date: 02/01/14 14:01:00, Stop date: 02/01/14 14:01:00 Notes: porcine heparin Start Date: 02/01/14 Stop Date: 02/07/14 Status: Completed hydrALAZINE 10 mg, Route: IVP, Q20Min, Dosing Weight 100.057, kg, PRN Elevated BP, Start derrick e: 02/07/14 9:05:00, Duration: 2 doses or times, Stop date: Limited # of times Start Date: 02/07/14 Stop Date: 02/07/14 Status: Discontinued hydromorphone 0.5 mg, Route: IVP, Q5Min, Dosing Weight 100.057, kg, PRN Pain Score 7-10, Start date: 02/07/14 9:05:00, Duration: 4 doses or times, Stop date: Limited # of umesh es Start Date: 02/07/14 Stop Date: 02/07/14 Status: Discontinued ketorolac 30 mg, Route: IVP, Q6H, Dosing Weight 100.057, kg, Start date: 02/07/14 12:00:00 , Duration: 6 doses or times, Stop date: 02/08/14 18:00:00 Start Date: 02/07/14 Stop Date: 02/07/14 Status: Discontinued ketorolac 30 mg, Route: IVP, ONCE, Dosing Weight 100.057, kg, Start date: 02/07/14 9:05:00 , Duration: 1 doses or times, Stop date: 02/07/14 9:05:00 Start Date: 02/07/14 Stop Date: 02/07/14 Status: Discontinued Lactated Ringers Injection IV 1,000 mL 1,000 mL, Rate: 125 ml/hr, Infuse over: 8 hr, Route: IV, Dosing Weight 100.057 k g, Total Volume: 1,000, Start date: 02/01/14 14:01:00, Duration: 7 day, Stop derrick e: 02/08/14 14:00:00 Start Date: 02/01/14 Stop Date: 02/07/14 Status: Discontinued Lactated Ringers Injection IV 1000 mL 1,000 mL, Rate: 25 ml/hr, Infuse over: 40 hr, Route: IV, Dosing Weight 100.057 k g, Total Volume: 1,000, Start date: 02/07/14 8:06:00, Duration: 30 day, Stop derrick e: 03/09/14 8:05:00 Start Date: 02/07/14 Stop Date: 02/07/14 Status: Discontinued [id number] 1,000 mL 1,000 mL, Rate: 100 ml/hr, Infuse over: 10 hr, Route: IV, Dosing Weight 100.057 kg, Total Volume: 1,000, Start date: 02/01/14 14:01:00, Duration: 30 day, Stop d ate: 03/03/14 14:00:00 Start Date: 02/01/14 Stop Date: 02/07/14 Status: Discontinued meperidine 12.5 mg, Route: IVP, Q30Min, Dosing Weight 100.057, kg, PRN Other -See Comment, For shivering, Start date: 02/07/14 9:05:00, Duration: 2 doses or times, Stop da te: Limited # of times Start Date: 02/07/14 Stop Date: 02/07/14 Status: Discontinued metoclopramide 10 mg, Route: IVP, Drug form: INJ, Q8H, Dosing Weight 100.057, kg, Start date: 1 04/09/13 16:00:00, Duration: 30 day, Stop date: 03/09/14 8:00:00 Start Date: 02/07/14 Stop Date: 02/07/14 Status: Discontinued metoprolol 2.5 mg, Route: IVP, Q6H, Dosing Weight 100.057, kg, PRN Elevated BP, Systolic BP >180 or Diastolic BP >100, Start date: 02/07/14 8:43:00, Duration: 30 day, Stop date: 03/09/14 8:42:00 Start Date: 02/07/14 Stop Date: 02/07/14 Status: Discontinued metoprolol 1 mg, Route: IVP, Q5Min, Dosing Weight 100.057, kg, PRN Other -See Comment, Star t date: 02/07/14 9:05:00, Duration: 5 doses or times, Stop date: Limited # of ti mes Start Date: 02/07/14 Stop Date: 02/07/14 Status: Discontinued morphine Sulfate 4 mg, Route: IVP, Q5Min, Dosing Weight 100.057, kg, PRN Pain Score 7-10, Start d ate: 02/07/14 9:05:00, Duration: 3 doses or times, Stop date: Limited # of times Start Date: 02/07/14 Stop Date: 02/07/14 Status: Discontinued morphine Sulfate 2 mg, Route: IVP, Q5Min, Dosing Weight 100.057, kg, PRN Pain Score 4-6, Start da te: 02/07/14 9:05:00, Duration: 5 doses or times, Stop date: Limited # of times Start Date: 02/07/14 Stop Date: 02/07/14 Status: Discontinued naloxone 0.04 mg, Route: IVP, Q2MIN, Dosing Weight 100.057, kg, PRN Narcotic Reversal, St art date: 02/07/14 9:05:00, Duration: 8 doses or times, Stop date: Limited # of times Start Date: 02/07/14 Stop Date: 02/07/14 Status: Discontinued ondansetron 4 mg, Route: IVP, ONCE, Dosing Weight 100.057, kg, PRN Nausea & Vomiting, Start date: 02/07/14 9:05:00 Start Date: 02/07/14 Stop Date: 02/07/14 Status: Discontinued ondansetron 4 mg, Route: IVP, Q12H, Dosing Weight 100.057, kg, PRN Nausea & Vomiting, Start date: 02/07/14 8:43:00, Duration: 30 day, Stop date: 03/09/14 8:42:00 Start Date: 02/07/14 Stop Date: 02/07/14 Status: Discontinued oxyCODONE 10 mg, Route: PO, Drug form: TAB, Q4H, Dosing Weight 100.057, kg, PRN Pain Score 7-10, Start date: 02/07/14 9:05:00, Duration: 30 day, Stop date: 03/09/14 9:04: 00 Start Date: 02/07/14 Stop Date: 02/07/14 Status: Discontinued oxyCODONE 5 mg, Route: PO, Drug form: TAB, Q4H, Dosing Weight 100.057, kg, PRN Pain Score 4-6, Start date: 02/07/14 9:05:00, Duration: 30 day, Stop date: 03/09/14 9:04:00 Start Date: 02/07/14 Stop Date: 02/07/14 Status: Discontinued promethazine 6.25 mg, Route: IVPB, ONCE, Dosing Weight 100.057, kg, PRN Nausea & Vomiting, Start date: 02/07/14 9:05:00 Start Date: 02/07/14 Stop Date: 02/07/14 Status: Discontinued promethazine 12.5 mg, Route: IM, Q4H, Dosing Weight 100.057, kg, PRN Nausea & Vomiting, Start date: 02/07/14 8:43:00, Duration: 30 day, Stop date: 03/09/14 8:42:00 Start Date: 02/07/14 Stop Date: 02/07/14 Status: Discontinued scopolamine 1.5 mg transdermal film 1 patch, Route: TOP, Drug Form: ERFILM, Dosing Weight 104.318, kg, ONCE, Start d ate: 02/01/14 14:01:00, Stop date: 02/01/14 14:01:00 Notes: Change patch every 72 hours (Same as: Transderm-Scop) Start Date: 02/01/14 Stop Date: 02/07/14 Status: Completed Zolvit oral liquid 15 mL, Route: PO, Dosing Weight 100.057, kg, ONCE, Start date: 02/07/14 10:33:00 , Stop date: 02/07/14 10:33:00 Start Date: 02/07/14 Stop Date: 02/07/14 Status: Completed Results ELECTROLYTES Most recent to 1 oldest [Reference Range]: Sodium Lvl [135-145 138 mEq/L mEq/L] (02/01/14 2:30 PM) Potassium Lvl 4.2 mEq/L [3.5-5.1 mEq/L] (02/01/14 2:30 PM) Chloride Lvl [95-109 103 mEq/L mEq/L] (02/01/14 2:30 PM) CO2 [24-32 mEq/L] 25 mEq/L (02/01/14 2:30 PM) AGAP [10.0-20.0 14.2 mEq/L mEq/L] (02/01/14 2:30 PM) CHEM PANEL Most recent to 1 oldest [Reference Range]: Creatinine Lvl 0.7 mg/dL [0.5-1.4 mg/dL] (02/01/14 2:30 PM) eGFR 106 mL/min/1.73m2 1 *NA* (02/01/14 2:30 PM) BUN [7-22 mg/dL] 16 mg/dL (02/01/14 2:30 PM) Glucose Lvl [70-99 91 mg/dL 2 mg/dL] (02/01/14 2:30 PM) Calcium Lvl 9.5 mg/dL [8.5-10.5 mg/dL] (02/01/14 2:30 PM) 1Result Comment: The eGFR is calculated [...] values reflect the clinical guidelines of the [place] [employer]. HEMATOLOGY Most recent to 1 oldest [Reference Range]: WBC [3.7-10.4 K/CMM] 11.1 K/CMM *HI* (02/01/14 2:30 PM) RBC [4.20-5.40 4.52 M/CMM M/CMM] (02/01/14 2:30 PM) Hgb [12.0-16.0 g/dL] 13.2 g/dL (02/01/14 2:30 PM) Hct [36.0-48.0 %] 39.7 % (02/01/14 2:30 PM) MCV [80.0-98.0 fL] 87.8 fL (02/01/14 2:30 PM) MCH [27.0-31.0 pg] 29.1 pg (02/01/14 2:30 PM) MCHC [32.0-36.0 33.2 g/dL g/dL] (02/01/14 2:30 PM) RDW [11.5-14.5 %] 13.5 % (02/01/14 2:30 PM) Platelet [133-450 263 K/CMM K/CMM] (02/01/14 2:30 PM) MPV [7.4-10.4 fL] 10.1 fL (02/01/14 2:30 PM) Segs [45.0-75.0 %] 75.0 % (02/01/14 2:30 PM) Lymphocytes 16.7 % [20.0-40.0 %] *LOW* (02/01/14 2:30 PM) Monocytes [2.0-12.0 6.6 % %] (02/01/14 2:30 PM) Eosinophils [0.0-4.0 1.2 % %] (02/01/14 2:30 PM) Basophils [0.0-1.0 0.5 % %] (02/01/14 2:30 PM) Segs-Bands # 8.3 K/CMM [1.5-8.1 K/CMM] *HI* (02/01/14 2:30 PM) Lymphocytes # 1.9 K/CMM [1.0-5.5 K/CMM] (02/01/14 2:30 PM) Monocytes # [0.0-0.8 0.7 K/CMM K/CMM] (02/01/14 2:30 PM) Eosinophils # 0.1 K/CMM [0.0-0.5 K/CMM] (02/01/14 2:30 PM) Basophils # [0.0-0.2 0.1 K/CMM K/CMM] (02/01/14 2:30 PM) Medications Administered During Your Visit No data available for this section Immunizations No data available for this section Social History Social History Type Response Substance Abuse Use: None Alcohol Use: Current1 Smoking Status Unknown if ever smoked, Exposure to Tobacco Smoke None, Cigarette Smoking Last 365 Days No, Reg Smoking Cessation Counseling No 1occasional
--- OUTSIDE RECORDS SUMMARY | 2018-11-02 09:02 | XMS REPORT | Summary of Care ---
Author Organization Unknown Address Unknown Phone Unavailable Encounter GERALDO Bowers(CHARLES) [id number] Date(s): 01/09/14 - 01/09/14 [facility] [address] Discharge Diagnosis: GERD (gastroesophageal reflux disease) Discharge Disposition: Home Physician Attending: Saúl Valles MD Reason for Visit DOCTOR SENT Vital Signs 1 2 3 Most recent to oldest [Reference Range]: 152.4 cm (01/09/14 10:06 AM) Height 98.2 DegF (01/09/14 10:06 AM) Temperature Oral [96.4-99.1 DegF] 148 mmHg *HI* (01/09/14 2:51 PM) 157 mmHg *HI* (01/09/14 12:30 PM) 150 mmHg *HI* (01/09/14 12:00 PM) Systolic Blood Pressure [90-140 mmHg] 75 mmHg (01/09/14 2:51 PM) 94 mmHg *HI* (01/09/14 12:30 PM) 109 mmHg *HI* (01/09/14 12:00 PM) Diastolic Blood Pressure [60-90 mmHg] 15 BRMIN (01/09/14 2:51 PM) 20 BRMIN (01/09/14 1:45 PM) 14 BRMIN (01/09/14 12:30 PM) Respiratory Rate [14-20 BRMIN] 68 bpm (01/09/14 10:06 AM) Peripheral Pulse Rate [60-100 bpm] 104.318 kg (01/09/14 10:06 AM) Weight 44.91 m2 (01/09/14 10:06 AM) Body Mass Index Problem List Condition Effective Dates Status Health Status Informant Acid Active reflux(Confirmed) Anxiety(Confirmed) Active SOBOE - Shortness of Active breath on exertion(Confirmed) Allergies, Adverse Reactions, Alerts Substance Reaction Severity Status NKDA Active Medications GI cocktail 30 mL, Route: PO, Dosing Weight 104.318, kg, ONCE, STAT, Start date: 01/09/14 14 :50:00, Stop date: 01/09/14 14:50:00 Start Date: 01/09/14 Stop Date: 01/09/14 Status: Completed GI cocktail 30 mL, Route: PO, Dosing Weight 104.318, kg, ONCE, STAT, Start date: 01/09/14 14 :52:00, Stop date: 01/09/14 14:52:00 Start Date: 01/09/14 Stop Date: 01/09/14 Status: Discontinued Sodium Chloride 0.9% (Bolus) IV 500 mL, 500 ml/hr, Infuse Over: 1 hr, Route: IV, ONCE, Priority: STAT, Dosing We ight 104.318 kg, Start date: 01/09/14 11:07:00, Duration: 1 doses or times, Stop date: 01/09/14 11:07:00 Start Date: 01/09/14 Stop Date: 01/09/14 Status: Completed Results ELECTROLYTES Most recent to 1 oldest [Reference Range]: Sodium Lvl [135-145 139 mEq/L mEq/L] (01/09/14 10:21 AM) Potassium Lvl 3.9 mEq/L [3.5-5.1 mEq/L] (01/09/14 10:21 AM) Chloride Lvl [95-109 106 mEq/L mEq/L] (01/09/14 10:21 AM) CO2 [24-32 mEq/L] 26 mEq/L (01/09/14 10:21 AM) AGAP [10.0-20.0 10.9 mEq/L mEq/L] (01/09/14 10:21 AM) CHEM PANEL Most recent to 1 oldest [Reference Range]: Creatinine Lvl 0.8 mg/dL [0.5-1.4 mg/dL] (01/09/14 10:21 AM) eGFR 90 mL/min/1.73m2 1 *NA* (01/09/14 10:21 AM) BUN [7-22 mg/dL] 12 mg/dL (01/09/14 10:21 AM) Glucose Lvl [70-99 90 mg/dL 2 mg/dL] (01/09/14 10:21 AM) Calcium Lvl 9.3 mg/dL [8.5-10.5 mg/dL] (01/09/14 10:21 AM) 1Result Comment: The eGFR is calculated [...] values reflect the clinical guidelines of the [place] [employer]. ENDOCRINOLOGY Most recent to 1 oldest [Reference Range]: S Preg [Negative] Negative *NA* (01/09/14 10:21 AM) IMMUNOLOGY Most recent to 1 oldest [Reference Range]: CDC HIV 4th GEN Negative [Negative] (01/09/14 10:21 AM) HEMATOLOGY Most recent to 1 oldest [Reference Range]: WBC [3.7-10.4 K/CMM] 9.0 K/CMM (01/09/14 10:21 AM) RBC [4.20-5.40 4.26 M/CMM M/CMM] (01/09/14 10:21 AM) Hgb [12.0-16.0 g/dL] 12.8 g/dL (01/09/14 10:21 AM) Hct [36.0-48.0 %] 37.5 % (01/09/14 10:21 AM) MCV [80.0-98.0 fL] 88.0 fL (01/09/14 10:21 AM) MCH [27.0-31.0 pg] 30.0 pg (01/09/14 10:21 AM) MCHC [32.0-36.0 34.1 g/dL g/dL] (01/09/14 10:21 AM) RDW [11.5-14.5 %] 13.5 % (01/09/14 10:21 AM) Platelet [133-450 241 K/CMM K/CMM] (01/09/14 10:21 AM) MPV [7.4-10.4 fL] 10.8 fL *HI* (01/09/14 10:21 AM) Segs [45.0-75.0 %] 75.6 % *HI* (01/09/14 10:21 AM) Lymphocytes 15.5 % [20.0-40.0 %] *LOW* (01/09/14 10:21 AM) Monocytes [2.0-12.0 5.9 % %] (01/09/14 10:21 AM) Eosinophils [0.0-4.0 2.4 % %] (01/09/14 10:21 AM) Basophils [0.0-1.0 0.6 % %] (01/09/14 10:21 AM) Segs-Bands # 6.8 K/CMM [1.5-8.1 K/CMM] (01/09/14 10:21 AM) Lymphocytes # 1.4 K/CMM [1.0-5.5 K/CMM] (01/09/14 10:21 AM) Monocytes # [0.0-0.8 0.5 K/CMM K/CMM] (01/09/14 10:21 AM) Eosinophils # 0.2 K/CMM [0.0-0.5 K/CMM] (01/09/14 10:21 AM) Basophils # [0.0-0.2 0.1 K/CMM K/CMM] (01/09/14 10:21 AM) Medications Administered During Your Visit No [...]
--- OUTSIDE RECORDS SUMMARY | 2018-11-02 09:02 | XMS REPORT | Summary of Care ---
Author Author [facility] Organization [facility] Address Unknown Phone Unavailable Encounter HQ Elissa(FIN) [id number] Date(s): 02/27/18 - 02/27/18 [facility] [address] [place] [address]- [phone] Encounter Diagnosis Back pain (Discharge Diagnosis) - 02/27/18 Abdominal pain (Discharge Diagnosis) - 02/27/18 Low back pain (Final) - 03/04/18 Right lower quadrant pain (Final) - Nausea with vomiting, unspecified (Final) - Dysuria (Final) - Anxiety disorder, unspecified (Final) - Personal history of nicotine dependence (Final) - Unspecified ovarian cyst, left side (Final) - Other custodial (current) drug therapy (Final) - Discharge Disposition: Home or Self Care Attending Physician: Wesley Hidalgo MD Vital Signs 1 2 3 Most recent to oldest [Reference Range]: 98.3 DegF (02/27/18 9:30 AM) 98.3 DegF (02/27/18 6:20 AM) 98.5 DegF (02/27/18 5:18 AM) Temperature Oral [96.4-99.1 DegF] 164/66 mmHg *HI* (02/27/18 9:30 AM) 176/84 mmHg *HI* (02/27/18 8:00 AM) 173/82 mmHg *HI* (02/27/18 7:30 AM) Blood Pressure [90-140/60-90 mmHg] 11 BRMIN *LOW* (02/27/18 9:30 AM) 14 BRMIN (02/27/18 8:00 AM) 11 BRMIN *LOW* (02/27/18 7:30 AM) Respiratory Rate [14-20 BRMIN] 63 bpm (02/27/18 5:18 AM) 78 bpm (02/27/18 2:03 AM) Peripheral Pulse Rate [60-100 bpm] 98.636 kg (02/27/18 2:03 AM) Weight Problem List Condition Effective Dates Status Health [...] Status NKDA Active Adhesive Tape Active Medications Medrol 4 mg oral tablet =1 pkt, PO, ONCE, as directed on package labeling, # 21 tab, 0 Refill(s) Start Date: 02/27/18 Status: Ordered Delmita 7.5/325 oral tablet 1 tab, Route: PO, Drug Form: TAB, Dosing Weight 98.636, kg, ONCE, STAT, Start da te: 02/27/18 5:34:00 DRUPAL PHP DEVELOPER, Stop date: 02/27/18 5:34:00 DRUPAL PHP DEVELOPER Start Date: 02/27/18 Stop Date: 02/27/18 Status: Completed Tylenol with Codeine #3 oral tablet 1 - 2 tab, PO, Q4H, PRN Pain, X 3 day, # 20 tab, 0 Refill(s) Start Date: 02/27/18 Stop Date: 03/02/18 Status: Completed Zofran 4 mg, Route: IVP, Drug form: INJ, ONCE, Dosing Weight 98.636, kg, Priority: STAT , Start date: 02/27/18 5:33:00 DRUPAL PHP DEVELOPER, Stop date: 02/27/18 5:33:00 DRUPAL PHP DEVELOPER Start Date: 02/27/18 Stop Date: 02/27/18 Status: Completed Zofran 4 mg oral tablet 4 mg=1 tab, PO, BID, # 10 tab, 0 Refill(s) Start Date: 02/27/18 Stop Date: 03/04/18 Status: Ordered Results Most recent to 1 oldest [Reference Range]: Neutrophils # 8.5 K/CMM [1.5-8.1 K/CMM] *HI* (02/27/18 4:58 AM) Lymphocytes # 1.6 K/CMM [1.0-5.5 K/CMM] (02/27/18 4:58 AM) Monocytes # [0.0-0.8 0.5 K/CMM K/CMM] (02/27/18 4:58 AM) Eosinophils # 0.1 K/CMM [0.0-0.5 K/CMM] (02/27/18 4:58 AM) eGFR 81 mL/min/1.73m2 1 *NA* (02/27/18 4:58 AM) A/G Ratio [0.7-1.6] 0.9 (02/27/18 4:58 AM) Albumin Lvl [3.5-5.0 3.5 g/dL g/dL] (02/27/18 4:58 AM) Alk Phos [39-136 108 unit/L unit/L] (02/27/18 4:58 AM) ALT [0-65 unit/L] 20 unit/L (02/27/18 4:58 AM) AGAP [10.0-20.0 14.0 mEq/L mEq/L] (02/27/18 4:58 AM) AST [0-37 unit/L] 11 unit/L (02/27/18 4:58 AM) B/C Ratio [6-25] 15 (02/27/18 4:58 AM) Basophils [0.0-1.0 0.4 % %] (02/27/18 4:58 AM) BUN [7-22 mg/dL] 13 mg/dL (02/27/18 4:58 AM) Calcium Lvl 8.8 mg/dL [8.5-10.5 mg/dL] (02/27/18 4:58 AM) Chloride Lvl [95-109 106 mEq/L mEq/L] (02/27/18 4:58 AM) CO2 [24-32 mEq/L] 22 mEq/L *LOW* (02/27/18 4:58 AM) Creatinine Lvl 0.85 mg/dL [0.50-1.40 mg/dL] (02/27/18 4:58 AM) Eosinophils [0.0-4.0 0.9 % %] (02/27/18 4:58 AM) Globulin [2.7-4.2 3.9 g/dL g/dL] (02/27/18 4:58 AM) Glucose Lvl [70-99 110 mg/dL mg/dL] *HI* (02/27/18 4:58 AM) Hct [36.0-48.0 %] 39.2 % (02/27/18 4:58 AM) Hgb [12.0-16.0 g/dL] 13.2 g/dL (02/27/18 4:58 AM) Potassium Lvl 4.0 mEq/L [3.5-5.1 mEq/L] (02/27/18 4:58 AM) Lipase Lvl [73-393 96 unit/L unit/L] (02/27/18 4:58 AM) Lymphocytes 14.6 % [20.0-40.0 %] *LOW* (02/27/18 4:58 AM) MCH [27.0-31.0 pg] 30.4 pg (02/27/18 4:58 AM) MCHC [32.0-36.0 33.6 g/dL g/dL] (02/27/18 4:58 AM) MCV [80.0-98.0 fL] 90.3 fL (02/27/18 4:58 AM) Monocytes [2.0-12.0 4.7 % %] (02/27/18 4:58 AM) MPV [7.4-10.4 fL] 10.3 fL (02/27/18 4:58 AM) Sodium Lvl [135-145 138 mEq/L mEq/L] (02/27/18 4:58 AM) Platelet [133-450 259 K/CMM K/CMM] (02/27/18 4:58 AM) Segs [45.0-75.0 %] 79.4 % *HI* (02/27/18 4:58 AM) Total Protein 7.4 g/dL [6.4-8.4 g/dL] (02/27/18 4:58 AM) RBC [4.20-5.40 4.34 M/CMM M/CMM] (02/27/18 4:58 AM) RDW [11.5-14.5 %] 13.6 % (02/27/18 4:58 AM) S Preg [Negative] Negative *NA* (02/27/18 4:58 AM) Bili Total [0.2-1.3 0.4 mg/dL mg/dL] (02/27/18 4:58 AM) UA Bacteria [None Occasional /HPF Seen /HPF] *NA* (02/27/18 4:58 AM) UA Bili [Negative] Negative *NA* (02/27/18 4:58 AM) UA Blood [Negative] Negative (02/27/18 4:58 AM) UA Color Ltyellow *NA* (02/27/18 4:58 AM) UA Glucose Negative [Negative] *NA* (02/27/18 4:58 AM) UA Ketones Negative [Negative] *NA* (02/27/18 4:58 AM) UA Leuk Est Negative [Negative] (02/27/18 4:58 AM) UA Nitrite Negative [Negative] (02/27/18 4:58 AM) UA pH [5.0-8.0] 7.0 (02/27/18 4:58 AM) UA Protein Negative [Negative] (02/27/18 4:58 AM) UA RBC [0-2 /HPF] 2 /HPF (02/27/18 4:58 AM) UA Spec Grav 1.014 [<=1.030] (02/27/18 4:58 AM) UA Sq Epi [Few /LPF] Occasional /LPF *NA* (02/27/18 4:58 AM) UA Turbidity [Clear] Clear (02/27/18 4:58 AM) UA Urobilinogen <=1.0 mg/dL [0.1-1.0 mg/dL] *NA* (02/27/18 4:58 AM) UA WBC [0-5 /HPF] <1 /HPF (02/27/18 4:58 AM) WBC [3.7-10.4 K/CMM] 10.7 K/CMM *HI* (02/27/18 4:58 AM) 1Result Comment: The eGFR is calculated [...] be mul tiplied by the estimated BMI. Immunizations Given and Recorded Vaccine Date Status [...]
--- OUTSIDE RECORDS SUMMARY | 2018-11-02 09:02 | XMS REPORT | Summary of Care ---
Author Organization Unknown Address Unknown Phone Unavailable Encounter HQ Jenniferr_tony(CHARLES) [id number] Date(s): 04/19/14 - 04/19/14 [facility] [address] Discharge Disposition: Home Physician Attending: Brian Malhotra MD Physician_Referring: Brian Malhotra MD Reason for Visit ABD PAIN; INFECTED LAP BAND Problem List Condition Effective Dates Status Health Status Informant Acid Active reflux(Confirmed) Anxiety(Confirmed) Active SOBOE - Shortness of Active breath on exertion(Confirmed) Allergies, Adverse Reactions, Alerts Substance Reaction Severity Status NKDA Active Medications No data available for this section Medications Administered During Your Visit No data [...]
--- OUTSIDE RECORDS SUMMARY | 2018-11-02 09:03 | XMS REPORT | Summary of Care ---
Author Organization Unknown Address Unknown Phone Unavailable Encounter HQ Nakul_tony(FIN) [id number] Date(s): 05/11/14 - 06/09/14 [facility] [address] [place] [address]- Discharge Disposition: Home Physician Attending: Christian Crump MD Vital Signs No data available for [...] section Results ELECTROLYTES Most recent to 1 2 3 4 oldest [Reference Range]: Sodium Lvl [135-145 139 mEq/L 142 mEq/L mEq/L] (06/06/14 10:30 AM) (05/11/14 11:50 AM) Potassium Lvl 4.0 mEq/L 3.7 mEq/L [3.5-5.1 mEq/L] (06/06/14 10:30 AM) (05/11/14 11:50 AM) Chloride Lvl [95-109 105 mEq/L 105 mEq/L mEq/L] (06/06/14 10:30 AM) (05/11/14 11:50 AM) CO2 [24-32 mEq/L] 27 mEq/L 30 mEq/L (06/06/14 10:30 AM) (05/11/14 11:50 AM) AGAP [10.0-20.0 11.0 mEq/L 10.7 mEq/L mEq/L] (06/06/14 10:30 AM) (05/11/14 11:50 AM) CHEM PANEL Most recent to 1 2 3 4 oldest [Reference Range]: Creatinine Lvl 1.2 mg/dL 2.5 mg/dL [0.5-1.4 mg/dL] (06/06/14 10:30 AM) *HI* (05/11/14 11:50 AM) eGFR 55 mL/min/1.73m2 1 23 mL/min/1.73m2 2 *NA* *NA* (06/06/14 10:30 AM) (05/11/14 1150 AM) BUN [7-22 mg/dL] 18 mg/dL 29 mg/dL (06/06/14 10:30 AM) *HI* (05/11/14 11:50 AM) Glucose Lvl [70-99 90 mg/dL 3 115 mg/dL 4 mg/dL] (06/06/14 10:30 AM) *HI* (05/11/14 11:50 AM) Uric Acid [2.5-7.0 4.2 mg/dL 5.3 mg/dL mg/dL] (06/06/14 10:30 AM) (05/11/14 11:50 AM) Albumin Lvl [3.5-5.0 3.7 g/dL 3.7 g/dL g/dL] (06/06/14 10:30 AM) (05/11/14 11:50 AM) Calcium Lvl 8.9 mg/dL 10.1 mg/dL [8.5-10.5 mg/dL] (06/06/14 10:30 AM) (05/11/14 11:50 AM) Phosphorus [2.5-4.5 3.5 mg/dL 3.9 mg/dL mg/dL] (06/06/14 10:30 AM) (05/11/14 11:50 AM) Magnesium Lvl 1.7 mg/dL 1.8 mg/dL [1.8-2.4 mg/dL] *LOW* (05/11/14 11:50 AM) (06/06/14 10:30 AM) 1Result Comment: The eGFR is calculated [...] be mul tiplied by the estimated BMI. 3Interpretive Data: Adult reference range values reflect the clinical guidelines of the [place] [employer]. 4Interpretive Data: Adult reference range values reflect the clinical guidelines of the [place] [employer]. URINE CHEM Most recent to 1 2 3 4 oldest [Reference Range]: U Creatinine 72.2 mg/dL 5 128.1 mg/dL 6 *NA* *NA* (06/06/14 10:30 AM) (05/11/14 11:50 AM) U Protein 11.2 mg/dL 7 28.3 mg/dL 8 *NA* *NA* (06/06/14 10:30 AM) (05/11/14 11:50 AM) U Prot/Creat 0.2 0.2 0.2 0.2 *NA* *NA* *NA* *NA* (06/06/14 10:30 AM) (06/06/14 10:30 AM) (05/11/14 11:50 AM) (05/11/14 11:50 AM) 5Interpretive Data: No established reference ranges. 6Interpretive Data: No established reference ranges. 7Interpretive Data: No established reference ranges. 8Interpretive Data: No established reference ranges. URINE AND STOOL Most recent to 1 2 3 4 oldest [Reference Range]: UA Turbidity [Clear] Clear Clear (06/06/14 10:30 AM) (05/11/14 11:50 AM) UA Color Ltyellow Ltyellow *NA* *NA* (06/06/14:30 AM) (05/11/14 11:50 AM) UA pH [5.0-8.0] 6.0 5.0 (06/06/14 10:30 AM) (05/11/14 11:50 AM) UA Spec Grav 1.011 1.012 [<=1.030] (06/06/14 10:30 AM) (05/11/14 11:50 AM) UA Glucose [Negative Negative mg/dL Negative mg/dL mg/dL] *NA* *NA* (06/06/14 10:30 AM) (05/11/14 11:50 AM) UA Blood [Negative] Negative Negative (06/06/14 10:30 AM) (05/11/14 11:50 AM) UA Ketones [Negative Negative mg/dL Negative mg/dL mg/dL] *NA* *NA* (06/06/14 10:30 AM) (05/11/14 11:50 AM) UA Protein [Negative Negative mg/dL Negative mg/dL mg/dL] (06/06/14 10:30 AM) (05/11/14 11:50 AM) UA Urobilinogen <=1.0 mg/dL <=1.0 mg/dL [0.1-1.0 mg/dL] *NA* *NA* (06/06/14 10:30 AM) (05/11/14 11:50 AM) UA Bili [Negative] Negative Negative *NA* *NA* (06/06/14 10:30 AM) (05/11/14 11:50 AM) UA Leuk Est Negative Negative [Negative] (06/06/14 10:30 AM) (05/11/14 11:50 AM) UA Nitrite Negative Negative [Negative] (06/06/14 10:30 AM) (05/11/14 11:50 AM) UA WBC [0-5 /HPF] 1 /HPF 4 /HPF (06/06/14 10:30 AM) (05/11/14 11:50 AM) UA RBC [0-2 /HPF] 1 /HPF 3 /HPF (06/06/14 10:30 AM) *HI* (05/11/14 11:50 AM) UA Bacteria [None Occasional /HPF Seen /HPF] *NA* (05/11/14 11:50 AM) UA Sq Epi [Few /LPF] Occasional /LPF Few /LPF *NA* *NA* (06/06/14 10:30 AM) (05/11/14 11:50 AM) HEMATOLOGY Most recent to 1 2 3 4 oldest [Reference Range]: WBC [3.7-10.4 K/CMM] 9.8 K/CMM 9.5 K/CMM (06/06/14 10:30 AM) (05/11/14 11:50 AM) RBC [4.20-5.40 3.62 M/CMM 3.88 M/CMM M/CMM] *LOW* *LOW* (06/06/14 10:30 AM) (05/11/14 11:50 AM) Hgb [12.0-16.0 g/dL] 10.8 g/dL 11.2 g/dL *LOW* *LOW* (06/06/14 10:30 AM) (05/11/14 11:50 AM) Hct [36.0-48.0 %] 31.2 % 33.3 % *LOW* *LOW* (06/06/14 10:30 AM) (05/11/14 11:50 AM) MCV [80.0-98.0 fL] 86.3 fL 85.9 fL (06/06/14 10:30 AM) (05/11/14 11:50 AM) MCH [27.0-31.0 pg] 29.8 pg 28.8 pg (06/06/14 10:30 AM) (05/11/14 11:50 AM) MCHC [32.0-36.0 34.5 g/dL 33.5 g/dL g/dL] (06/06/14 10:30 AM) (05/11/14 11:50 AM) RDW [11.5-14.5 %] 16.2 % 14.5 % *HI* (05/11/14 11:50 AM) (06/06/14 10:30 AM) Platelet [133-450 267 K/CMM 364 K/CMM K/CMM] (06/06/14 10:30 AM) (05/11/14 11:50 AM) MPV [7.4-10.4 fL] 9.2 fL 8.4 fL (06/06/14 10:30 AM) (05/11/14 11:50 AM) Segs [45.0-75.0 %] 82.4 % 76.4 % *HI* *HI* (06/06/14:30 AM) (05/11/14 11:50 AM) Lymphocytes 10.6 % 13.7 % [20.0-40.0 %] *LOW* *LOW* (06/06/14:30 AM) (05/11/14 1150 AM) Monocytes [2.0-12.0 5.5 % 7.5 % %] (06/06/14 10:30 AM) (05/11/14 11:50 AM) Eosinophils [0.0-4.0 1.2 % 1.8 % %] (06/06/14 10:30 AM) (05/11/14 11:50 AM) Basophils [0.0-1.0 0.3 % 0.6 % %] (06/06/14:30 AM) (05/11/14 11:50 AM) Segs-Bands # 8.1 K/CMM 7.3 K/CMM [1.5-8.1 K/CMM] (06/06/14 10:30 AM) (05/11/14 11:50 AM) Lymphocytes # 1.0 K/CMM 1.3 K/CMM [1.0-5.5 K/CMM] (06/06/14 10:30 AM) (05/11/14 11:50 AM) Monocytes # [0.0-0.8 0.5 K/CMM 0.7 K/CMM K/CMM] (06/06/14 10:30 AM) (05/11/14 11:50 AM) Eosinophils # 0.1 K/CMM 0.2 K/CMM [0.0-0.5 K/CMM] (06/06/14 10:30 AM) (05/11/14 11:50 AM) Basophils # [0.0-0.2 0.1 K/CMM K/CMM] (05/11/14 11:50 AM) Immunizations Vaccine Date Refusal Reason influenza virus vaccine, inactivated 03/08/14 Procedures No data available for this section Social History Social History Type Response Substance Abuse Use: None. Alcohol Current, Type Beer. Frequency: 1-2 times per month. Smoking Status Former smoker; Type: Cigarettes; Total pack years: 1; Started at age: 14.0; Stopped at age: 16; Exposure to Tobacco Smoke None; Cigarette Smoking Last 365 Days No; Reg Smoking Cessation Counseling No1 1smoked as a teenager Assessment and Plan No data available for this section
--- OUTSIDE RECORDS SUMMARY | 2018-11-02 09:03 | XMS REPORT | Summary of Care ---
Author Organization Unknown Address Unknown Phone Unavailable Encounter HQ Elissa(FIN) [id number] Date(s): 05/08/14 - 05/08/14 [facility] [address] [address] Discharge Disposition: Home Physician Attending: Christian [...] Range]: Sodium Lvl [135-145 141 mEq/L mEq/L] (05/08/14 10:51 AM) Potassium Lvl 4.3 mEq/L [3.5-5.1 mEq/L] (05/08/14 10:51 AM) Chloride Lvl [95-109 103 mEq/L mEq/L] (05/08/14 10:51 AM) CO2 [24-32 mEq/L] 27 mEq/L (05/08/14 10:51 AM) AGAP [10.0-20.0 15.3 mEq/L mEq/L] (05/08/14 10:51 AM) CHEM PANEL Most recent to 1 oldest [Reference Range]: Creatinine Lvl 3.6 mg/dL [0.5-1.4 mg/dL] *HI* (05/08/14 10:51 AM) eGFR 14 mL/min/1.73m2 1 *NA* (05/08/14 10:51 AM) BUN [7-22 mg/dL] 39 mg/dL *HI* (05/08/14 10:51 AM) Glucose Lvl [70-99 97 mg/dL 2 mg/dL] (05/08/14 10:51 AM) Calcium Lvl 9.3 mg/dL [8.5-10.5 mg/dL] (05/08/14 10:51 AM) 1Result Comment: The eGFR is calculated [...] values reflect the clinical guidelines of the [place] [employer]. Medications Administered During Your Visit [...]
--- OUTSIDE RECORDS SUMMARY | 2018-11-02 09:03 | XMS REPORT | Summary of Care ---
Author Organization Unknown Address Unknown Phone Unavailable Encounter HQ Jenniferr_tony(CHARLES) [id number] Date(s): 04/24/14 - 05/02/14 [facility] [address] [place], [place] [id number] [place] [address] Discharge Disposition: Home Physician Attending: Adrien Flaherty DO Physician Admitting: Adrien Flaherty DO Physician_Referring: Bacilio Resendiz MD Reason for Visit 682.2/[id number]/[id number] Vital Signs 1 2 3 Most recent to oldest [Reference Range]: 157.48 cm (04/24/14 8:39 AM) Height 98.4 DegF (05/03/14 12:30 PM) 97.4 DegF (05/03/14 7:45 AM) 98.8 DegF (05/03/14 4:11 AM) Temperature Oral [96.4-99.1 DegF] 152 mmHg *HI* (05/03/14 12:30 PM) 167 mmHg *HI* (05/03/14 7:45 AM) 147 mmHg *HI* (05/03/14 4:11 AM) Systolic Blood Pressure [90-140 mmHg] 86 mmHg (05/03/14 12:30 PM) 90 mmHg (05/03/14 7:45 AM) 84 mmHg (05/03/14 4:11 AM) Diastolic Blood Pressure [60-90 mmHg] 14 BRMIN (05/03/14 12:30 PM) 14 BRMIN (05/03/14 7:45 AM) 16 BRMIN (05/03/14 4:11 AM) Respiratory Rate [14-20 BRMIN] 84 bpm (05/03/14 12:30 PM) 110 bpm *HI* (05/03/14 7:45 AM) 104 bpm *HI* (05/03/14 4:11 AM) Peripheral Pulse Rate [60-100 bpm] 91.023 kg (04/24/14 8:39 AM) Weight 36.7 m2 (04/24/14 8:39 AM) Body Mass Index Problem List Condition [...] Status Adhesive Tape Active NKDA Active Medications acetaminophen 650 mg, 1 supp, Route: KS, Drug form: SUPP, Q4H, Dosing Weight 91.023, kg, PRN F or Temp > 100.4 F, Start date: 04/24/14 13:23:00, Duration: 30 day, Stop date: 05/24/14 13:22:00 Notes: Max ipzkeeijwtagc=0629 mg/day (4 gm/day). (Same as: Tylenol) Start Date: 04/24/14 Stop Date: 05/03/14 Status: Discontinued acetaminophen 650 mg, 20.3 mL, Route: PO, Drug form: LIQ, Q4H, Dosing Weight 91.023, kg, PRN P ain Score 1-3, Start date: 04/24/14 13:23:00, Duration: 30 day, Stop date: 05/24 13:22:00 Notes: Max daejwrzvpcibz=7995zl/day (4 gm/day). (Same as: Tylenol) Start Date: 04/24/14 Stop Date: 05/03/14 Status: Discontinued Biaxin 250 mg, 1 tab, Route: PO, Drug form: TAB, [id number], Dosing Weight 91.023, kg, Sta rt date: 04/27/14 14:00:00, Stop date: 05/27/14 2:00:00 Notes: (Same As: Biaxin) Start Date: 04/27/14 Stop Date: 04/29/14 Status: Discontinued Biaxin 250 mg, 1 tab, Route: PO, Drug form: TAB, [id number], Dosing Weight 91.023, kg, Sta rt date: 04/30/14 2:00:00, Duration: 30 day, Stop date: 05/29/14 14:00:00 Notes: (Same As: Biaxin) Start Date: 04/30/14 Stop Date: 05/03/14 Status: Discontinued ceFAZolin 2 gm, Route: IVPB, ONCALL, Dosing Weight 91.818, kg, Start date: 04/24/14 9:00:0 0, Duration: 30 day, Stop date: 05/24/14 8:59:00 Start Date: 04/24/14 Stop Date: 04/24/14 Status: Completed ceFAZolin 2 gm, 100 mL, Route: IVPB, Drug form: INJ, ONCALL, Dosing Weight 91.023, kg, Sta rt date: 05/01/14 13:00:00, Duration: 30 day, Stop date: 05/31/14 12:59:00 Notes: Same as: Ancef Start Date: 05/01/14 Stop Date: 05/03/14 Status: Discontinued Cepacol Dual Relief Sore Throat Ruiz 5% topical spray 1 spray, Route: MUCOUS MEM, Drug Form: SOLN, Dosing Weight 91.023, kg, Q2H, PRN Sore Throat, Start date: 04/25/14 12:11:00, Duration: 30 day, Stop date: 5 12:10:00 Start Date: 04/25/14 Stop Date: 04/25/14 Status: Deleted clarithromycin 250 mg oral tablet 250 mg=1 tab, PO, [id number], # 28 tab, 0 Refill(s) Start Date: 05/03/14 Stop Date: 05/17/14 Status: Ordered clindamycin + Sodium Chloride 0.9% IV 100 mL 900 mg, 6 mL, Route: IVPB, Drug form: INJ, PRE OP, Dosing Weight 91.023, kg, Sta rt date: 05/01/14 13:00:00, Duration: 30 day, Stop date: 05/31/14 12:59:00 Notes: (Same As: Cleocin) Start Date: 05/01/14 Stop Date: 05/01/14 Status: Discontinued cyclobenzaprine 10 mg, 1 tab, Route: PO, Drug form: TAB, TID, Dosing Weight 91.023, kg, PRN as n eeded for muscle spasm, Start date: 04/28/14 9:17:00, Stop date: 05/28/14 9:16:0 0 Notes: (Same As: Flexeril) Start Date: 04/28/14 Stop Date: 05/03/14 Status: Discontinued Dilaudid 0.5 mg, 0.5 mL, Route: IV, Drug form: INJ, Q3H, Dosing Weight 91.023, kg, PRN Pa in Score 7-10, Start date: 04/24/14 18:31:00, Duration: 30 day, Stop date: 05/24 18:30:00 Start Date: 04/24/14 Stop Date: 05/03/14 Status: Discontinued Dilaudid 0.5 mg, 0.5 mL, Route: IV, Drug form: INJ, POST OP, Dosing Weight 91.023, kg, KS N Pain Score 7-10, Start date: 04/24/14 13:35:00, Duration: 30 day, Stop date: 0 05/24/14 13:34:00 Start Date: 04/24/14 Stop Date: 05/03/14 Status: Discontinued enoxaparin 30 mg, 0.3 mL, Route: SUB-Q, Drug form: INJ, [id number], Dosing Weight 91.023, kg, Start date: 04/25/14 1:19:00, Duration: 30 day, Stop date: 05/24/14 13:19:00 Notes: (Same as: Lovenox) Start Date: 04/25/14 Stop Date: 04/29/14 Status: Discontinued Flagyl 500 mg, 100 mL, Route: IVPB, Drug form: INJ, [id number], Dosing Weight 91.023, kg, S tart date: 04/24/14 14:00:00, Duration: 30 day, Stop date: 05/24/14 8:00:00 Notes: (Same as: Flagyl) Avoid alcohol. Start Date: 04/24/14 Stop Date: 04/24/14 Status: Discontinued gabapentin 100 mg oral capsule 100 mg, 1 cap, Route: PO, Drug form: CAP, TID, Dosing Weight 91.023, kg, Start d ate: 04/28/14 13:00:00, Duration: 30 day, Stop date: 05/28/14 9:00:00 Notes: (Same as: Neurontin) Start Date: 04/28/14 Stop Date: 04/29/14 Status: Discontinued heparin 5000 units/mL injectable solution 5,000 unit, 1 mL, Route: SUB-Q, Drug form: INJ, ONCE, Dosing Weight 92.273, kg, Start date: 04/24/14 8:44:00, Stop date: 04/24/14 8:44:00 Start Date: 04/24/14 Stop Date: 04/24/14 Status: Completed ketorolac 30 mg, 1 mL, Route: IVP, Drug form: INJ, Q6H, Dosing Weight 91.023, kg, Start da te: 04/24/14 18:00:00, Duration: 6 doses or times, Stop date: 04/26/14 0:00:00 Notes: (Same as:Toradol) IV bolus must be given >15 seconds. Give IM administration slowly and deeply into the muscle. Not for use > 4 days Start Date: 04/24/14 Stop Date: 04/26/14 Status: Completed Lactated Ringers Injection IV 1,000 mL 1,000 mL, Rate: 125 ml/hr, Infuse over: 8 hr, Route: IV, Dosing Weight 91.023 kg , Total Volume: 1,000, Start date: 04/24/14 13:23:00, Duration: 30 day, Stop derrick e: 05/24/14 13:22:00 Start Date: 04/24/14 Stop Date: 04/26/14 Status: Discontinued Lactated Ringers Injection IV 1,000 mL 1,000 mL, Rate: 125 ml/hr, Infuse over: 8 hr, Route: IV, Dosing Weight 91.818 kg , Total Volume: 1,000, Start date: 04/24/14 8:44:00, Duration: 30 day, Stop date : 05/24/14 8:43:00 Start Date: 04/24/14 Stop Date: 04/24/14 Status: Voided With Results Levaquin 750 mg, 150 mL, Route: IVPB, Drug form: SOLN, [id number], Dosing Weight 91.023, kg, Start date: 04/27/14 14:00:00, Duration: 30 day, Stop date: 05/25/14 14:00:00 Notes: (Same as:Levaquin) Start Date: 04/27/14 Stop Date: 2/4/15 Status: Discontinued Levaquin 750 mg oral tablet 750 mg=1 tab, PO, Q48H, # 7 tab, 0 Refill(s) Start Date: 05/03/14 Stop Date: 05/17/14 Status: Ordered levofloxacin 500 mg, 100 mL, Route: IVPB, Drug form: INJ, [id number], Dosing Weight 91.023, kg, Start date: 04/24/14 14:00:00, Duration: 30 day, Stop date: 05/23/14 14:00:00 Notes: (Same as:Levaquin) Start Date: 04/24/14 Stop Date: 04/24/14 Status: Discontinued Lovenox 30 mg, 0.3 mL, Route: SUB-Q, Drug form: INJ, [id number], Dosing Weight 91.023, kg, For CrCl <30mL/min, Start date: 04/30/14 14:00:00, Duration: 30 day, Stop date: 05/29/14 14:00:00 Notes: (Same as: Lovenox) Start Date: 04/30/14 Stop Date: 05/03/14 Status: Discontinued [id number] 1,000 mL 1,000 mL, Rate: 100 ml/hr, Infuse over: 10 hr, Route: IV, Dosing Weight 91.818 k g, Total Volume: 1,000, Start date: 04/24/14 8:44:00, Duration: 30 day, Stop derrick e: 05/24/14 8:43:00 Start Date: 04/24/14 Stop Date: 04/24/14 Status: Deleted metoclopramide 10 mg, 2 mL, Route: IVP, Drug form: INJ, Q8H, Dosing Weight 91.023, kg, Start da te: 04/24/14 16:00:00, Duration: 30 day, Stop date: 05/24/14 8:00:00 Notes: (Same as: Reglan) Start Date: 04/24/14 Stop Date: 04/29/14 Status: Discontinued metoprolol 2.5 mg, 2.5 mL, Route: IVP, Drug form: INJ, Q6H, Dosing Weight 91.023, kg, PRN E levated BP, Systolic BP >180 or Diastolic BP >100, Start date: 04/24/14 13:23:00, Duration: 30 day, Stop date: 05/24/14 13:22:00 Notes: (Same as: Lopressor)Push over 2 minutes Start Date: 04/24/14 Stop Date: 05/03/14 Status: Discontinued Neurontin 100 mg oral capsule 100 mg, 1 cap, Route: PO, Drug form: CAP, Daily, Dosing Weight 91.023, kg, Start date: 04/30/14 9:00:00, Duration: 30 day, Stop date: 05/29/14 9:00:00 Notes: (Same as: Neurontin) Start Date: 04/30/14 Stop Date: 05/03/14 Status: Discontinued NS (Bolus) IV 500 mL, 500 ml/hr, Infuse Over: 1 hr, Route: IV, 500, Drug form: INJ, ONCE, Prio rity: STAT, Dosing Weight 91.023 kg, Start date: 04/26/14 10:07:00, Duration: 1 doses or times, Stop date: 04/26/14 10:07:00 Start Date: 04/26/14 Stop Date: 04/26/14 Status: Completed NS 1000 mL 1,000 mL, Rate: 80 ml/hr, Infuse over: 12.5 hr, Route: IV, Dosing Weight 91.023 kg, Total Volume: 1,000, Start date: 04/26/14 10:07:00, Duration: 30 day, Stop d ate: 05/26/14 10:06:00 Start Date: 04/26/14 Stop Date: 04/28/14 Status: Discontinued ondansetron 4 mg, Route: IVP, Q12H, Dosing Weight 91.023, kg, PRN Nausea & Vomiting, Start date: 04/24/14 13:23:00, Duration: 30 day, Stop date: 05/24/14 13:22:00 Start Date: 04/24/14 Stop Date: 04/24/14 Status: Discontinued ondansetron 4 mg, 2 mL, Route: IVP, Drug form: INJ, Q6H, Dosing Weight 91.023, kg, PRN Nause a & Vomiting, Start date: 04/24/14 15:55:00, Stop date: 05/24/14 13:21:00 Notes: (Same as: Zofran) Start Date: 04/24/14 Stop Date: 05/03/14 Status: Discontinued phenol topical 1.4% spray 1 spray, Route: PO, Q2H, Drug form: SPRY, PRN Sore Throat, Start date: 04/25/14 13:04:00, Duration: 30 day, Stop date: 05/25/14 13:03:00 Start Date: 04/25/14 Stop Date: 05/03/14 Status: Discontinued promethazine 12.5 mg, 0.5 mL, Route: IM, Drug form: INJ, Q4H, Dosing Weight 91.023, kg, PRN N ausea & Vomiting, Start date: 04/24/14 13:23:00, Duration: 30 day, Stop date: 05/24/14 13:22:00 Notes: Do not give IV push. (Same as: Phenergan) Start Date: 04/24/14 Stop Date: 05/03/14 Status: Discontinued Reglan 5 mg, 1 mL, Route: IV, Drug form: INJ, [id number], Dosing Weight 91.023, kg, Start d ate: 04/29/14 17:00:00, Duration: 30 day, Stop date: 05/29/14 9:00:00 Notes: (Same as: Reglan) Start Date: 04/29/14 Stop Date: 05/01/14 Status: Discontinued scopolamine 1.5 mg transdermal film 1 patch, Route: TOP, Drug Form: ERFILM, Dosing Weight 92.273, kg, ONCE, Start da te: 04/24/14 8:44:00, Stop date: 04/24/14 8:44:00 Start Date: 04/24/14 Stop Date: 04/24/14 Status: Completed sodium bicarbonate 1,300 mg, 2 tab, Route: PO, Drug form: TAB, Q12H, Dosing Weight 91.023, kg, Star t date: 04/30/14 21:00:00, Duration: 30 day, Stop date: 05/30/14 9:00:00 Notes: "Dissolve tablet in a glass of water prior to oral administration. STOMA CH WARNING: To avoid serious injury, do not take until tablet is completely diss olved. It is very important not to take this product when overly full from food or drink." Start Date: 04/30/14 Stop Date: 05/03/14 Status: Discontinued sodium bicarbonate 650 mg oral tablet 1,300 mg=2 tab, PO, Q12H, # 56 tab, 0 Refill(s) Start Date: 05/03/14 Stop Date: 05/17/14 Status: Ordered thiamine + Sodium Chloride 0.9% IV 49 mL 100 mg, 1 mL, Route: IVPB, Drug form: INJ, Daily, Dosing Weight 91.023, kg, Prio rity: NOW, Start date: 04/25/14 12:18:00, Duration: 30 day, Stop date: 05/25/14 9:00:00 Notes: (Same As: Vitamin B1)PROTECT FROM LIGHT Start Date: 04/25/14 Stop Date: 04/26/14 Status: Discontinued vancomycin 1 gm, 200 mL, Route: IVPB, Drug form: INJ, [id number], Dosing Weight 91.023, kg, St art date: 04/24/14 19:00:00, Duration: 30 day, Stop date: 05/24/14 7:00:00 Start Date: 04/24/14 Stop Date: 04/28/14 Status: Discontinued Vitamin B1 100 mg, 1 tab, Route: PO, Drug form: TAB, Daily, Start date: 04/27/14 9:00:00, D uration: 30 day, Stop date: 05/26/14 9:00:00 Notes: (Same As: Vitamin B1) Start Date: 04/27/14 Stop Date: 05/03/14 Status: Discontinued Zofran 4 mg, Route: IVP, Drug form: INJ, ONCE, Dosing Weight 91.023, kg, Start date: 13:34:00, Stop date: 04/24/14 13:34:00 Start Date: 04/24/14 Stop Date: 04/24/14 Status: Completed Zosyn 3.375 gm, 100 mL, Route: IVPB, Drug form: PDR/INJ, [id number], Dosing Weight 91.023 , kg, Start date: 04/27/14 16:00:00, Duration: 30 day, Stop date: 05/27/14 4:00: 00 Notes: (Same as: Zosyn)Infuse over 4 hours. Activate and reconstitute before us e. Dosing based on Piperacillin component Start Date: 04/27/14 Stop Date: 04/27/14 Status: Canceled Zosyn 3.375 gm, 100 mL, Route: IVPB, Drug form: PDR/INJ, [id number], Dosing Weight 91.023, kg, Start date: 04/24/14 19:00:00, Duration: 30 day, Stop date: 05/24/14 11:00: 00 Notes: (Same as: Zosyn)Infuse over 4 hours. Activate and reconstitute before us e. Dosing based on Piperacillin component Start Date: 04/24/14 Stop Date: 04/27/14 Status: Discontinued Results ELECTROLYTES 1 2 3 Most recent to oldest [Reference Range]: 144 mEq/L (05/03/14 5:49 AM) 144 mEq/L (05/02/14 6:49 AM) 142 mEq/L (05/01/14 4:03 AM) Sodium Lvl [135-145 mEq/L] 3.7 mEq/L (05/03/14 5:49 AM) 3.9 mEq/L (05/02/14 6:49 AM) 4.0 mEq/L (05/01/14 4:03 AM) Potassium Lvl [3.5-5.1 mEq/L] 107 mEq/L (05/03/14 5:49 AM) 112 mEq/L *HI* (05/02/14 6:49 AM) 108 mEq/L (05/01/14 4:03 AM) Chloride Lvl [95-109 mEq/L] 25 mEq/L (05/03/14 5:49 AM) 22 mEq/L *LOW* (05/02/14 6:49 AM) 24 mEq/L (05/01/14 4:03 AM) CO2 [24-32 mEq/L] 15.7 mEq/L (05/03/14 5:49 AM) 13.9 mEq/L (05/02/14 6:49 AM) 14.0 mEq/L (05/01/14 4:03 AM) AGAP [10.0-20.0 mEq/L] CHEM PANEL 1 2 3 Most recent to oldest [Reference Range]: 7.0 mg/dL *HI* (05/03/14 5:49 AM) 7.6 mg/dL *HI* (05/02/14 6:49 AM) 8.0 mg/dL *HI* (05/01/14 4:03 AM) Creatinine Lvl [0.5-1.4 mg/dL] 6 mL/min/1.73m2 1 *NA* (05/03/14 5:49 AM) 6 mL/min/1.73m2 2 *NA* (05/02/14 6:49 AM) 6 mL/min/1.73m2 3 *NA* (05/01/14 4:03 AM) eGFR 44 mg/dL *HI* (05/03/14 5:49 AM) 46 mg/dL *HI* (05/02/14 6:49 AM) 42 mg/dL *HI* (05/01/14 4:03 AM) BUN [7-22 mg/dL] 4 *LOW* (04/28/14 9:18 AM) B/C Ratio [6-25] 99 mg/dL 4 (05/03/14 5:49 AM) 98 mg/dL 5 (05/02/14 6:49 AM) 92 mg/dL 6 (05/01/14 4:03 AM) Glucose Lvl [70-99 mg/dL] 6.0 g/dL *LOW* (04/30/14 5:02 AM) 6.7 g/dL (04/28/14 9:18 AM) Total Protein [6.4-8.4 g/dL] 2.3 g/dL *LOW* (04/30/14 5:02 AM) 2.5 g/dL *LOW* (04/28/14 9:18 AM) Albumin Lvl [3.5-5.0 g/dL] 3.7 g/dL (04/30/14 5:02 AM) 4.2 g/dL *HI* (04/28/14 9:18 AM) Globulin [2.0-4.0 g/dL] 0.6 *LOW* (04/30/14 5:02 AM) 0.6 *LOW* (04/28/14 9:18 AM) A/G Ratio [0.7-1.6] 8.8 mg/dL (05/03/14 5:49 AM) 8.8 mg/dL (05/02/14 6:49 AM) 8.6 mg/dL (05/01/14 4:03 AM) Calcium Lvl [8.5-10.5 mg/dL] 4.7 mg/dL *HI* (04/30/14 5:02 AM) Phosphorus [2.5-4.5 mg/dL] 1.8 mg/dL (04/30/14 5:02 AM) Magnesium Lvl [1.8-2.4 mg/dL] 15 unit/L (04/30/14 5:02 AM) 16 unit/L (04/28/14 9:18 AM) ALT [0-65 unit/L] 16 unit/L (04/30/14 5:02 AM) 17 unit/L (04/28/14 9:18 AM) AST [0-37 unit/L] 107 unit/L (04/30/14 5:02 AM) 118 unit/L (04/28/14 9:18 AM) Alk Phos [39-136 unit/L] 0.4 mg/dL (04/30/14 5:02 AM) 0.5 mg/dL (04/28/14 9:18 AM) Bili Total [0.2-1.3 mg/dL] 0.1 mg/dL (04/30/14 5:02 AM) Bili Direct [0.0-0.3 mg/dL] 0.3 mg/dL (04/30/14 5:02 AM) Bili Indirect [0.0-1.0 mg/dL] 1Result Comment: The eGFR is calculated using [...] clinical guidelines of the [place] [employer]. TOXICOLOGY 1 2 3 Most recent to oldest [Reference Range]: 0900 *NA* (04/26/14 10:00 AM) Vanco Tr TND 14.2 ug/ml 7 *NA* (04/26/14 10:00 AM) Vanco Tr 7Interpretive Data: Therapeutic Range: Trough: 10 - 20 ug/mL Peak: 20 - 40 ug/mL Potential Toxicity: >80 ug/mL ENDOCRINOLOGY 1 2 3 Most recent to oldest [Reference Range]: Negative *NA* (04/24/14 8:58 AM) S Preg [Negative] URINE CHEM 1 2 3 Most recent to oldest [Reference Range]: 77.1 mg/dL 8 *NA* (04/28/14 1:15 PM) U Creatinine 30.9 mg/dL 9 *NA* (04/28/14 1:15 PM) U Protein 0.4 *NA* (04/28/14 1:15 PM) U Prot/Creat 56 mEq/L 10 *NA* (04/28/14 1:15 PM) U Sodium 0-2 *ABN* (05/01/14 10:50 PM) None Seen (04/28/14 1:15 PM) U Eos [None Seen] 8Interpretive Data: No established reference ranges. 9Interpretive Data: No established reference ranges. 10Interpretive Data: No established reference ranges. URINE AND STOOL 1 2 3 Most recent to oldest [Reference Range]: Clear (04/28/14 1:15 PM) UA Turbidity [Clear] Ltyellow *NA* (04/28/14 1:15 PM) UA Color 5.0 (04/28/14 1:15 PM) UA pH [5.0-8.0] 1.006 (04/28/14 1:15 PM) UA Spec Grav [<=1.030] Negative mg/dL *NA* (04/28/14 1:15 PM) UA Glucose [Negative mg/dL] Small *ABN* (04/28/14 1:15 PM) UA Blood [Negative] Negative mg/dL *NA* (04/28/14 1:15 PM) UA Ketones [Negative mg/dL] Negative mg/dL (04/28/14 1:15 PM) UA Protein [Negative mg/dL] <=1.0 mg/dL *NA* (04/28/14 1:15 PM) UA Urobilinogen [0.1-1.0 mg/dL] Negative *NA* (04/28/14 1:15 PM) UA Bili [Negative] Negative (04/28/14 1:15 PM) UA Leuk Est [Negative] Negative (04/28/14 1:15 PM) UA Nitrite [Negative] 3 /HPF (04/28/14 1:15 PM) UA WBC [0-5 /HPF] 4 /HPF *HI* (04/28/14 1:15 PM) UA RBC [0-2 /HPF] Few /LPF *NA* (04/28/14 1:15 PM) UA Sq Epi [Few /LPF] IMMUNOLOGY 1 2 3 Most recent to oldest [Reference Range]: Negative *NA* (05/01/14 4:03 AM) Hep Bs Ag [Negative] HEMATOLOGY 1 2 3 Most recent to oldest [Reference Range]: 7.1 K/CMM (05/02/14 6:49 AM) 6.8 K/CMM (05/01/14 4:03 AM) 5.2 K/CMM (04/29/14 6:35 AM) WBC [3.7-10.4 K/CMM] 2.90 M/CMM *LOW* (05/02/14 6:49 AM) 2.98 M/CMM *LOW* (05/01/14 4:03 AM) 3.21 M/CMM *LOW* (04/29/14 6:35 AM) RBC [4.20-5.40 M/CMM] 8.7 g/dL *LOW* (05/02/14 6:49 AM) 8.8 g/dL *LOW* (05/01/14 4:03 AM) 9.5 g/dL *LOW* (04/29/14 6:35 AM) Hgb [12.0-16.0 g/dL] 24.8 % *LOW* (05/02/14 6:49 AM) 25.7 % *LOW* (05/01/14 4:03 AM) 28.1 % *LOW* (04/29/14 6:35 AM) Hct [36.0-48.0 %] 85.4 fL (05/02/14 6:49 AM) 86.2 fL (05/01/14 4:03 AM) 87.5 fL (04/29/14 6:35 AM) MCV [80.0-98.0 fL] 29.9 pg (05/02/14 6:49 AM) 29.4 pg (05/01/14 4:03 AM) 29.5 pg (04/29/14 6:35 AM) MCH [27.0-31.0 pg] 35.0 g/dL (05/02/14 6:49 AM) 34.1 g/dL (05/01/14 4:03 AM) 33.7 g/dL (04/29/14 6:35 AM) MCHC [32.0-36.0 g/dL] 14.9 % *HI* (05/02/14 6:49 AM) 15.1 % *HI* (05/01/14 4:03 AM) 15.2 % *HI* (04/29/14 6:35 AM) RDW [11.5-14.5 %] 274 K/CMM (05/02/14 6:49 AM) 265 K/CMM (05/01/14 4:03 AM) 217 K/CMM (04/29/14 6:35 AM) Platelet [133-450 K/CMM] 8.3 fL (05/02/14 6:49 AM) 8.4 fL (05/01/14 4:03 AM) 9.1 fL (04/29/14 6:35 AM) MPV [7.4-10.4 fL] 71.9 % (05/02/14 6:49 AM) 65.7 % (05/01/14 4:03 AM) 71.1 % (04/29/14 6:35 AM) Segs [45.0-75.0 %] 14.4 % *LOW* (05/02/14 6:49 AM) 17.9 % *LOW* (05/01/14 4:03 AM) 14.8 % *LOW* (04/29/14 6:35 AM) Lymphocytes [20.0-40.0 %] 10.7 % (05/02/14 6:49 AM) 11.7 % (05/01/14 4:03 AM) 10.0 % (04/29/14 6:35 AM) Monocytes [2.0-12.0 %] 2.6 % (05/02/14 6:49 AM) 4.3 % *HI* (05/01/14 4:03 AM) 3.9 % (04/29/14 6:35 AM) Eosinophils [0.0-4.0 %] 0.4 % (05/02/14 6:49 AM) 0.4 % (05/01/14 4:03 AM) 0.2 % (04/29/14 6:35 AM) Basophils [0.0-1.0 %] 5.1 K/CMM (05/02/14 6:49 AM) 4.5 K/CMM (05/01/14 4:03 AM) 3.7 K/CMM (04/29/14 6:35 AM) Segs-Bands # [1.5-8.1 K/CMM] 1.0 K/CMM (05/02/14 6:49 AM) 1.2 K/CMM (05/01/14 4:03 AM) 0.8 K/CMM *LOW* (04/29/14 6:35 AM) Lymphocytes # [1.0-5.5 K/CMM] 0.8 K/CMM (05/02/14 6:49 AM) 0.8 K/CMM (05/01/14 4:03 AM) 0.5 K/CMM (04/29/14 6:35 AM) Monocytes # [0.0-0.8 K/CMM] 0.2 K/CMM (05/02/14 6:49 AM) 0.3 K/CMM (05/01/14 4:03 AM) 0.2 K/CMM (04/29/14 6:35 AM) Eosinophils # [0.0-0.5 K/CMM] Medications Administered During Your Visit No data [...] 1smoked as a teenager Assessment and Plan Extracted from: Title: Clinical Document Author: Christian Crump MD Date: 05/03/14 Progress Note Nephrology SUBJECTIVE atn secondary to contrast, sepsis , and abx PLAN & TREATMENT improved renal function cancelled biopsy and dialysis. closer to euvolemia continue abx per team stable k, DISCHARGE the patient will see in one week, labs schedule given to patient VitalsTmp(F)Tmp(C)[id number] 05/03 12:3098.436.60qobk258/86---8414--------- 05/03 07:4597.436.51wwwp348/90---96995--------- 05/03 04:1198.837.34uhyn582/84---20815--------- 05/02 23:4298.837.78vnnb729/88---9816--------- 05/02 19:1698.236.74ulqx642/78---8416--------- 24 Hr Tmax: 99.5F (37.50c) at 05/02 15:58Vital Signs are the last 5 in the past 48 hours. 24 Hr Tmin: 97.4F (36.33c) at 05/03 07:45Weights are the last 5 in 60 days, plus initial. DateWt(kg)Wt(lb)Ht(cm)Ht(in)MethodBMIBSA 04/24 (initial) 91.02 200.25Measured 36.72.00 82262.48 62.00Stated (no point of care glucose results charted in last 24 hours) Most Recent Scores: 05/03/14[place] Mack Fall Score0 05/03/14Pain Intensity NRS (0-10)0 05/02/14Glasgow Coma Score15 05/02/14Braden Score21 Lines, Tubes, and Drains: 05/01/2014 07:25 Peripheral Lines: Forearm Left Over the needle catheter 04/24/2014 13:30 Gastric Tubes: Nasogastric Nostril, right 14 [place] 04/24/2014 12:48 Surgical Procedures: 04/24/14 12:11LAPAROSCOPIC GASTRIC BAND REMOVAL [id number] Surgeon: Bacilio Resendiz MD (Service: GEN) Input/Output RecordInOutBal 0424hr Tot 750 750 0 0324hr Tot 1300 2200 -900 Physical Exam alert, [...] None Labs (Last four charted values) WBC 7.1(MAY 02)6.8(MAY 01)5.2(APR 29)5.7(APR 28) Hgb L 8.7(MAY 02)L 8.8(MAY 01)L 9.5(APR 29)L 10.9(APR 28) Hct L 24.8(MAY 02)L 25.7(MAY 01)L 28.1(APR 29)L 32.2(APR 28) Plt 274(MAY 02)265(MAY 01)217(APR 29)228(APR 28) Na 144(MAY 03)144(MAY 02)142(MAY 01)140(APR 30) K 3.7(MAY 03)3.9(MAY 02)4.0(MAY 01)3.6(APR 30) CO2 25(MAY 03)L 22(MAY 02)24(MAY 01)L 19(APR 30) Cl 107(MAY 03)H 112(MAY 02)108(MAY 01)109(APR 30) Cr H 7.0(MAY 03)H 7.6(MAY 02)H 8.0(MAY 01)H 7.8(APR 30) BUN H 44(MAY 03)H 46(MAY 02)H 42(MAY 01)H 36(APR 30) Glucose Random 99(B )98(FEB 03)92(B )89(APR 30) Mg 1.8(APR 30) Phos H 4.7(APR 30) Ca 8.8(MAY 03)8.8(MAY 02)8.6(MAY 01)8.7(APR 30)
--- OUTSIDE RECORDS SUMMARY | 2018-11-02 09:03 | XMS REPORT | Summary of Care ---
Author Organization Unknown Address Unknown Phone Unavailable Encounter HQ Elisas(FIN) [id number] Date(s): 07/28/14 - 07/28/14 [facility] [address] [place] [address] [phone] Discharge Disposition: Home Physician Attending: Christian Crump [...] 1 oldest [Reference Range]: Sodium Lvl [135-145 140 mEq/L mEq/L] (07/28/14 4:45 PM) Potassium Lvl 3.9 mEq/L [3.5-5.1 mEq/L] (07/28/14 4:45 PM) Chloride Lvl [95-109 104 mEq/L mEq/L] (07/28/14 4:45 PM) CO2 [24-32 mEq/L] 26 mEq/L (07/28/14 4:45 PM) AGAP [10.0-20.0 13.9 mEq/L mEq/L] (07/28/14 4:45 PM) CHEM PANEL Most recent to 1 oldest [Reference Range]: Creatinine Lvl 1.1 mg/dL [0.5-1.4 mg/dL] (07/28/14 4:45 PM) eGFR 61 mL/min/1.73m2 1 *NA* (07/28/14 4:45 PM) BUN [7-22 mg/dL] 19 mg/dL (07/28/14 4:45 PM) Glucose Lvl [70-99 98 mg/dL 2 mg/dL] (07/28/14 4:45 PM) Uric Acid [2.5-7.0 6.0 mg/dL mg/dL] (07/28/14 4:45 PM) Calcium Lvl 9.4 mg/dL [8.5-10.5 mg/dL] (07/28/14 4:45 PM) Phosphorus [2.5-4.5 3.7 mg/dL mg/dL] (07/28/14 4:45 PM) Magnesium Lvl 1.8 mg/dL [1.8-2.4 mg/dL] (07/28/14 4:45 PM) 1Result Comment: The eGFR is calculated [...] values reflect the clinical guidelines of the [place] [employer]. URINE AND STOOL Most recent to 1 oldest [Reference Range]: UA Turbidity [Clear] Slight *ABN* (07/28/14 4:45 PM) UA Color [Yellow] Yellow *NA* (07/28/14 4:45 PM) UA pH [5.0-8.0] 5.0 (07/28/14 4:45 PM) UA Spec Grav 1.023 [<=1.030] (07/28/14 4:45 PM) UA Glucose [Negative Negative mg/dL mg/dL] *NA* (07/28/14 4:45 PM) UA Blood [Negative] Negative (07/28/14 4:45 PM) UA Ketones [Negative Trace mg/dL mg/dL] *ABN* (07/28/14 4:45 PM) UA Protein [Negative 30 mg/dL mg/dL] *ABN* (07/28/14 4:45 PM) UA Urobilinogen <=1.0 mg/dL [0.1-1.0 mg/dL] *NA* (07/28/14 4:45 PM) UA Bili [Negative] Negative *NA* (07/28/14 4:45 PM) UA Leuk Est Negative [Negative] (07/28/14 4:45 PM) UA Nitrite Negative [Negative] (07/28/14 4:45 PM) UA WBC [0-5 /HPF] 3 /HPF (07/28/14 4:45 PM) UA RBC [0-2 /HPF] 2 /HPF (07/28/14 4:45 PM) UA Sq Epi [Few /LPF] Many /LPF *ABN* (07/28/14 4:45 PM) UA Mucus [None Seen Moderate /LPF /LPF] *ABN* (07/28/14 4:45 PM) UA Sperm [None Seen Occasional /HPF /HPF] *ABN* (07/28/14 4:45 PM) HEMATOLOGY Most recent to 1 oldest [Reference Range]: WBC [3.7-10.4 K/CMM] 9.2 K/CMM (07/28/14 4:45 PM) RBC [4.20-5.40 3.87 M/CMM M/CMM] *LOW* (07/28/14 4:45 PM) Hgb [12.0-16.0 g/dL] 12.2 g/dL (07/28/14 4:45 PM) Hct [36.0-48.0 %] 34.3 % *LOW* (07/28/14 4:45 PM) MCV [80.0-98.0 fL] 88.7 fL (07/28/14 4:45 PM) MCH [27.0-31.0 pg] 31.5 pg *HI* (07/28/14 4:45 PM) MCHC [32.0-36.0 35.5 g/dL g/dL] (07/28/14 4:45 PM) RDW [11.5-14.5 %] 13.4 % (07/28/14 4:45 PM) Platelet [133-450 306 K/CMM K/CMM] (07/28/14 4:45 PM) MPV [7.4-10.4 fL] 8.7 fL (07/28/14 4:45 PM) Segs [45.0-75.0 %] 73.4 % (07/28/14 4:45 PM) Lymphocytes 18.0 % [20.0-40.0 %] *LOW* (07/28/14 4:45 PM) Monocytes [2.0-12.0 6.0 % %] (07/28/14 4:45 PM) Eosinophils [0.0-4.0 2.1 % %] (07/28/14 4:45 PM) Basophils [0.0-1.0 0.5 % %] (07/28/14 4:45 PM) Segs-Bands # 6.7 K/CMM [1.5-8.1 K/CMM] (07/28/14 4:45 PM) Lymphocytes # 1.7 K/CMM [1.0-5.5 K/CMM] (07/28/14 4:45 PM) Monocytes # [0.0-0.8 0.5 K/CMM K/CMM] (07/28/14 4:45 PM) Eosinophils # 0.2 K/CMM [0.0-0.5 K/CMM] (07/28/14 4:45 PM) Immunizations Vaccine Date Refusal Reason influenza virus vaccine, inactivated 03/08/14 Procedures Procedure Date Related Diagnosis Body Site Laparoscopic adjustable gastric banding 01/2014 CS - section1 Endometrial ablation2 Esophagogastroduodenoscopy Operation3 1x4 2novasure 3Lap band port removed due [...]
--- OUTSIDE RECORDS SUMMARY | 2018-11-02 09:03 | XMS REPORT ---
Author [facility] Address Unknown Phone Unavailable Care Team Providers Care Project Design Engineer Name Role Phone Unavailable Unavailable Payers Payer Name Policy Type Policy Number Effective Date Expiration Date Problems This patient has no known problems. Allergies, Adverse Reactions, Alerts Allergy Name Allergy Type Status Severity Reaction(s) Onset Date Inactive Date Treating Clinician Comments No Known Allergies DA Active U 2018-07-01 00:00:00 adhesive tape DA Active MO 2018-07-01 00:00:00 No Known Drug Intolerances DA Active U 2001-09-06 00:00:00 No Known Contrast Allergies DA Active U 2001-09-06 00:00:00 No Known Drug Allergies DA Active U 2001-09-06 00:00:00 No Known Food Allergies DA Active U 2001-09-06 00:00:00 No Known Other Allergies DA Active U 2001-09-06 00:00:00 Medications This patient has no known medications. Results Test Description Test Time Test Comments Text Results Atomic Results Result Comments DUODENUM,BIOPSY 2018-07-14 13:28:00 RUN DATE: 07/14/18 [place] - Lab PAGE 1 RUN TIME: 1328 Specimen Inquiry RUN USER: INTERFACE PATIENT: NIDIA LANDRY LOC: ROBERTO U #: [id number] AGE/SX: 48/F ROOM: RE07/09/18[facility] DR: Jasmin Zamorano MD : 68 BED: DIS: STATUS: [facility] TLOC: SPEC #: [id number] RECD: 07/12/18 STATUS: SHAKEEL NORRIS #: [id number] BAILEY: 07/09/[address] [facility] [address]: Jasmin Zamorano MD ENTERED: 07/12/18 SP TYPE: BX DUODEN OTHR DR: Maggie Sharma MD ORDERED: GROSS COPIES TO: Jasmin Zamorano MD [address] [facility] [place] [address] Maggie Sharma MD [address] [place] [address] PROCEDURES: GROSS (07/13/181406) TISSUES: 1. DUODENUM, NOS - BX 2. ANTRUM - /BODY BX 3. ESOPHAGUS, NOS - DISTAL BX 4. ESOPHAGUS, NOS - MIDDLE BX 5. COLON, NOS - RANDOM BX 6. SIGMOID - BX CLINICAL HISTORY COLLECTION DATE; 07/09/2018 DYSPHAGIA, EPIGASTRIC PAIN, DIARRHEA DUODENITIS, ESOPHAGEAL STENOSIS, ESOPHAGITIS, GASTRITIS, DIVERTICULOSIS, SIGMOID COLITIS, INTERNAL HEMORRHOIDS, LAP BAND FINAL DIAGNOSIS Duodenum, biopsy: DUODENAL MUCOSA WITH UNREMARKABLE VILLOUS ARCHITECTURE AND MILD-MODERATE CHRONIC INFLAMMATION IN LAMINA PROPRIA NO INTRAEPITHELIAL INFLAMMATION PRESENT MILD TOBI GLAND HYPERPLASIA NEGATIVE FOR MALIGNANCY Gastric antrum and body, biopsy: PATCHY MILD CHRONIC GASTRITIS, EDEMA AND MILD REACTIVE EPITHELIAL CHANGE NO ACUTE INFLAMMATORY INFILTRATE PRESENT CONTINUED ON NEXT PAGE RUN DATE: 07/14/18 [place] - Lab PAGE 2 RUN TIME: 1328 Specimen Inquiry RUN USER: INTERFACE SPEC #: [id number] PATIENT: NIDIA LANDRY #[id number] (Continued) FINAL DIAGNOSIS (Continued) NEGATIVE FOR INTESTINAL METAPLASIA NEGATIVE FOR HELICOBACTER ORGANISMS NEGATIVE FOR MALIGNANCY Distal esophagus, biopsy: MIXED SQUAMOUS AND GLANDULAR EPITHELIUM WITH ELONGATION OF SQUAMOUS PAPILLAE, BASEL CELL HYPERPLASIA AND FEW INTRAEPITHELIAL LYMPHOCYTES NO INCREASED NUMBER OF INTRAEPITHELIAL EOSINOPHILS MILD CHRONIC INFLAMMATION IN GLANDULAR EPITHELIUM NO GOBLET CELL METAPLASIA PRESENT NEGATIVE FOR DYSPLASIA AND MALIGNANCY REFLUX ESOPHAGITIS Middle esophagus, biopsy: SQUAMOUS MUCOSA WITH MILD ELONGATION OF SQUAMOUS PAPILLAE, BASEL CELL HYPERPLASIA AND FEW INTRAEPITHELIAL LYMPHOCYTES NO INCREASED NUMBER OF INTRAEPITHELIAL EOSINOPHILS NO GLANDULAR EPITHELIUM PRESENT NEGATIVE FOR MALIGNANCY COMPATIBLE WITH REFLUX ESOPHAGITIS Random colon, biopsy: COLONIC MUCOSA WITH MILD CHRONIC INFLAMMATION, LYMPHOID AGGREGATES AND REACTIVE EPITHELIAL CHANGE NO CRYPTITIS OR CRYPT DISTORTION NO HISTOLOGIC FEATURES OF MICROSCOPIC COLITIS NO HYPERPLASTIC OR ADENOMATOUS CHANGE PRESENT NEGATIVE FOR MALIGNANCY Sigmoid colon, biopsy: COLONIC MUCOSA WITH MILD CHRONIC INFLAMMATION, LYMPHOID AGGREGATES AND REACTIVE EPITHELIAL CHANGE NO CRYPTITIS OR CRYPT DISTORTION NO HISTOLOGIC FEATURES OF MICROSCOPIC COLITIS NO HYPERPLASTIC OR ADENOMATOUS CHANGE PRESENT NEGATIVE FOR MALIGNANCY RRB/gm D [phone] CONTINUED ON NEXT PAGE RUN DATE: 07/14/18 [place] [facility] PAGE 3 RUN TIME: 1328 Specimen Inquiry RUN USER: INTERFACE SPEC #: [id number] PATIENT: NIDIA LANDRY #[id number] (Continued) MACROSCOPIC The first specimen is received in formalin, labeled with the patient's name, identified as "Duodenum", and consists of multiple portions of cole biopsy tissue measuring from 0.3 to 0.4 cm. It is entirely submitted as (1). The second specimen is received in formalin, labeled with the patient's name, identified as "Antrum and body BX", and consists of multiple pieces of cole biopsy tissue measuring up to 0.3 to 0.4 cm. It is entirely submitted as (2). An H E and Giemsa stain will be prepared. The third specimen is received in formalin, labeled with the patient's name, identified as "Distal esophagus", and consists of two pieces of cole biopsy tissue measuring 0.3 to 0.4 cm. It is entirely submitted as (3). The fourth specimen is received in formalin, labeled with the patient's name, identified as "Middle esophagus BX". It consists of four pieces of cole biopsy tissue measuring from 0.2 to 0.4 cm. It is entirely submitted as (4). The fifth specimen is received in formalin, labeled with the patient's name, identified as "Random colon BX", and consists of multiple pieces of cole biopsy tissue measuring 1.5 x 0.5 x 2 cm in aggregate. It is entirely submitted as (5). The sixth specimen is received in formalin, labeled with the patient's name, identified as "Sigmoid colon BX", and consists of multiple portions of cole biopsy tissue measuring up to 0.2 to 0.4 cm. It is entirely submitted as (6). GROSS PERFORMED AT [facility] [address] [place] [id number] (p)[phone] MICROSCOPIC All of the stains, including any controls performed, stain appropriately. MICROSCOPIC PERFORMED AT [facility] [address] [place] [address] [phone])[phone] PERFORMING SITE Diagnosis performed at: [facility], [address] CONTINUED ON NEXT PAGE RUN DATE: 07/14/18 [facility] PAGE 4 RUN TIME: 1328 Specimen Inquiry RUN USER: INTERFACE SPEC #: [id number] PATIENT: NIDIA LANDRY #[id number] (Continued) PERFORMING SITE (Continued) [place] [id number] Signed SIGNATURE ON FILE Juan Mckeon MD 07/14/18 1328 END OF REPORT BASIC METABOLIC PANEL 2018-07-01 14:17:00 SODIUM (test code=NA) 139 mmol/L 136-145 POTASSIUM (test code=K) 3.7 mmol/L 3.5-5.1 CHLORIDE (test code=CL) 109.0 mmol/L 98-107 CARBON DIOXIDE (test code=CO2) 24.0 mmol/L 21-32 ANION GAP (test code=GAP) 9.7 10-20 GLUCOSE (test code=GLU) 96 mg/dL 74-106 BLOOD UREA NITROGEN (test code=BUN) 10 mg/dL 7-18 GLOMERULAR FILTRATION RATE (test code=GFR) > 60 mL/min >=60 Estimated GFR by using Modified MDRD formula.Chronic kidney disease is defined as either kidney damageor GFR <60 mL/min/1.73 m2 for >3 months. CREATININE (test code=CREAT) 0.70 mg/dL 0.55-1.02 Note change in reference range due to change in reagent. BUN/CREATININE RATIO (test code=BUN/CREA) 14.3 10-20 CALCIUM (test code=CA) 9.1 mg/dL 8.5-10.1 HCG SERUM [id number] 14:17:00* Test Item Value Reference Range Comments HCG SERUM QUAL (test code=HCGQL) NEGATIVE NEGATIVE This HCGQL test is NOT applicable for MALE patients.Check with nurse about probable order error.If Tumor Marker Test needed, nurse should order test "HCGTU"(Test #550.83223) BASIC METABOLIC [id number] 13:56:00* Test Item Value Reference Range Comments SODIUM (test code=NA) 139 mmol/L 136-145 POTASSIUM (test code=K) 3.7 mmol/L 3.5-5.1 CHLORIDE (test code=CL) 109.0 mmol/L 98-107 CARBON DIOXIDE (test code=CO2) 24.0 mmol/L 21-32 ANION GAP (test code=GAP) 9.7 10-20 GLUCOSE (test code=GLU) 96 mg/dL 74-106 BLOOD UREA NITROGEN (test code=BUN) 10 mg/dL 7-18 GLOMERULAR FILTRATION RATE (test code=GFR) > 60 mL/min >=60 Estimated GFR by using Modified MDRD formula.Chronic kidney disease is defined as either kidney damageor GFR <60 mL/min/1.73 m2 for >3 months. CREATININE (test code=CREAT) 0.70 mg/dL 0.55-1.02 Note change in reference range due to change in reagent. BUN/CREATININE RATIO (test code=BUN/CREA) 14.3 10-20 CALCIUM (test code=CA) 9.1 mg/dL 8.5-10.1 HCG SERUM [id number] 13:56:00* Test Item Value Reference Range Comments HCG SERUM QUAL (test code=HCGQL) NEGATIVE BASIC METABOLIC [id number] 13:45:00* Test Item Value Reference Range Comments SODIUM (test code=NA) 139 mmol/L 136-145 POTASSIUM (test code=K) 3.7 mmol/L 3.5-5.1 CHLORIDE (test code=CL) 109.0 mmol/L 98-107 CARBON DIOXIDE (test code=CO2) mmol/L 21-32 ANION GAP (test code=GAP) 10-20 GLUCOSE (test code=GLU) mg/dL 74-106 BLOOD UREA NITROGEN (test code=BUN) mg/dL 7-18 GLOMERULAR FILTRATION RATE (test code=GFR) mL/min >=60 CREATININE (test code=CREAT) mg/dL 0.55-1.02 BUN/CREATININE RATIO (test code=BUN/CREA) 10-20 CALCIUM (test code=CA) 9.1 mg/dL 8.5-10.1 HCG SERUM [id number] 13:45:00* Test Item Value Reference Range Comments HCG SERUM QUAL (test code=HCGQL) NEGATIVE MRI LUMBAR WOCLINICAL INDICATION: M54.16 Radiculopathy, lumbar region, low back pain and right leg pain and weakness for 1 year.MODALITY: ACR accredited [employer] II 1.5 Belkis MRI TECHNIQUE: Multiplanar multi sequence MRI examination of the lumbar spine was performed.IMPRESSION:1. Five lumbar vertebra noted. The numbering system is depicted below. There is a rudimentary S1-S2 disc which is non mobile.2. No destructive osseous lesions.3. At L5-S1 there is disc degeneration, 5 mm spondylitic protrusion, eccentric to the right. There is severe right foraminal stenosis with impingement of right L5/right S1 nerve roots. Canal is mildly stenotic.4. At L4-5 there is 1 mm diffuse posterior protrusion with patent canal and patent foramen.5. Multilevel hypertrophic degenerative facet arthrosis, most severe at L5-S1.FINDINGS:COMPARISON: noneGeneral observations: There are five lumbar vertebra. The last mobile disc space is considered to be L5-S1. There is a rudimentary S1-S2 disc/non mobile. The numbering system is depicted below. Lordosis and alignment are intact.There are no fractures or destructive osseous lesions.Vertebral body heights are well maintained without destructive lesion.There is mild degeneration at L4-5 disc. There is moderate degeneration at L5-S1.There are no paraspinous or prevertebral masses.Conus medullaris and cauda equina are normal with conus terminating at T12-L1.FINDINGS AT SPECIFIC LEVELS:L5-S1: There is moderate loss of disc height with spondylosis, nuclear dehydration and fibrofatty degenerative endplate changes. There is 5 mm posterior spondylitic protrusion which is eccentric to the right. There is effacement of ventral thecal sac. There is compression of right lateral recess and narrowing of proximal right foramen with impingement of exiting right L5 and descending right S1 nerve roots. Central canal is mildly stenotic. Left foramen is moderately narrowed. Right foramen is severely narrowed. Moderately severe facet arthrosis is present bilaterally.L4-L5: Disc height is minimally reduced with nuclear dehydration. There is 1 mm diffuse posterior protrusion. Central canal is patent. Foramen are patent. Facet joints are mild to moderately hypertrophic and degenerated with prominent ligamentum flavum. TheL3-L4: Disc is well-maintained. Canal and foramen are patent. Facet joints are mildly hypertrophic and degenerated.L2-L3: Disc is well-maintained. Central canal is widely patent with patent foramen. Facet joints are mild to moderately degenerated.L1-L2: Central canal and foramen are patent. Facet joints are mild to moderately degenerated.MRI CERVICAL WOCLINICAL INDICATION: M54.12 Radiculopathy, cervical region , neck pain with pain in the right arm and fingers.MODALITY: ACR accredited [email or web address] II 1.5 Belkis MRITECHNIQUE: Multiplanar SE and FSE evaluation of the cervical region was performed without contrast enhancement.IMPRESSION:1. There is straightened cervical lordosis.2. No destructive osseous lesions.3. Normal craniocervical junction and normal cervical spinal cord.4. Mild degeneration of discs from C4-5 - C6-7 without focal disc herniation, spinal canal stenosis or foraminal stenosis. Broad-based 1 mm - 2 mm protrusions are present at the levels of C4-5 and C5-6.5. Multilevel uncinate joint arthrosis and facet joint arthrosis.FINDINGS:COMPARI SON: noneCervical lordosis is straightened.Vertebral body heights are well maint ained. 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 Cord is normal. Uncinate joints and facet joints are mildly degenerated.C3-C4: Disc is well-maintained. Central canal and foramen are patent. Cord is normal. Uncinate joints are mildly degenerated. Facet joints are mild to moderately degenerated.C4-C5: Disc is mildly reduced with nuclear dehy dration. Diffuse 1 mm posterior protrusion is present with patent canal and barcenas nt foramen. Cord is normal. There are mild hypertrophic uncinate joints and mild to moderate degenerated facet joints bilaterally.C5-C6: Disc height is mildly r educed. There is mild nuclear dehydration. There is 2 mm diffuse spondylitic pro trusion which abuts ventral cord. There is no cord compression. Protrusion is sl ightly eccentric to the left. Central canal is patent. Foramen are patent. Uncin ate joints and facet joints are mildly degenerated.C6-C7: Disc height is well-ma intained. There is mild nuclear dehydration. There are no disc herniations. Bernadine l and foramen are patent with normal cord. Facet joints are mildly degenerated.C 7-T1: No abnormalities.
--- OUTSIDE RECORDS SUMMARY | 2018-11-02 09:03 | XMS REPORT | Summary of Care ---
Author Organization Unknown Address Unknown Phone Unavailable Encounter HQ Jenniferr_tnoy(CHARLES) [id number] Date(s): 04/24/14 - 05/02/14 [facility] [address] [place], [place] [id number] [place] [address] Discharge Disposition: Home Physician Attending: Adrien Flaherty DO Physician Admitting: Adrien Flaherty DO Physician_Referring: Bacilio Resendiz MD Reason for Visit 682.2/789.00/84342 Vital Signs 1 2 3 Most recent [...] Medications acetaminophen 650 mg, 1 supp, Route: AK, Drug form: SUPP, Q4H, Dosing Weight 91.023, kg, PRN F or Temp > 100.4 F, Start date: 04/24/14 13:23:00, Duration: 30 day, Stop date: 05/24/14 13:22:00 Notes: Max dfvhhgcymupfw=3066 mg/day (4 gm/day). (Same as: Tylenol) Start Date: 04/24/14 Stop Date: 05/03/14 Status: Discontinued acetaminophen 650 mg, 20.3 mL, Route: PO, Drug form: LIQ, Q4H, Dosing Weight 91.023, kg, PRN P ain Score 1-3, Start date: 04/24/14 13:23:00, Duration: 30 day, Stop date: 05/24 13:22:00 Notes: Max khhsxgijjasgk=4515db/day (4 gm/day). (Same as: Tylenol) Start Date: 04/24/14 Stop Date: 05/03/14 Status: Discontinued Biaxin 250 mg, 1 tab, Route: PO, Drug form: TAB, [id number], Dosing Weight 91.023, kg, Sta rt date: 04/27/14 14:00:00, Stop date: 05/27/14 2:00:00 Notes: (Same As: Biaxin) Start Date: 04/27/14 Stop Date: 04/29/14 Status: Discontinued Biaxin 250 mg, 1 tab, Route: PO, Drug form: TAB, [id number], Dosing Weight 91.023, kg, Sta rt date: [...] mg oral tablet 250 mg=1 tab, PO, [id number], # 28 tab, 0 Refill(s) Start Date: [...] INJ, POST OP, Dosing Weight 91.023, kg, AK N Pain Score 7-10, Start date: 04/24/14 13:35:00, Duration: 30 day, Stop date: 0 05/24/14 13:34:00 Start Date: 04/24/14 Stop Date: 05/03/14 Status: Discontinued enoxaparin 30 mg, 0.3 mL, Route: SUB-Q, Drug form: INJ, [id number], Dosing Weight 91.023, kg, Start date: 04/25/14 [...] 150 mL, Route: IVPB, Drug form: SOLN, [id number], Dosing Weight 91.023, kg, Start date: 04/27/14 14:00:00, Duration: 30 day, Stop date: 05/25/14 14:00:00 Notes: (Same as:Levaquin) Start Date: 04/27/14 Stop Date: 2/4/15 Status: Discontinued Levaquin 750 mg oral tablet 750 mg=1 tab, PO, Q48H, # 7 tab, 0 Refill(s) Start Date: 05/03/14 Stop Date: 05/17/14 Status: Ordered levofloxacin 500 mg, 100 mL, Route: IVPB, Drug form: INJ, [id number], Dosing Weight 91.023, kg, Start date: 04/24/14 14:00:00, Duration: 30 day, Stop date: 05/23/14 14:00:00 Notes: (Same as:Levaquin) Start Date: 04/24/14 Stop Date: 04/24/14 Status: Discontinued Lovenox 30 mg, 0.3 mL, Route: SUB-Q, Drug form: INJ, [id number], Dosing Weight 91.023, kg, For CrCl <30mL/min, Start date: 04/30/14 14:00:00, Duration: 30 day, Stop date: 05/29/14 14:00:00 Notes: (Same as: Lovenox) Start Date: 04/30/14 Stop Date: 05/03/14 Status: Discontinued [id number] 1,000 mL 1,000 mL, Rate: 100 ml/hr, [...] 200 mL, Route: IVPB, Drug form: INJ, [id number], Dosing Weight 91.023, kg, St art date: [...] 100 mL, Route: IVPB, Drug form: PDR/INJ, [id number], Dosing Weight 91.023 , kg, Start date: [...] values reflect the clinical guidelines of the [place] [employer]. 5Interpretive Data: Adult reference range values reflect the clinical guidelines of the [place] [employer]. 6Interpretive Data: Adult reference range values reflect the clinical guidelines of the [place] [employer]. TOXICOLOGY 1 2 3 Most [...] one week, labs schedule given to patient VitalsTmp(F)Tmp(C)RztmwFTZGSCfjlxVPKkS0BMU6RNDA0 05/03 12:3098.436.05ospi946/86---8414--------- 05/03 07:4597.436.37tqgv428/90---26175--------- 05/03 04:1198.837.39kcdp212/84---90440--------- 05/02 23:4298.837.45jvkd221/88---9816--------- 05/02 19:1698.236.42dvgd267/78---8416--------- 24 Hr Tmax: 99.5F (37.50c) at 05/02 15:58Vital Signs are the last 5 in the past 48 hours. 24 Hr Tmin: 97.4F (36.33c) at 05/03 07:45Weights are the last 5 in 60 days, plus initial. DateWt(kg)Wt(lb)Ht(cm)Ht(in)MethodBMIBSA 04/24 (initial) 91.02 200.25Measured 36.72.00 48757.48 62.00Stated (no point of care glucose results charted in last 24 hours) Most Recent Scores: 05/03/14Johns Mack Fall Score0 05/03/14Pain Intensity NRS (0-10)0 05/02/14Glasgow Coma Score15 05/02/14Braden Score21 Lines, Tubes, and Drains: 05/01/2014 07:25 Peripheral Lines: Forearm Left Over the needle catheter 04/24/2014 13:30 Gastric Tubes: Nasogastric Nostril, right 14 Estonian 04/24/2014 12:48 Surgical Procedures: 04/24/14 12:11LAPAROSCOPIC GASTRIC BAND REMOVAL [id number] Surgeon: Bacilio Resendiz MD (Service: GEN) Input/Output [...]
[2018-11-02 11:45] VITALS: BP 140/82
--- NOTE | 2018-11-02 13:09 | Operative Report ---
DATE OF PROCEDURE: 11/02/2018 SURGEON: Teri Ma DPM PREOPERATIVE DIAGNOSES: 1. Chronic plantar fasciitis. 2. Painful bone spur, right foot. 3. History of rheumatoid arthritis. POSTOPERATIVE DIAGNOSES: 1. Chronic plantar fasciitis. 2. Painful bone spur, right foot. 3. History of rheumatoid arthritis. PROCEDURES: 1. Endoscopic plantar fasciotomy, right foot. 2. Excision of bone spur, right foot. 3. Use of human allograft to prevent adhesions to promote healing. COMPLICATIONS: None. CONDITION: Stable. PROCEDURE IN DETAIL: Under mild sedation, the patient was brought to the operating room, placed on the operating table in supine position. Following IV sedation, anesthesia was obtained with a general anesthetic. At this point, the right foot was scrubbed, prepped, and draped in usual aseptic manner, it was then lowered to the table after the ankle tourniquet was inflated to 250 mmHg. Attention was then directed to the medial aspect of the right foot, where a linear incision was made overlying the incision of the plantar fascia. The incision was deepened down to the level of the plantar fascia. The fascia was then used to separate the fascia, trocar, and cannula were inserted. A lateral incision was then made. The camera was inserted, medial central and lateral bands were visualized. The lateral band was left intact, but the medial and central bands were transected through and through, this was confirmed visually. All instruments were then removed. Attention was then directed to the plantar aspect of the right foot, where utilizing a power rasp, under the syringe laparoscopy the bone spur was isolated and it was rasped down to clean viable tissue, this was confirmed with the use of intraoperative fluoroscopy. The areas were flushed with copious amount of normal sterile saline solution. The human allograft was inserted into the area, noted to promote healing to prevent adhesions of the area. The area was then closed, closing with 4-0 nylon. Clean dressing was applied consisting of Adaptic, Coban, 4x4s, Kerlix, Webril, posterior splint was applied, and was secured utilizing an Victor Hugo bandage. The patient tolerated the procedure and anesthesia well without complications, was transferred to recovery room with vital signs stable and vascular status intact to both feet. The patient will be discharged home when she meets criteria. She is to be strictly nonweightbearing to ice and elevate the foot while at rest. Follow up with me in the office and to call the office if any questions, concerns, or new problems arise. KAILEE Null/DOMO /[id number]
== END | disposition home or self-care (01) ==
LOC: OR 08:53
PROVIDERS: ATTEND Podiatrist Foot & Ankle Surgery
DX: M72.2 Plantar fascial fibromatosis (principal); M77.51 Other enthesopathy of right foot and ankle; M06.9 Rheumatoid arthritis, unspecified; M79.7 Fibromyalgia; I10 Essential (primary) hypertension; K21.9 Gastro-esophageal reflux disease without esophagitis; K44.9 Diaphragmatic hernia without obstruction or gangrene; F32.9 Major depressive disorder, single episode, unspecified; F41.9 Anxiety disorder, unspecified; Z01.810 Encounter for preprocedural cardiovascular examination
CPT/HCPCS: 28104; 29893; 81025; 93005; J0690; J1100; J1170; J1885; J2001; J2250; J2405; J2704; J3010; 76000; Q4150

== ENCOUNTER → 2019-05-25 | Outpatient (CLI) | payer BC, MEDICARE ==
[~2019-05-25] MED LIST changes: +AIMOVIG IM; -BUPIVACAINE HCL 0.5% INJ 30 ML VIAL INJ ONE; -CEFAZOLIN SOD 1 GM/NS 50ML 100 ML IV ONE; -DEXAMETHASONE SOD PHOS INJ 4 MG/ML VIAL ONE; -FENTANYL CITRATE/PF 100MCG/2 ML INJ ONE; -HYDROMORPHONE 2MG/ML 2 MG/ML ML ONE; +HYDROXYZINE HCL25 MG PO; -KETOROLAC TROMETHAMINE 30 MG/ML VIAL ONE; -LIDOCAINE HCL 2% LOCAL INJ 5 ML SDV VIAL INJ ONE; -MIDAZOLAM HCL 2 MG/2 ML VIAL ONE; -MUPIROCIN 2% OINT 22 GM TUBE ONE; -ONDANSETRON HCL INJ 2MG/ML 2ML 2 MG/ML VIAL ONE; +PANTOPRAZOLE SO40 MG PO; -PROPOFOL IV EMULSION 10 MG/ML 20 ML VIAL ONE; -SEVOFLURANE INHAL SOLN 250 ML PEN BTL ONE; +SUMATRIPTAN SUC25 MG PO; +VITAMIN D2400 UNIT PO; +ZOLPIDEM TARTRAT5 MG PO
--- NOTE | 2019-05-25 09:28 | Diagnostic Imaging Report ---
EXAM: US ABDOMEN COMPLETE DATE: 05/25/2019 8:25 AM INDICATION: Epigastric pain COMPARISON: None FINDINGS: The visualized pancreas appears unremarkable. The liver is normal in size measuring 15.2 cm in length. Hepatic echogenicity is within normal limits. No focal hepatic abnormality is identified. The main portal vein is patent with antegrade flow and diameter of 0.9 cm, within normal limits. Multiple shadowing stones are identified within the gallbladder. There is no evidence for gallbladder distention, wall thickening, or pericholecystic fluid. There is no intra or extra hepatic biliary ductal dilatation. The common bile duct measures 2 mm. Sonographic Estrada's sign is negative. The spleen is normal in size measuring 9.4 cm in length and demonstrates an unremarkable sonographic appearance. The kidneys are normal in size measuring 10.5 cm in length on the right and 10.5 cm in length on the left. Cortical thickness and echogenicity are within normal limits. There is no evidence for solid renal mass, hydronephrosis, or shadowing calculi. The visualized portions the IVC and aorta are within normal limits. There is no ascites present. IMPRESSION: Cholelithiasis without sonographic evidence for acute cholecystitis. Signed by: Dr. Danny Smith MD on 05/25/2019 9:25 AM
--- NOTE | 2019-05-25 19:27 | Diagnostic Imaging Report ---
Solid-phase gastric emptying study Reason for examination: Epigastric pain; chronic nausea and vomiting The protocol used for this study is based on the Consensus Recommendations for Gastric Scintigraphy by the [place] [employer] and the Society of [employer]. Clinical information: The patient is not diabetic. The patient has not had prior gastrointestinal surgery. The patient is not on any medications expected to affect gastric motility. The patient has been fasting for at least 6 hours prior to this exam. Radiopharmaceutical: Tc-99m sulfur colloid 1 mCi Report: The radiopharmaceutical was added to 1/2 cup egg whites that were then prepared and served with 2 pieces of white bread toasted, 30 grams of jam and 4 ounces of water. The patient took the meal orally without difficulty. Images were obtained of the abdomen in the anterior and posterior projections at 10 minutes post the meal and at 1, 2, 3, and 4 hours. Uptake was determined from the geometric mean of the anterior and posterior counts and the counts were corrected for decay of the radiolabel. The percent gastric retention of the labeled meal at: 1 hour was 72% (normal 30-90%) 2 hours was 32% (normal <60%) 3 hours was 14% (normal <30%) 4 hours was 1% (normal <10%) Impression: Normal gastric emptying pattern. The findings do not support the clinical diagnosis of gastroparesis. Signed by: Dr. Antonella Negro M.D. on 05/25/2019 7:24 PM
== END ==
LOC: US 08:17
PROVIDERS: ATTEND Internal Medicine Gastroenterology
DX: R10.13 Epigastric pain (principal); R11.0 Nausea; K57.30 Diverticulosis of large intestine without perforation or abscess without bleeding; K44.9 Diaphragmatic hernia without obstruction or gangrene; K58.9 Irritable bowel syndrome, unspecified; R10.12 Left upper quadrant pain; E11.9 Type 2 diabetes mellitus without complications; Z71.3 Dietary counseling and surveillance; I10 Essential (primary) hypertension; E66.9 Obesity, unspecified
CPT/HCPCS: 76700; 78264; A9541